=== PATIENT | female | born 1940 | race Caucasian/White ===

== ENCOUNTER 2016-12-12 20:53 | Inpatient (IN) | payer MEDICARE, MEDICAID ==
[2016-12-12 22:15] LABS: HEMATOCRIT 27.9 % (41.0-60); HEMOGLOBIN 9.3 gm/dL (12-16); MEAN CELL VOLUME 93.2 fl (81-100); MEAN CORPUSCULAR HEMOGLOBIN 31.1 pg (27.0-31.0); MEAN CORPUSCULAR HGB CONC 33.4 pg (28.0-36.0); PLATELET COUNT 219 Th/cmm (150-400); RED BLOOD COUNT 2.99 Mil/cmm (3.80-5.20); RED CELL DISTRIBUTION WIDTH 14.9 % (11.5-20.0)
[2016-12-12 22:20] LABS: MANUAL DIFF REQUIRED? YES; WHITE BLOOD COUNT 12.4 Th/cmm (4.8-10.8)
[2016-12-12 22:23] LABS: INR 0.9 (0.5-1.4); PROTHROMBIN TIME (TEST) 9.3 SECONDS (9.5-11.5)
[2016-12-12] MEDS ORDERED: Levofloxacin 500mg/100mL 500 MG/100 ML BAG IV ONE ×2 (22:23→22:55)
[2016-12-12 22:27] LABS: ALB/GLOB RATIO 0.7 (1.0-1.8); ALBUMIN 2.5 gm/dL (3.7-5.3); ALKALINE PHOSPHATASE 105 U/L (34-104); ANION GAP 11.1 (7.0-16.0); BILIRUBIN,TOTAL 0.3 mg/dL (0.3-1.0); BUN - UREA NITROGEN 59 mg/dL (7-25); CALCIUM SERUM 8.2 mg/dL (8.6-10.3); CARBON DIOXIDE 26.9 mEq/L (21.0-31.0); CHLORIDE 94 mEq/L (98-107); CHOLESTEROL 145 mg/dL (<200); CREATININE - SERUM 1.2 mg/dL (0.6-1.2); CREATININE KINASE < 10 U/L (30-223); GLUCOSE 151 mg/dL (70-105); HDL -HIGH DENSITY LIPOPROTEIN 36 mg/dL (23-92); SGOT 27 U/L (13-39); SGPT/ALT 37 U/L (7-52); SODIUM SERUM 128 mEq/L (136-145); TOTAL PROTEIN,SERUM 6.2 gm/dL (6.0-8.3); TRIGLYCERIDES 215 mg/dL (<150)
--- NOTE | 2016-12-12 22:29 | ED Physician Chart ---
ED Chief Complaint/HPI - Patient Information Date Seen:: 12/12/16 Time Seen:: 21:25 Chief Complaint:: Weakness History of Present Illness:: onset x one day of generalized weakness with poor appetite; Abnormal Labs occurred and pt was sent to ER for further evaluation; no report of trauma, AMS , ALOC, LOC, H/As, neck pain, C/P, SOB, cough, Abd. Pain, N/V/D/C, fever, chills , or pelvic pain; Hx of UTIs Allergies:: Allergies Allergy/AdvReac Type Severity Reaction Status Date / Time No Known Allergies Allergy Verified 12/12/16 21:19 Vitals:: Vital Signs - 8 hr 12/12/16 21:15 Temp 98.1 F HR 68 RR 20 BP 116/45 O2 Sat % 100 Historian:: Patient, EMS Review:: Nurse's Note Reviewed, Old Chart Reviewed, EMS run form Reviewed ED Review of Systems - Review of Systems General/Constitutional: Fever, Chills, No weight loss, No weakness, No diaphoresis, No edema, No loss of appetite Skin: No skin lesions, No rash, No bruising Head: No headache, No light-headedness Eyes: No loss of vision, No pain, No diplopia ENT: No earache, No nasal drainage, No sore throat, No tinnitus Neck: No neck pain, No swelling, No thyromegaly, No stiffness, No mass noted Cardio Vascular: No chest pain, No palpitations, No PND, No orthopnea, No edema Pulmonary: SOB, Cough, No sputum, Wheezing GI: No nausea, No vomiting, No diarrhea, No pain, No melena, No hematochezia, No constipation, No hematemesis G/U: Dysuria, Frequency, No hematuria, No nacturia Manager Monitoring: No vaginal discharge, No abnormal vaginal bleed, No contraction Musculoskeletal: No bone or joint pain, No back pain, No muscle pain Endocrine: Polyuria, Polydipsia Psychiatric: No prior psych history, No depression, No anxiety, No suicidal ideation Hematopoietic: No bruising, No lymphadenopathy Allergic/Immuno: No urticaria, No angioedema Neurological: No syncope, No focal symptoms, No weakness, No paresthesia, No headache, No seizure, No dizziness, No confusion, No vertigo ED Past Medical History - Past Medical History Obtainable: Yes Past Medical History: HTN, DM, Asthma/COPD, Dyslipidemia, PUD/GERD, Arthritis Family History: Diabetes Melitus, HTN Social History: Non Smoker, No Alcohol, No Drug Use, Single, Care Facility Surgical History: PEG/GTube Psychiatricy History: None Medication: Reviewed ED Physical Exam - Physical Examination General/Constitutional: Awake, Well-developed, well-nourished, Alert, No distress, GCS 15, Non-toxic appearing, Ambulatory Head: Atraumatic Eyes: Lids, conjuctiva normal, PERRL, EOMI Skin: Nl inspection, No rash, No skin lesions, No ecchymosis, Well hydrated, No lymphadenopathy ENMT: External ears, nose nl, TM canals nl, Nasal exam nl, Lips, teeth, gums nl , Oropharynx nl, Tonsils nl Neck: Nontender, Full ROM w/o pain, No JVD, No nuchal rigidity, No bruit, No mass, No stridor Respiratory: Nl effort/Exclusion Other Respiratory comments:: Lungs: + Rales and Rhonchi Cardio Vascular: RRR, No murmur, gallop, rubs, NL S1 S2 GI: No tenderness/rebounding/guarding, No organomegaly, No hernia, Normal BS's, Nondistended, No mass/bruits, No McBurney tenderness : No CVA tenderness Extremities: No tenderness or effusion, Full ROM, normal strength in all extremities, No edema, Normal digits & nails Neuro/Psych: Alert/oriented, DTR's symmetric, Normal sensory exam, Normal motor strength, Judgement/insight normal, Mood normal, Normal gait, No focal deficits Misc: Normal back, No paraspinal tenderness ED Labs/Radiology/EKG Results - Lab Results Results: Laboratory Tests 12/12/16 21:56 WBC 12.4 H RBC 2.99 L Hgb 9.3 L Hct 27.9 L MCV 93.2 MCH 31.1 H MCHC Differential 33.4 RDW 14.9 Plt Count 219 MPV 10.0 - Radiology Results Comments:: CXR: + Infiltrate - EKG Interpretations EKG Time:: 22:29 Rate & Rhythm: 64; NSR Comments:: non-specific st-t changes; RBBB; T-Wave Inversions in V4, V5, and V6 ED Septic Shock - . Is Septic Shock (SBP<90, OR Lactate>4 mmol\L) present?: No - <6hrs of presentation: Vital Signs: Vital Signs - 8 hr 12/12/16 21:15 Temp 98.1 F HR 68 RR 20 BP 116/45 O2 Sat % 100 ED Reassessment (Disposition) - Reassessment Reassessment Condition:: Improved - Diagnosis Diagnosis:: Myocardial Ischemia; Anemia; Leukocytosis; Sepsis; PNA; Weakness; Dehydration - Aftercare/Follow up Instructions Aftercare/Follow-Up Instructions:: Counseled pt regarding lab results/diagnosis & need follow up, Counseled pt & family regarding lab results/diagnosis & need follow up - Patient Disposition Discharge/Transfer:: Acute Care w/in this hosp Accepting Physician:: Dr. Galvan Time Called:: 2199 Time Responded:: 22:00 Admitted to:: Telemetry Spoke to:: Dr. Galvan Admitting Medical Physician:: dr. Galvan Condition at Disposition:: Stable, Improved
[2016-12-12 22:41] LABS: NEUTROPHILS 84 % (40-80); TOTAL CELLS COUNTED 100
[2016-12-12 22:42] LABS: BAND NEUTROPHILE 6 % (0-10); EOSINOPHIL 1 % (0-5); LYMPHOCYTE 8 % (20-50); MONOCYTE 1 % (2-10); PLATELET ESTIMATE ADEQUATE (NORMAL)
[2016-12-12 23:32] LABS: URINE MICROSCOPIC INDICATED? YES; URINE SOURCE MIDSTREAM
[2016-12-12 23:38] LABS: URINE BILIRUBIN NEGATIVE (NEGATIVE); URINE BLOOD TRACE (NEGATIVE); URINE GLUCOSE (UA) NEGATIVE (NEGATIVE); URINE KETONE NEGATIVE (NEGATIVE); URINE LEUKOCYTE ESTERASE LARGE (NEGATIVE); URINE NITRATE POSITIVE (NEGATIVE); URINE PH 6.5 (4.6 - 8.0); URINE PROTEIN 100 mg/dL (NEGATIVE); URINE UROBILINOGEN 0.2 E.U./dL (0.2 - 1.0)
[2016-12-12 23:42] LABS: URINE CLARITY CLOUDY (CLEAR); URINE COLOR YELLOW
[2016-12-12 23:45] LABS: URINE BACTERIA MANY /hpf (NONE SEEN); URINE EPITHELIAL CELLS MODERATE /lpf (FEW); URINE WBC >100 /hpf (0-5)
[2016-12-13] MEDS ORDERED: Albuterol/Ipratropium Neb 3 ML AERS HHN PRN (01:26)
[2016-12-13 02:22] VITALS: BP 118/64
[2016-12-13] MEDS: D5-0.9%NS 1,000 ML IV SCH ×2 (03:36→20:02)
[2016-12-13] MEDS: cefTRIAXone 1 GM in Sodium Chloride 0.9% 50 ML IV SCH (03:36)
[2016-12-13] MEDS: Albuterol/Ipratropium Neb 3 ML AERS HHN SCH ×6 (04:34→22:50)
[2016-12-13] MEDS: INSULIN ASPART SLIDING SCALE 100 UNITS/ML UNIT SUBQ SCH ×3 (07:03→17:31)
--- NOTE | 2016-12-13 07:34 | Diagnostic Imaging Report ---
CHEST X-RAY: AP view INDICATION: pain COMPARISON: None FINDINGS: Chronic lung changes are seen with left-sided pleural thickening. Cardiomegaly is noted. Degenerative changes of the spine are noted. Degenerative changes of shoulders are also noted. IMPRESSION: Chronic lung changes with left-sided pleural thickening. No focal consolidation identified. Cardiomegaly.
[2016-12-13] MEDS ORDERED: Non-Formulary Item 1 EA (Omeprazole [Omeprazole] 20 MG) GT SCH (09:00)
[2016-12-13] MEDS: Levetiracetam 500 mg/5mL 5mL UDC GT SCH ×2 (09:46→21:47)
[2016-12-13] MEDS: Pantoprazole 40 mg/Packet GT SCH (09:47)
[2016-12-13] MEDS: Insulin Detemir 100 units/mL 10mL Vial SUBQ SCH ×2 (10:32→21:46)
[2016-12-13] MEDS ORDERED: Probiotic Screen MC PRN (15:00)
[2016-12-13] MEDS: Acetaminophen 160 MG/5 ML UDC PO PRN (20:01)
[2016-12-13] MEDS ORDERED: Non-Formulary Item 1 EA (Melatonin [Melatonin] 6 MG) GT SCH (21:00)
--- NOTE | 2016-12-13 22:12 | History & Physical ---
ADMIT DATE: 12/13/2016 HISTORY OF PRESENT ILLNESS: This patient is very well known to me. The patient has been in [facility], but now the patient was at [facility]. The patient is known to have a history of hypertension, history of diabetes, history of COPD, history of seizures, history of osteoarthritis, history of dysphagia, and patient has had multiple medications, essentially was having poor intake. The patient was very weak. The patient had a urinalysis done which showed a lot of white cells and bacteria in the urine as well as 3+ leukocyte esterase positive and the patient was somewhat confused and the Dilantin level was less than 2.5 for which he was referred to the Emergency Room at [facility]. The patient was evaluated and because the patient had dysuria, foul smelling, as well as the patient was confused with possible sepsis, the patient was admitted. The patient apparently had a workup done, which included white count of 12.4, hemoglobin of 9.3, and the patient's sodium was very low at 128. The patient's BUN is 59, creatinine 1.2, and also alkaline phosphatase was high. Beta natriuretic peptide was slightly high and, of course, her urine had evidence of infection. PHYSICAL EXAMINATION: GENERAL: The patient is awake, but confused. HEAD: Normocephalic. NECK: Supple, nontender. LUNGS: Bilateral rales. CARDIOVASCULAR SYSTEM: S1, S2 heard. ABDOMEN: Soft. Bowel sounds are heard. CENTRAL NERVOUS SYSTEM: Decreased sensorium. DIAGNOSES: Sepsis, possible sepsis syndrome, anemia, pneumonia, myocardial ischemia, hyponatremia, arthritis, history of dysphagia, history of gastrotomy status, history of COPD, and history of sleep apnea was made. PLAN: The patient is going to be admitted and will have IV antibiotics, fluids, and will have ID consult and also Neurology consult, and I will follow the patient closely. [facility]# [id number]
[2016-12-14] MEDS: INSULIN ASPART SLIDING SCALE 100 UNITS/ML UNIT SUBQ SCH ×4 (01:09→17:54)
[2016-12-14] MEDS: cefTRIAXone 1 GM in Sodium Chloride 0.9% 50 ML IV SCH (04:09)
[2016-12-14 05:55] LABS: MEAN PLATELET VOLUME 9.5 fl; RED CELL DISTRIBUTION WIDTH 15.3 % (11.5-20.0)
[2016-12-14] MEDS: Acetaminophen 160 MG/5 ML UDC PO PRN ×2 (06:14→17:47)
[2016-12-14 06:16] LABS: MEAN CELL VOLUME 92.1 fl (81-100); MEAN CORPUSCULAR HEMOGLOBIN 31.2 pg (27.0-31.0); MEAN CORPUSCULAR HGB CONC 33.9 pg (28.0-36.0); PLATELET COUNT 209 Th/cmm (150-400); RED BLOOD COUNT 2.49 Mil/cmm (3.80-5.20); WHITE BLOOD COUNT 10.2 Th/cmm (4.8-10.8)
[2016-12-14 06:27] LABS: ANION GAP 9.6 (7.0-16.0); BUN - UREA NITROGEN 58 mg/dL (7-25); CALCIUM SERUM 6.9 mg/dL (8.6-10.3); CHLORIDE 102 mEq/L (98-107); CREATININE - SERUM 1.2 mg/dL (0.6-1.2); GLUCOSE 219 mg/dL (70-105); POTASSIUM SERUM 3.6 mEq/L (3.5-5.1); SODIUM SERUM 134 mEq/L (136-145)
[2016-12-14 06:47] LABS: HEMOGLOBIN 7.8 gm/dL (12-16); MANUAL DIFF REQUIRED? YES
[2016-12-14] MEDS: Albuterol/Ipratropium Neb 3 ML AERS HHN SCH ×5 (07:02→23:09)
[2016-12-14 07:12] LABS: A1C % 7.3 % (4.0-6.0)
[2016-12-14 07:23] LABS: BAND NEUTROPHILE 6 % (0-10); EOSINOPHIL 1 % (0-5); LYMPHOCYTE 18 % (20-50); MONOCYTE 5 % (2-10); NEUTROPHILS 70 % (40-80); TOTAL CELLS COUNTED 100
[2016-12-14] MEDS: Pantoprazole 40 mg/Packet GT SCH (08:53)
[2016-12-14] MEDS: Levetiracetam 500 mg/5mL 5mL UDC GT SCH ×2 (08:53→21:43)
[2016-12-14] MEDS: Lactobacillus Rhamnosus 10 Billion CFU Capsule PO SCH (08:53)
[2016-12-14] MEDS: Insulin Detemir 100 units/mL 10mL Vial SUBQ SCH ×2 (08:57→21:42)
[2016-12-14] MEDS: D5-0.9%NS 1,000 ML IV SCH (10:31)
[2016-12-14] MEDS: Acetaminophen 160 MG/5 ML UDC GT PRN ×2 (12:07→21:43)
[2016-12-14 18:16] LABS: HEMATOCRIT 23.5 % (41.0-60); MEAN CORPUSCULAR HEMOGLOBIN 31.5 pg (27.0-31.0); MEAN CORPUSCULAR HGB CONC 33.9 pg (28.0-36.0); MEAN PLATELET VOLUME 9.2 fl; PLATELET COUNT 189 Th/cmm (150-400); RED BLOOD COUNT 2.53 Mil/cmm (3.80-5.20); RED CELL DISTRIBUTION WIDTH 15.6 % (11.5-20.0); WHITE BLOOD COUNT 11.1 Th/cmm (4.8-10.8)
[2016-12-14 18:20] LABS: MANUAL DIFF REQUIRED? YES
[2016-12-14 18:45] LABS: BAND NEUTROPHILE 4 % (0-10); LYMPHOCYTE 13 % (20-50); MONOCYTE 3 % (2-10); NEUTROPHILS 80 % (40-80); PLATELET ESTIMATE ADEQUATE (NORMAL); TOTAL CELLS COUNTED 100
--- NOTE | 2016-12-14 22:16 | General Progress Note ---
Subjective - Review of Systems Service Date: 12/14/16 Subjective: awake confused nad Objective - Results Result Diagrams: 12/14/16 18:03 12/14/16 05:20 Recent Labs: Laboratory Last Values WBC 11.1 Th/cmm (4.8-10.8) H 12/14/16 18:03 RBC 2.53 Mil/cmm (3.80-5.20) L 12/14/16 18:03 Hgb 8.0 gm/dL (12-16) L 12/14/16 18:03 Hct 23.5 % (41.0-60) L 12/14/16 18:03 MCV 93.0 fl (81-100) 12/14/16 18:03 MCH 31.5 pg (27.0-31.0) H 12/14/16 18:03 MCHC Differential 33.9 pg (28.0-36.0) 12/14/16 18:03 RDW 15.6 % (11.5-20.0) 12/14/16 18:03 Plt Count 189 Th/cmm (150-400) 12/14/16 18:03 MPV 9.2 fl 12/14/16 18:03 Band Neutrophils % 4 % (0-10) 12/14/16 18:03 Neutrophils (Manual) 80 % (40-80) 12/14/16 18:03 Lymphocytes 13 % (20-50) L 12/14/16 18:03 Monocytes 3 % (2-10) 12/14/16 18:03 Eosinophils 1 % (0-5) 12/14/16 05:20 Platelet Estimate ADEQUATE (NORMAL) 12/14/16 18:03 PT 9.3 SECONDS (9.5-11.5) L 12/12/16 21:56 INR 0.90 (0.5-1.4) 12/12/16 21:56 PTT (Actin FS) 22.0 SECONDS (26.0-38.0) L 12/12/16 21:56 Sodium 134 mEq/L (136-145) L 12/14/16 05:20 Potassium 3.6 mEq/L (3.5-5.1) 12/14/16 05:20 Chloride 102 mEq/L (98-107) 12/14/16 05:20 Carbon Dioxide 26.0 mEq/L (21.0-31.0) 12/14/16 05:20 Anion Gap 9.6 (7.0-16.0) 12/14/16 05:20 BUN 58 mg/dL (7-25) H 12/14/16 05:20 Creatinine 1.2 mg/dL (0.6-1.2) 12/14/16 05:20 Est GFR ( Amer) TNP 12/14/16 05:20 Est GFR (Non-Af Amer) TNP 12/14/16 05:20 BUN/Creatinine Ratio 48.3 12/14/16 05:20 Glucose 219 mg/dL (70-105) H 12/14/16 05:20 POC Glucose 195 MG/DL (70 - 105) H 12/14/16 21:36 Hemoglobin A1c % 7.3 % (4.0-6.0) H 12/14/16 05:20 Whole Bld Lactic Acid 1.82 mmol/L (0.60-1.99) 12/12/16 21:56 Calcium 6.9 mg/dL (8.6-10.3) L 12/14/16 05:20 Total Bilirubin 0.3 mg/dL (0.3-1.0) 12/12/16 21:36 AST 27 U/L (13-39) 12/12/16 21:36 ALT 37 U/L (7-52) 12/12/16 21:36 Alkaline Phosphatase 105 U/L (34-104) H 12/12/16 21:36 Creatine Kinase < 10 U/L (30-223) L 12/12/16 21:36 Troponin I 0.04 ng/mL (0.01-0.05) 12/12/16 21:56 B-Natriuretic Peptide 440.0 pg/mL (5.0-100.0) H 12/12/16 21:56 Total Protein 6.2 gm/dL (6.0-8.3) 12/12/16 21:36 Albumin 2.5 gm/dL (3.7-5.3) L 12/12/16 21:36 Globulin 3.7 gm/dL 12/12/16 21:36 Albumin/Globulin Ratio 0.7 (1.0-1.8) L 12/12/16 21:36 Triglycerides 215 mg/dL (<150) H 12/12/16 21:36 Cholesterol 145 mg/dL (<200) 12/12/16 21:36 LDL Cholesterol Direct 87 mg/dL (75-193) 12/12/16 21:36 HDL Cholesterol 36 mg/dL (23-92) 12/12/16 21:36 Urine Source MIDSTREAM 12/12/16 23:15 Urine Color YELLOW 12/12/16 23:15 Urine Clarity CLOUDY (CLEAR) H 12/12/16 23:15 Urine pH 6.5 (4.6 - 8.0) 12/12/16 23:15 Ur Specific [place] 1.010 (1.005-1.030) 12/12/16 23:15 Urine Protein 100 mg/dL (NEGATIVE) H 12/12/16 23:15 Urine Glucose (UA) NEGATIVE mg/dL (NEGATIVE) 12/12/16 23:15 Urine Ketones NEGATIVE mg/dL (NEGATIVE) 12/12/16 23:15 Urine Blood TRACE (NEGATIVE) 12/12/16 23:15 Urine Nitrate POSITIVE (NEGATIVE) H 12/12/16 23:15 Urine Bilirubin NEGATIVE (NEGATIVE) 12/12/16 23:15 Urine Urobilinogen 0.2 E.U./dL (0.2 - 1.0) 12/12/16 23:15 Ur Leukocyte Esterase LARGE (NEGATIVE) H 12/12/16 23:15 Urine RBC 2-5 /hpf (0-5) 12/12/16 23:15 Urine WBC >100 /hpf (0-5) H 12/12/16 23:15 Ur Epithelial Cells MODERATE /lpf (FEW) 12/12/16 23:15 Urine Bacteria MANY /hpf (NONE SEEN) 12/12/16 23:15 - Physical Exam Vitals and I&O: Vital Signs Temp 98.7 F 12/14/16 16:00 Pulse 76 12/14/16 21:44 Resp 18 12/14/16 19:20 BP 156/60 12/14/16 21:44 Pulse Ox 99 12/14/16 19:20 Intake & Output 12/14/16 12/14/16 12/15/16 06:59 18:59 06:59 Intake Total 100 1000 Output Total 350 Balance -250 1000 Weight (lbs) 100.244 kg 100.244 kg Intake: Intake, IV Amount 100 1000 D5-0.9%Ns 1,000 ml @ 75 1000 mls/hr IV .[id number] [facility] Rx #:[id number] cefTRIAXone 1 gm In 100 Sodium Chloride 0.9% 50 ml @ 100 mls/hr IV Q24HR [facility] Rx#:[id number] Oral 0 Output: Urine 350 Other: # Bowel Movements 0 Active Medications: Current Medications Acetaminophen (Tylenol Children) 320 mg GT Q4HR PRN PRN Reason: TEMP >100F Stop: 02/11/17 01:25 Last Admin: 12/14/16 21:43 Dose: 320 mg Acetaminophen (Tylenol Children) 320 mg PO Q4HR PRN PRN Reason: Pain (Mild) Stop: 02/11/17 01:25 Last Admin: 12/14/16 17:47 Dose: 320 mg Albuterol/Ipratropium (Duoneb Neb) 3 ml HHN Q2HR PRN PRN Reason: Shortness of Breath or Wheeze Stop: 02/11/17 01:25 Albuterol/Ipratropium (Duoneb Neb) 3 ml HHN Q4HRT [facility] Stop: 02/11/17 02:59 Last Admin: 12/14/16 19:32 Dose: 3 ml Amlodipine Besylate (Norvasc) 5 mg GT DAILY [facility] Stop: 02/11/17 08:59 Last Admin: 12/14/16 08:54 Dose: 5 mg Carvedilol (Coreg) 12.5 mg GT Q12HR [facility] Stop: 02/11/17 08:59 Last Admin: 12/14/16 21:44 Dose: 12.5 mg Ceftriaxone Sodium 1 gm/ (Sodium Chloride) 50 mls @ 100 mls/hr IV Q24HR [facility] Stop: 02/11/17 02:59 Last Infusion: 12/14/16 05:45 Dose: Infused Dextrose/Sodium Chloride (D5-0.9%Ns) 1,000 mls @ 50 mls/hr IV .Q20H [facility] Stop: 02/12/17 21:44 Insulin Aspart (Novolog Insulin Sliding Scale) 0 units SUBQ Q6HR [facility] PRN Reason: Protocol Stop: 02/11/17 05:59 Last Admin: 12/14/16 17:54 Dose: 6 units Insulin Detemir (Levemir Insulin) 10 units SUBQ Q12HR [facility] Stop: 02/11/17 08:59 Last Admin: 12/14/16 21:42 Dose: 10 units Lactobacillus Rhamnosus (Culturelle) 1 each PO DAILY [facility] Stop: 02/12/17 08:59 Last Admin: 12/14/16 08:53 Dose: 1 each Levetiracetam (Keppra) 1,000 mg GT Q12HR [facility] Stop: 02/11/17 08:59 Last Admin: 12/14/16 21:43 Dose: 1,000 mg Miscellaneous (Probiotic Screen) 1 ea MC PRN PRN PRN Reason: PROTOCOL Stop: 02/11/17 14:59 Pantoprazole Sodium (Protonix) 40 mg GT QAM [facility] Stop: 02/11/17 08:59 Last Admin: 12/14/16 08:53 Dose: 40 mg Phenytoin (Dilantin) 100 mg GT BID [facility] Stop: 02/11/17 08:59 Last Admin: 12/14/16 17:47 Dose: 100 mg General: Alert, Other (confused) HEENT: Atraumatic Cardiovascular: Regular rate Abdomen: Bowel sounds, Soft Extremities: Pulses Assessment/Plan - Assessment Assessment: sepsis poss sepsis syndrome anemia pneumonia myocardiac ischemia hyponatremia arthritis hx dysphagia hx gt status hx copd hx sleep apnea - Plan Plan: ivantibiotics iv fluid cpm Nutritional Asmnt/Malnutr-PDOC - Dietary Evaluation Malnutrition Findings (Please click <Entered> for more info): Nutritional Asmnt/Malnutrition Start: 12/13/16 15: 20 Text: Status: Complete Freq: Document 12/13/16 15:21 GSUN (Rec: 12/13/16 15:43 [facility] Nutritional Asmnt/Malnutrition Patient General Information Nutritional Screening High Risk Screening Diagnosis ER report: MN, sepsis, PNA, dehydration, anemia, leykocytosis, weakness Pertinent Medical Hx/Surgical Hx ER report: HTN, DM, asthma/ COPD, dyslipidemia, PUD/GERD, arthritis Subjective Information 76 year old female from SNF. 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 Observed tube feeding infusing as ordered. Confirmed tube feeding order and on/off time with GREGORIO Lozano RN stated pt tolerating well since adm. Pt appeared mobidly obese. Unable to obtain CBW due to bedscale imporperly calibrated. Current Diet Order/ Nutrition Support Diabetisource 65ml/hr x 20hrs, providing 1560kcal, 78g protein Pertinent Medications D5-0.9%ns, Novolog, Levemir, Culturelle, Protonix, Dilatin Pertinent Labs 12/12: glucose 151H, triglycerides 215H, BUN 59H POC glucose 169H, 186H Nutritional Hx/Data Height 1.55 m Height (Calculated Centimeters) 154.9 Current Weight (lbs) 100.244 kg Weight (Calculated Kilograms) 100.2 Weight (Calculated Grams) 007363.9 [place] Body Weight 105 Weight Status Morbidly Obese GI Symptoms Food Allergies No Usual diet at home [facility]: glucerna 1.2 at 60ml/hr x 20hrs Skin Integrity/Comment: [place] 13. Left and right buttocks reddened. Estimated Nutritional Goals BEE in Kcals: Adj wt of IBW Calories/Kcals/Kg AdjBW 131.5lb/59.8kg (to 211lb adm weight 12/12/16) Kcals Calculated 1794-2093kcal (30-35kcal/kg) Protein: Adj wt of IBW Protein Calculated 72-90g (1.2-1.5g/kg) Fluid: ml 1794-2093ml (1ml/kcal) Nutritional Problem 1. Problem Problem Increased kcal and prot needs related to Etiology hypermatbolic state aeb Signs/Symptoms: PNA and sepsis per ER report Malnutrition Related to Morbid Obesity Malnutrition related to morbid obesity BMI> or equal to 40 Query Text:(Any 1 Criteria met) Malnutrition related to morbid obesity Yes Intervention/Recommendation Comments 1. Recommend increasing Diabetisource to 75ml/hr x 20hrs, providing 1800kcal, 90g protein, 1500ml total volume. Increased kcal and prot needs due to hypermetabolic state - sepsis, PNA per ER report. Expected Outcomes/Goals Expected Outcomes/Goals 1. Pt to meet at least 100% of estimated nutritinoal needs on tube feeding with tolerance .
--- NOTE | 2016-12-14 22:16 | General Progress Note ---
Subjective - Review of Systems Service Date: 12/14/16 Subjective: awake confused nad Objective - Results Result Diagrams: 12/14/16 18:03 12/14/16 05:20 Recent Labs: Laboratory Last Values WBC 11.1 Th/cmm (4.8-10.8) H 12/14/16 18:03 RBC 2.53 Mil/cmm (3.80-5.20) L 12/14/16 18:03 Hgb 8.0 gm/dL (12-16) L 12/14/16 18:03 Hct 23.5 % (41.0-60) L 12/14/16 18:03 MCV 93.0 fl (81-100) 12/14/16 18:03 MCH 31.5 pg (27.0-31.0) H 12/14/16 18:03 MCHC Differential 33.9 pg (28.0-36.0) 12/14/16 18:03 RDW 15.6 % (11.5-20.0) 12/14/16 18:03 Plt Count 189 Th/cmm (150-400) 12/14/16 18:03 MPV 9.2 fl 12/14/16 18:03 Band Neutrophils % 4 % (0-10) 12/14/16 18:03 Neutrophils (Manual) 80 % (40-80) 12/14/16 18:03 Lymphocytes 13 % (20-50) L 12/14/16 18:03 Monocytes 3 % (2-10) 12/14/16 18:03 Eosinophils 1 % (0-5) 12/14/16 05:20 Platelet Estimate ADEQUATE (NORMAL) 12/14/16 18:03 PT 9.3 SECONDS (9.5-11.5) L 12/12/16 21:56 INR 0.90 (0.5-1.4) 12/12/16 21:56 PTT (Actin FS) 22.0 SECONDS (26.0-38.0) L 12/12/16 21:56 Sodium 134 mEq/L (136-145) L 12/14/16 05:20 Potassium 3.6 mEq/L (3.5-5.1) 12/14/16 05:20 Chloride 102 mEq/L (98-107) 12/14/16 05:20 Carbon Dioxide 26.0 mEq/L (21.0-31.0) 12/14/16 05:20 Anion Gap 9.6 (7.0-16.0) 12/14/16 05:20 BUN 58 mg/dL (7-25) H 12/14/16 05:20 Creatinine 1.2 mg/dL (0.6-1.2) 12/14/16 05:20 Est GFR ( Amer) TNP 12/14/16 05:20 Est GFR (Non-Af Amer) TNP 12/14/16 05:20 BUN/Creatinine Ratio 48.3 12/14/16 05:20 Glucose 219 mg/dL (70-105) H 12/14/16 05:20 POC Glucose 195 MG/DL (70 - 105) H 12/14/16 21:36 Hemoglobin A1c % 7.3 % (4.0-6.0) H 12/14/16 05:20 Whole Bld Lactic Acid 1.82 mmol/L (0.60-1.99) 12/12/16 21:56 Calcium 6.9 mg/dL (8.6-10.3) L 12/14/16 05:20 Total Bilirubin 0.3 mg/dL (0.3-1.0) 12/12/16 21:36 AST 27 U/L (13-39) 12/12/16 21:36 ALT 37 U/L (7-52) 12/12/16 21:36 Alkaline Phosphatase 105 U/L (34-104) H 12/12/16 21:36 Creatine Kinase < 10 U/L (30-223) L 12/12/16 21:36 Troponin I 0.04 ng/mL (0.01-0.05) 12/12/16 21:56 B-Natriuretic Peptide 440.0 pg/mL (5.0-100.0) H 12/12/16 21:56 Total Protein 6.2 gm/dL (6.0-8.3) 12/12/16 21:36 Albumin 2.5 gm/dL (3.7-5.3) L 12/12/16 21:36 Globulin 3.7 gm/dL 12/12/16 21:36 Albumin/Globulin Ratio 0.7 (1.0-1.8) L 12/12/16 21:36 Triglycerides 215 mg/dL (<150) H 12/12/16 21:36 Cholesterol 145 mg/dL (<200) 12/12/16 21:36 LDL Cholesterol Direct 87 mg/dL (75-193) 12/12/16 21:36 HDL Cholesterol 36 mg/dL (23-92) 12/12/16 21:36 Urine Source MIDSTREAM 12/12/16 23:15 Urine Color YELLOW 12/12/16 23:15 Urine Clarity CLOUDY (CLEAR) H 12/12/16 23:15 Urine pH 6.5 (4.6 - 8.0) 12/12/16 23:15 Ur Specific [place] 1.010 (1.005-1.030) 12/12/16 23:15 Urine Protein 100 mg/dL (NEGATIVE) H 12/12/16 23:15 Urine Glucose (UA) NEGATIVE mg/dL (NEGATIVE) 12/12/16 23:15 Urine Ketones NEGATIVE mg/dL (NEGATIVE) 12/12/16 23:15 Urine Blood TRACE (NEGATIVE) 12/12/16 23:15 Urine Nitrate POSITIVE (NEGATIVE) H 12/12/16 23:15 Urine Bilirubin NEGATIVE (NEGATIVE) 12/12/16 23:15 Urine Urobilinogen 0.2 E.U./dL (0.2 - 1.0) 12/12/16 23:15 Ur Leukocyte Esterase LARGE (NEGATIVE) H 12/12/16 23:15 Urine RBC 2-5 /hpf (0-5) 12/12/16 23:15 Urine WBC >100 /hpf (0-5) H 12/12/16 23:15 Ur Epithelial Cells MODERATE /lpf (FEW) 12/12/16 23:15 Urine Bacteria MANY /hpf (NONE SEEN) 12/12/16 23:15 - Physical Exam Vitals and I&O: Vital Signs Temp 98.7 F 12/14/16 16:00 Pulse 76 12/14/16 21:44 Resp 18 12/14/16 19:20 BP 156/60 12/14/16 21:44 Pulse Ox 99 12/14/16 19:20 Intake & Output 12/14/16 12/14/16 12/15/16 06:59 18:59 06:59 Intake Total 100 1000 Output Total 350 Balance -250 1000 Weight (lbs) 100.244 kg 100.244 kg Intake: Intake, IV Amount 100 1000 D5-0.9%Ns 1,000 ml @ 75 1000 mls/hr IV .[id number] [facility] Rx #:[id number] cefTRIAXone 1 gm In 100 Sodium Chloride 0.9% 50 ml @ 100 mls/hr IV Q24HR [facility] Rx#:[id number] Oral 0 Output: Urine 350 Other: # Bowel Movements 0 Active Medications: Current Medications Acetaminophen (Tylenol Children) 320 mg GT Q4HR PRN PRN Reason: TEMP >100F Stop: 02/11/17 01:25 Last Admin: 12/14/16 21:43 Dose: 320 mg Acetaminophen (Tylenol Children) 320 mg PO Q4HR PRN PRN Reason: Pain (Mild) Stop: 02/11/17 01:25 Last Admin: 12/14/16 17:47 Dose: 320 mg Albuterol/Ipratropium (Duoneb Neb) 3 ml HHN Q2HR PRN PRN Reason: Shortness of Breath or Wheeze Stop: 02/11/17 01:25 Albuterol/Ipratropium (Duoneb Neb) 3 ml HHN Q4HRT [facility] Stop: 02/11/17 02:59 Last Admin: 12/14/16 19:32 Dose: 3 ml Amlodipine Besylate (Norvasc) 5 mg GT DAILY [facility] Stop: 02/11/17 08:59 Last Admin: 12/14/16 08:54 Dose: 5 mg Carvedilol (Coreg) 12.5 mg GT Q12HR [facility] Stop: 02/11/17 08:59 Last Admin: 12/14/16 21:44 Dose: 12.5 mg Ceftriaxone Sodium 1 gm/ (Sodium Chloride) 50 mls @ 100 mls/hr IV Q24HR [facility] Stop: 02/11/17 02:59 Last Infusion: 12/14/16 05:45 Dose: Infused Dextrose/Sodium Chloride (D5-0.9%Ns) 1,000 mls @ 50 mls/hr IV .Q20H [facility] Stop: 02/12/17 21:44 Insulin Aspart (Novolog Insulin Sliding Scale) 0 units SUBQ Q6HR [facility] PRN Reason: Protocol Stop: 02/11/17 05:59 Last Admin: 12/14/16 17:54 Dose: 6 units Insulin Detemir (Levemir Insulin) 10 units SUBQ Q12HR [facility] Stop: 02/11/17 08:59 Last Admin: 12/14/16 21:42 Dose: 10 units Lactobacillus Rhamnosus (Culturelle) 1 each PO DAILY [facility] Stop: 02/12/17 08:59 Last Admin: 12/14/16 08:53 Dose: 1 each Levetiracetam (Keppra) 1,000 mg GT Q12HR [facility] Stop: 02/11/17 08:59 Last Admin: 12/14/16 21:43 Dose: 1,000 mg Miscellaneous (Probiotic Screen) 1 ea MC PRN PRN PRN Reason: PROTOCOL Stop: 02/11/17 14:59 Pantoprazole Sodium (Protonix) 40 mg GT QAM [facility] Stop: 02/11/17 08:59 Last Admin: 12/14/16 08:53 Dose: 40 mg Phenytoin (Dilantin) 100 mg GT BID [facility] Stop: 02/11/17 08:59 Last Admin: 12/14/16 17:47 Dose: 100 mg General: Alert, Other (confused) HEENT: Atraumatic Cardiovascular: Regular rate Abdomen: Bowel sounds, Soft Extremities: Pulses Assessment/Plan - Assessment Assessment: sepsis poss sepsis syndrome anemia pneumonia myocardiac ischemia hyponatremia arthritis hx dysphagia hx gt status hx copd hx sleep apnea - Plan Plan: ivantibiotics iv fluid cpm Nutritional Asmnt/Malnutr-PDOC - Dietary Evaluation Malnutrition Findings (Please click <Entered> for more info): Nutritional Asmnt/Malnutrition Start: 12/13/16 15: 20 Text: Status: Complete Freq: Document 12/13/16 15:21 GSUN (Rec: 12/13/16 15:43 [facility] Nutritional Asmnt/Malnutrition Patient General Information Nutritional Screening High Risk Screening Diagnosis ER report: [place], sepsis, PNA, dehydration, anemia, leykocytosis, weakness Pertinent Medical Hx/Surgical Hx ER report: HTN, DM, asthma/ COPD, dyslipidemia, PUD/GERD, arthritis Subjective Information 76 year old female from SNF. 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 Observed tube feeding infusing as ordered. Confirmed tube feeding order and on/off time with GREGORIO Lozano RN stated pt tolerating well since adm. Pt appeared mobidly obese. Unable to obtain CBW due to bedscale imporperly calibrated. Current Diet Order/ Nutrition Support Diabetisource 65ml/hr x 20hrs, providing 1560kcal, 78g protein Pertinent Medications D5-0.9%ns, Novolog, Levemir, Culturelle, Protonix, Dilatin Pertinent Labs 12/12: glucose 151H, triglycerides 215H, BUN 59H POC glucose 169H, 186H Nutritional Hx/Data Height 1.55 m Height (Calculated Centimeters) 154.9 Current Weight (lbs) 100.244 kg Weight (Calculated Kilograms) 100.2 Weight (Calculated Grams) 092485.9 [place] Body Weight 105 Weight Status Morbidly Obese GI Symptoms Food Allergies No Usual diet at home [facility]: glucerna 1.2 at 60ml/hr x 20hrs Skin Integrity/Comment: [place] 13. Left and right buttocks reddened. Estimated Nutritional Goals BEE in Kcals: Adj wt of IBW Calories/Kcals/Kg AdjBW 131.5lb/59.8kg (to 211lb adm weight 12/12/16) Kcals Calculated 1794-2093kcal (30-35kcal/kg) Protein: Adj wt of IBW Protein Calculated 72-90g (1.2-1.5g/kg) Fluid: ml 1794-2093ml (1ml/kcal) Nutritional Problem 1. Problem Problem Increased kcal and prot needs related to Etiology hypermatbolic state aeb Signs/Symptoms: PNA and sepsis per ER report Malnutrition Related to Morbid Obesity Malnutrition related to morbid obesity BMI> or equal to 40 Query Text:(Any 1 Criteria met) Malnutrition related to morbid obesity Yes Intervention/Recommendation Comments 1. Recommend increasing Diabetisource to 75ml/hr x 20hrs, providing 1800kcal, 90g protein, 1500ml total volume. Increased kcal and prot needs due to hypermetabolic state - sepsis, PNA per ER report. Expected Outcomes/Goals Expected Outcomes/Goals 1. Pt to meet at least 100% of estimated nutritinoal needs on tube feeding with tolerance .
--- NOTE | 2016-12-14 22:16 | General Progress Note ---
Subjective - Review of Systems Service Date: 12/14/16 Subjective: awake confused nad Objective - Results Result Diagrams: 12/14/16 18:03 12/14/16 05:20 Recent Labs: Laboratory Last Values WBC 11.1 Th/cmm (4.8-10.8) H 12/14/16 18:03 RBC 2.53 Mil/cmm (3.80-5.20) L 12/14/16 18:03 Hgb 8.0 gm/dL (12-16) L 12/14/16 18:03 Hct 23.5 % (41.0-60) L 12/14/16 18:03 MCV 93.0 fl (81-100) 12/14/16 18:03 MCH 31.5 pg (27.0-31.0) H 12/14/16 18:03 MCHC Differential 33.9 pg (28.0-36.0) 12/14/16 18:03 RDW 15.6 % (11.5-20.0) 12/14/16 18:03 Plt Count 189 Th/cmm (150-400) 12/14/16 18:03 MPV 9.2 fl 12/14/16 18:03 Band Neutrophils % 4 % (0-10) 12/14/16 18:03 Neutrophils (Manual) 80 % (40-80) 12/14/16 18:03 Lymphocytes 13 % (20-50) L 12/14/16 18:03 Monocytes 3 % (2-10) 12/14/16 18:03 Eosinophils 1 % (0-5) 12/14/16 05:20 Platelet Estimate ADEQUATE (NORMAL) 12/14/16 18:03 PT 9.3 SECONDS (9.5-11.5) L 12/12/16 21:56 INR 0.90 (0.5-1.4) 12/12/16 21:56 PTT (Actin FS) 22.0 SECONDS (26.0-38.0) L 12/12/16 21:56 Sodium 134 mEq/L (136-145) L 12/14/16 05:20 Potassium 3.6 mEq/L (3.5-5.1) 12/14/16 05:20 Chloride 102 mEq/L (98-107) 12/14/16 05:20 Carbon Dioxide 26.0 mEq/L (21.0-31.0) 12/14/16 05:20 Anion Gap 9.6 (7.0-16.0) 12/14/16 05:20 BUN 58 mg/dL (7-25) H 12/14/16 05:20 Creatinine 1.2 mg/dL (0.6-1.2) 12/14/16 05:20 Est GFR ( Amer) TNP 12/14/16 05:20 Est GFR (Non-Af Amer) TNP 12/14/16 05:20 BUN/Creatinine Ratio 48.3 12/14/16 05:20 Glucose 219 mg/dL (70-105) H 12/14/16 05:20 POC Glucose 195 MG/DL (70 - 105) H 12/14/16 21:36 Hemoglobin A1c % 7.3 % (4.0-6.0) H 12/14/16 05:20 Whole Bld Lactic Acid 1.82 mmol/L (0.60-1.99) 12/12/16 21:56 Calcium 6.9 mg/dL (8.6-10.3) L 12/14/16 05:20 Total Bilirubin 0.3 mg/dL (0.3-1.0) 12/12/16 21:36 AST 27 U/L (13-39) 12/12/16 21:36 ALT 37 U/L (7-52) 12/12/16 21:36 Alkaline Phosphatase 105 U/L (34-104) H 12/12/16 21:36 Creatine Kinase < 10 U/L (30-223) L 12/12/16 21:36 Troponin I 0.04 ng/mL (0.01-0.05) 12/12/16 21:56 B-Natriuretic Peptide 440.0 pg/mL (5.0-100.0) H 12/12/16 21:56 Total Protein 6.2 gm/dL (6.0-8.3) 12/12/16 21:36 Albumin 2.5 gm/dL (3.7-5.3) L 12/12/16 21:36 Globulin 3.7 gm/dL 12/12/16 21:36 Albumin/Globulin Ratio 0.7 (1.0-1.8) L 12/12/16 21:36 Triglycerides 215 mg/dL (<150) H 12/12/16 21:36 Cholesterol 145 mg/dL (<200) 12/12/16 21:36 LDL Cholesterol Direct 87 mg/dL (75-193) 12/12/16 21:36 HDL Cholesterol 36 mg/dL (23-92) 12/12/16 21:36 Urine Source MIDSTREAM 12/12/16 23:15 Urine Color YELLOW 12/12/16 23:15 Urine Clarity CLOUDY (CLEAR) H 12/12/16 23:15 Urine pH 6.5 (4.6 - 8.0) 12/12/16 23:15 Ur Specific [place] 1.010 (1.005-1.030) 12/12/16 23:15 Urine Protein 100 mg/dL (NEGATIVE) H 12/12/16 23:15 Urine Glucose (UA) NEGATIVE mg/dL (NEGATIVE) 12/12/16 23:15 Urine Ketones NEGATIVE mg/dL (NEGATIVE) 12/12/16 23:15 Urine Blood TRACE (NEGATIVE) 12/12/16 23:15 Urine Nitrate POSITIVE (NEGATIVE) H 12/12/16 23:15 Urine Bilirubin NEGATIVE (NEGATIVE) 12/12/16 23:15 Urine Urobilinogen 0.2 E.U./dL (0.2 - 1.0) 12/12/16 23:15 Ur Leukocyte Esterase LARGE (NEGATIVE) H 12/12/16 23:15 Urine RBC 2-5 /hpf (0-5) 12/12/16 23:15 Urine WBC >100 /hpf (0-5) H 12/12/16 23:15 Ur Epithelial Cells MODERATE /lpf (FEW) 12/12/16 23:15 Urine Bacteria MANY /hpf (NONE SEEN) 12/12/16 23:15 - Physical Exam Vitals and I&O: Vital Signs Temp 98.7 F 12/14/16 16:00 Pulse 76 12/14/16 21:44 Resp 18 12/14/16 19:20 BP 156/60 12/14/16 21:44 Pulse Ox 99 12/14/16 19:20 Intake & Output 12/14/16 12/14/16 12/15/16 06:59 18:59 06:59 Intake Total 100 1000 Output Total 350 Balance -250 1000 Weight (lbs) 100.244 kg 100.244 kg Intake: Intake, IV Amount 100 1000 D5-0.9%Ns 1,000 ml @ 75 1000 mls/hr IV .[id number] [facility] Rx #:[id number] cefTRIAXone 1 gm In 100 Sodium Chloride 0.9% 50 ml @ 100 mls/hr IV Q24HR [facility] Rx#:[id number] Oral 0 Output: Urine 350 Other: # Bowel Movements 0 Active Medications: Current Medications Acetaminophen (Tylenol Children) 320 mg GT Q4HR PRN PRN Reason: TEMP >100F Stop: 02/11/17 01:25 Last Admin: 12/14/16 21:43 Dose: 320 mg Acetaminophen (Tylenol Children) 320 mg PO Q4HR PRN PRN Reason: Pain (Mild) Stop: 02/11/17 01:25 Last Admin: 12/14/16 17:47 Dose: 320 mg Albuterol/Ipratropium (Duoneb Neb) 3 ml HHN Q2HR PRN PRN Reason: Shortness of Breath or Wheeze Stop: 02/11/17 01:25 Albuterol/Ipratropium (Duoneb Neb) 3 ml HHN Q4HRT [facility] Stop: 02/11/17 02:59 Last Admin: 12/14/16 19:32 Dose: 3 ml Amlodipine Besylate (Norvasc) 5 mg GT DAILY [facility] Stop: 02/11/17 08:59 Last Admin: 12/14/16 08:54 Dose: 5 mg Carvedilol (Coreg) 12.5 mg GT Q12HR [facility] Stop: 02/11/17 08:59 Last Admin: 12/14/16 21:44 Dose: 12.5 mg Ceftriaxone Sodium 1 gm/ (Sodium Chloride) 50 mls @ 100 mls/hr IV Q24HR [facility] Stop: 02/11/17 02:59 Last Infusion: 12/14/16 05:45 Dose: Infused Dextrose/Sodium Chloride (D5-0.9%Ns) 1,000 mls @ 50 mls/hr IV .Q20H [facility] Stop: 02/12/17 21:44 Insulin Aspart (Novolog Insulin Sliding Scale) 0 units SUBQ Q6HR [facility] PRN Reason: Protocol Stop: 02/11/17 05:59 Last Admin: 12/14/16 17:54 Dose: 6 units Insulin Detemir (Levemir Insulin) 10 units SUBQ Q12HR [facility] Stop: 02/11/17 08:59 Last Admin: 12/14/16 21:42 Dose: 10 units Lactobacillus Rhamnosus (Culturelle) 1 each PO DAILY [facility] Stop: 02/12/17 08:59 Last Admin: 12/14/16 08:53 Dose: 1 each Levetiracetam (Keppra) 1,000 mg GT Q12HR [facility] Stop: 02/11/17 08:59 Last Admin: 12/14/16 21:43 Dose: 1,000 mg Miscellaneous (Probiotic Screen) 1 ea MC PRN PRN PRN Reason: PROTOCOL Stop: 02/11/17 14:59 Pantoprazole Sodium (Protonix) 40 mg GT QAM [facility] Stop: 02/11/17 08:59 Last Admin: 12/14/16 08:53 Dose: 40 mg Phenytoin (Dilantin) 100 mg GT BID [facility] Stop: 02/11/17 08:59 Last Admin: 12/14/16 17:47 Dose: 100 mg General: Alert, Other (confused) HEENT: Atraumatic Cardiovascular: Regular rate Abdomen: Bowel sounds, Soft Extremities: Pulses Assessment/Plan - Assessment Assessment: sepsis poss sepsis syndrome anemia pneumonia myocardiac ischemia hyponatremia arthritis hx dysphagia hx gt status hx copd hx sleep apnea - Plan Plan: ivantibiotics iv fluid cpm Nutritional Asmnt/Malnutr-PDOC - Dietary Evaluation Malnutrition Findings (Please click <Entered> for more info): Nutritional Asmnt/Malnutrition Start: 12/13/16 15: 20 Text: Status: Complete Freq: Document 12/13/16 15:21 GSUN (Rec: 12/13/16 15:43 [facility] Nutritional Asmnt/Malnutrition Patient General Information Nutritional Screening High Risk Screening Diagnosis ER report: [place], sepsis, PNA, dehydration, anemia, leykocytosis, weakness Pertinent Medical Hx/Surgical Hx ER report: HTN, DM, asthma/ COPD, dyslipidemia, PUD/GERD, arthritis Subjective Information 76 year old female from SNF. Pt followed program writer with eyes, did not provide any nutrition hx, non-verbal during visit. Observed tube feeding infusing as ordered. Confirmed tube feeding order and on/off time with GREGORIO Lozano RN stated pt tolerating well since adm. Pt appeared mobidly obese. Unable to obtain CBW due to bedscale imporperly calibrated. Current Diet Order/ Nutrition Support Diabetisource 65ml/hr x 20hrs, providing 1560kcal, 78g protein Pertinent Medications D5-0.9%ns, Novolog, Levemir, Culturelle, Protonix, Dilatin Pertinent Labs 12/12: glucose 151H, triglycerides 215H, BUN 59H POC glucose 169H, 186H Nutritional Hx/Data Height 1.55 m Height (Calculated Centimeters) 154.9 Current Weight (lbs) 100.244 kg Weight (Calculated Kilograms) 100.2 Weight (Calculated Grams) 464643.9 [place] Body Weight 105 Weight Status Morbidly Obese GI Symptoms Food Allergies No Usual diet at home [facility]: glucerna 1.2 at 60ml/hr x 20hrs Skin Integrity/Comment: [place] 13. Left and right buttocks reddened. Estimated Nutritional Goals BEE in Kcals: Adj wt of IBW Calories/Kcals/Kg AdjBW 131.5lb/59.8kg (to 211lb adm weight 12/12/16) Kcals Calculated 1794-2093kcal (30-35kcal/kg) Protein: Adj wt of IBW Protein Calculated 72-90g (1.2-1.5g/kg) Fluid: ml 1794-2093ml (1ml/kcal) Nutritional Problem 1. Problem Problem Increased kcal and prot needs related to Etiology hypermatbolic state aeb Signs/Symptoms: PNA and sepsis per ER report Malnutrition Related to Morbid Obesity Malnutrition related to morbid obesity BMI> or equal to 40 Query Text:(Any 1 Criteria met) Malnutrition related to morbid obesity Yes Intervention/Recommendation Comments 1. Recommend increasing Diabetisource to 75ml/hr x 20hrs, providing 1800kcal, 90g protein, 1500ml total volume. Increased kcal and prot needs due to hypermetabolic state - sepsis, PNA per ER report. Expected Outcomes/Goals Expected Outcomes/Goals 1. Pt to meet at least 100% of estimated nutritinoal needs on tube feeding with tolerance .
[2016-12-15] MEDS: INSULIN ASPART SLIDING SCALE 100 UNITS/ML UNIT SUBQ SCH ×4 (00:46→17:25)
[2016-12-15] MEDS: D5-0.9%NS 1,000 ML IV SCH ×2 (00:54→22:03)
[2016-12-15] MEDS: Albuterol/Ipratropium Neb 3 ML AERS HHN SCH ×6 (03:00→23:21)
[2016-12-15] MEDS: cefTRIAXone 1 GM in Sodium Chloride 0.9% 50 ML IV SCH (04:58)
[2016-12-15 06:37] LABS: % BASOPHILS 0.2 % (0.0-2.0); % EOSINOPHILS 1.5 % (0.0-5.0); % LYMPHOCYTES 14.5 % (20.0-50.0); % MONOCYTES 7.4 % (2.0-10.0); % NEUTROPHILS 76.4 % (40.0-80.0); EOSINOPHILE ABSOLUTE 0.2 Th/cmm (0.1-0.4); HEMATOCRIT 23.9 % (41.0-60); HEMOGLOBIN 8.1 gm/dL (12-16); LYMPHOCYTE ABSOLUTE 1.7 Th/cmm (1.5-3.0); MEAN CELL VOLUME 92.8 fl (81-100); MEAN CORPUSCULAR HEMOGLOBIN 31.4 pg (27.0-31.0); MEAN CORPUSCULAR HGB CONC 33.9 pg (28.0-36.0); MEAN PLATELET VOLUME 9.2 fl; MONOCYTE ABSOLUTE 0.9 Th/cmm (0.3-1.0); NEUTROPHILE ABSOLUTE 9.2 Th/cmm (1.8-8.0); RED BLOOD COUNT 2.57 Mil/cmm (3.80-5.20); RED CELL DISTRIBUTION WIDTH 15.6 % (11.5-20.0)
[2016-12-15 06:48] LABS: BUN - UREA NITROGEN 56 mg/dL (7-25); CALCIUM SERUM 7.1 mg/dL (8.6-10.3); CARBON DIOXIDE 28.9 mEq/L (21.0-31.0); CHLORIDE 104 mEq/L (98-107); CREATININE - SERUM 1.2 mg/dL (0.6-1.2); GLUCOSE 236 mg/dL (70-105); POTASSIUM SERUM 3.9 mEq/L (3.5-5.1); SODIUM SERUM 138 mEq/L (136-145)
[2016-12-15 07:05] LABS: PLATELET COUNT 231 Th/cmm (150-400)
[2016-12-15] MEDS: Insulin Detemir 100 units/mL 10mL Vial SUBQ SCH ×2 (09:50→21:56)
[2016-12-15] MEDS: Lactobacillus Rhamnosus 10 Billion CFU Capsule PO SCH (09:51)
[2016-12-15] MEDS: Levetiracetam 500 mg/5mL 5mL UDC GT SCH ×2 (09:55→21:51)
[2016-12-15] MEDS: Pantoprazole 40 mg/Packet GT SCH (09:55)
[2016-12-15] MEDS: Acetaminophen 160 MG/5 ML UDC GT PRN (18:15)
[2016-12-16] MEDS: INSULIN ASPART SLIDING SCALE 100 UNITS/ML UNIT SUBQ SCH ×4 (00:44→17:48)
[2016-12-16] MEDS: cefTRIAXone 1 GM in Sodium Chloride 0.9% 50 ML IV SCH (02:41)
[2016-12-16] MEDS: Albuterol/Ipratropium Neb 3 ML AERS HHN SCH ×5 (03:17→19:05)
--- NOTE | 2016-12-16 04:49 | Progress Notes ---
DATE: SUBJECTIVE: The patient was seen in her room, lying in the bed. The patient is a poor historian due to medical condition. The patient has been moaning, but denies any pain or discomfort. Otherwise, the patient appears to be in no acute distress. OBJECTIVE: VITAL SIGNS: Temperature 97.5, heart rate 78, blood pressure 179/52, respirations of 18, 97% on 2 liters via nasal cannula. HEENT: Head is atraumatic and normocephalic. Eyes: Bilateral conjunctivae are clear. Bilateral pupils are equally round and reactive. NECK: Supple. No JVD. CARDIOVASCULAR: S1 and S2 without murmur. PULMONARY: Mild inspiratory wheezing noted. GASTROINTESTINAL: Soft and nontender without guarding. Positive bowel sounds. MUSCULOSKELETAL: No clubbing, no cyanosis noted. ASSESSMENT: 1. Sepsis. 2. Anemia. 3. Pneumonia. 4. History of chronic obstructive pulmonary disease. 5. Dysphagia. 6. Dehydration. PLAN: We will continue IV antibiotics. We will follow up with ID doctor for antibiotic management. We will continue breathing treatment. Treatment plans were discussed with the patient's nurse. Treatment plans were discussed with Dr. Galvan. JOB# [id number]
--- NOTE | 2016-12-16 07:25 | General Progress Note ---
Subjective - Review of Systems Events since last encounter: patient in no acute distress comfortable Subjective: awake confused nad Objective - Results Result Diagrams: 12/15/16 06:13 12/15/16 06:13 Recent Labs: Laboratory Last Values WBC 12.0 Th/cmm (4.8-10.8) H 12/15/16 06:13 RBC 2.57 Mil/cmm (3.80-5.20) L 12/15/16 06:13 Hgb 8.1 gm/dL (12-16) L 12/15/16 06:13 Hct 23.9 % (41.0-60) L 12/15/16 06:13 MCV 92.8 fl (81-100) 12/15/16 06:13 MCH 31.4 pg (27.0-31.0) H 12/15/16 06:13 MCHC Differential 33.9 pg (28.0-36.0) 12/15/16 06:13 RDW 15.6 % (11.5-20.0) 12/15/16 06:13 Plt Count 231 Th/cmm (150-400) D 12/15/16 06:13 MPV 9.2 fl 12/15/16 06:13 Neutrophils % 76.4 % (40.0-80.0) 12/15/16 06:13 Band Neutrophils % 4 % (0-10) 12/14/16 18:03 Lymphocytes % 14.5 % (20.0-50.0) L 12/15/16 06:13 Monocytes % 7.4 % (2.0-10.0) 12/15/16 06:13 Eosinophils % 1.5 % (0.0-5.0) 12/15/16 06:13 Basophils % 0.2 % (0.0-2.0) 12/15/16 06:13 Neutrophils (Manual) 80 % (40-80) 12/14/16 18:03 Lymphocytes 13 % (20-50) L 12/14/16 18:03 Monocytes 3 % (2-10) 12/14/16 18:03 Eosinophils 1 % (0-5) 12/14/16 05:20 Platelet Estimate ADEQUATE (NORMAL) 12/14/16 18:03 PT 9.3 SECONDS (9.5-11.5) L 12/12/16 21:56 INR 0.90 (0.5-1.4) 12/12/16 21:56 PTT (Actin FS) 22.0 SECONDS (26.0-38.0) L 12/12/16 21:56 Sodium 138 mEq/L (136-145) 12/15/16 06:13 Potassium 3.9 mEq/L (3.5-5.1) 12/15/16 06:13 Chloride 104 mEq/L (98-107) 12/15/16 06:13 Carbon Dioxide 28.9 mEq/L (21.0-31.0) 12/15/16 06:13 Anion Gap 9.0 (7.0-16.0) 12/15/16 06:13 BUN 56 mg/dL (7-25) H 12/15/16 06:13 Creatinine 1.2 mg/dL (0.6-1.2) 12/15/16 06:13 Est GFR ( Amer) TNP 12/15/16 06:13 Est GFR (Non-Af Amer) TNP 12/15/16 06:13 BUN/Creatinine Ratio 46.7 12/15/16 06:13 Glucose 236 mg/dL (70-105) H 12/15/16 06:13 POC Glucose 201 MG/DL (70 - 105) H 12/16/16 06:35 Hemoglobin A1c % 7.3 % (4.0-6.0) H 12/14/16 05:20 Whole Bld Lactic Acid 1.82 mmol/L (0.60-1.99) 12/12/16 21:56 Calcium 7.1 mg/dL (8.6-10.3) L 12/15/16 06:13 Total Bilirubin 0.3 mg/dL (0.3-1.0) 12/12/16 21:36 AST 27 U/L (13-39) 12/12/16 21:36 ALT 37 U/L (7-52) 12/12/16 21:36 Alkaline Phosphatase 105 U/L (34-104) H 12/12/16 21:36 Creatine Kinase < 10 U/L (30-223) L 12/12/16 21:36 Troponin I 0.04 ng/mL (0.01-0.05) 12/12/16 21:56 B-Natriuretic Peptide 440.0 pg/mL (5.0-100.0) H 12/12/16 21:56 Total Protein 6.2 gm/dL (6.0-8.3) 12/12/16 21:36 Albumin 2.5 gm/dL (3.7-5.3) L 12/12/16 21:36 Globulin 3.7 gm/dL 12/12/16 21:36 Albumin/Globulin Ratio 0.7 (1.0-1.8) L 12/12/16 21:36 Triglycerides 215 mg/dL (<150) H 12/12/16 21:36 Cholesterol 145 mg/dL (<200) 12/12/16 21:36 LDL Cholesterol Direct 87 mg/dL (75-193) 12/12/16 21:36 HDL Cholesterol 36 mg/dL (23-92) 12/12/16 21:36 Urine Source MIDSTREAM 12/12/16 23:15 Urine Color YELLOW 12/12/16 23:15 Urine Clarity CLOUDY (CLEAR) H 12/12/16 23:15 Urine pH 6.5 (4.6 - 8.0) 12/12/16 23:15 Ur Specific [place] 1.010 (1.005-1.030) 12/12/16 23:15 Urine Protein 100 mg/dL (NEGATIVE) H 12/12/16 23:15 Urine Glucose (UA) NEGATIVE mg/dL (NEGATIVE) 12/12/16 23:15 Urine Ketones NEGATIVE mg/dL (NEGATIVE) 12/12/16 23:15 Urine Blood TRACE (NEGATIVE) 12/12/16 23:15 Urine Nitrate POSITIVE (NEGATIVE) H 12/12/16 23:15 Urine Bilirubin NEGATIVE (NEGATIVE) 12/12/16 23:15 Urine Urobilinogen 0.2 E.U./dL (0.2 - 1.0) 12/12/16 23:15 Ur Leukocyte Esterase LARGE (NEGATIVE) H 12/12/16 23:15 Urine RBC 2-5 /hpf (0-5) 12/12/16 23:15 Urine WBC >100 /hpf (0-5) H 12/12/16 23:15 Ur Epithelial Cells MODERATE /lpf (FEW) 12/12/16 23:15 Urine Bacteria MANY /hpf (NONE SEEN) 12/12/16 23:15 - Physical Exam Vitals and I&O: Vital Signs Temp 98.5 F 12/16/16 04:00 Pulse 72 12/16/16 06:52 Resp 16 12/16/16 06:52 BP 132/41 12/16/16 04:00 Pulse Ox 99 12/16/16 06:52 Intake & Output 12/15/16 12/16/16 12/16/16 18:59 06:59 18:59 Intake Total 560 1000 Output Total 1500 Balance -940 1000 Weight (lbs) 99.79 kg 117.934 kg Intake: Intake, IV Amount 1000 D5-0.9%Ns 1,000 ml @ 50 1000 mls/hr IV .Q20H [facility] Rx#: [id number] Tube Feeding 560 Output: Urine 1500 Other: # Bowel Movements 0 Active Medications: Current Medications Acetaminophen (Tylenol Children) 320 mg GT Q4HR PRN PRN Reason: TEMP >100F Stop: 02/11/17 01:25 Last Admin: 12/15/16 18:15 Dose: 320 mg Acetaminophen (Tylenol Children) 320 mg PO Q4HR PRN PRN Reason: Pain (Mild) Stop: 02/11/17 01:25 Last Admin: 12/14/16 17:47 Dose: 320 mg Albuterol/Ipratropium (Duoneb Neb) 3 ml HHN Q2HR PRN PRN Reason: Shortness of Breath or Wheeze Stop: 02/11/17 01:25 Albuterol/Ipratropium (Duoneb Neb) 3 ml HHN Q4HRT [facility] Stop: 02/11/17 02:59 Last Admin: 12/16/16 06:48 Dose: 3 ml Amlodipine Besylate (Norvasc) 5 mg GT DAILY [facility] Stop: 02/11/17 08:59 Last Admin: 12/15/16 09:52 Dose: 5 mg Carvedilol (Coreg) 12.5 mg GT Q12HR [facility] Stop: 02/11/17 08:59 Last Admin: 12/15/16 21:50 Dose: 12.5 mg Ceftriaxone Sodium 1 gm/ (Sodium Chloride) 50 mls @ 100 mls/hr IV Q24HR [facility] Stop: 02/11/17 02:59 Last Admin: 12/16/16 02:41 Dose: 100 mls/hr Dextrose/Sodium Chloride (D5-0.9%Ns) 1,000 mls @ 50 mls/hr IV .Q20H [facility] Stop: 02/12/17 21:44 Last Admin: 12/15/16 22:03 Dose: 50 mls/hr Insulin Aspart (Novolog Insulin Sliding Scale) 0 units SUBQ Q6HR [facility] PRN Reason: Protocol Stop: 02/11/17 05:59 Last Admin: 12/16/16 06:38 Dose: 5 units Insulin Detemir (Levemir Insulin) 10 units SUBQ Q12HR [facility] Stop: 02/11/17 08:59 Last Admin: 12/15/16 21:56 Dose: 10 units Lactobacillus Rhamnosus (Culturelle) 1 each PO DAILY [facility] Stop: 02/12/17 08:59 Last Admin: 12/15/16 09:51 Dose: 1 each Levetiracetam (Keppra) 1,000 mg GT Q12HR [facility] Stop: 02/11/17 08:59 Last Admin: 12/15/16 21:51 Dose: 1,000 mg Miscellaneous (Probiotic Screen) 1 ea MC PRN PRN PRN Reason: PROTOCOL Stop: 02/11/17 14:59 Pantoprazole Sodium (Protonix) 40 mg GT QAM [facility] Stop: 02/11/17 08:59 Last Admin: 12/15/16 09:55 Dose: 40 mg Phenytoin (Dilantin) 100 mg GT BID [facility] Stop: 02/11/17 08:59 Last Admin: 12/15/16 16:48 Dose: 100 mg General: Alert, Other (confused) HEENT: Atraumatic Cardiovascular: Regular rate Abdomen: Bowel sounds, Soft Extremities: Pulses Assessment/Plan - Assessment Assessment: sepsis poss sepsis syndrome anemia pneumonia myocardiac ischemia hyponatremia arthritis hx dysphagia hx gt status hx copd hx sleep apnea - Plan Plan: ivantibiotics iv fluid cpm Nutritional Asmnt/Malnutr-PDOC - Dietary Evaluation Malnutrition Findings (Please click <Entered> for more info): Nutritional Asmnt/Malnutrition Start: 12/13/16 15: 20 Text: Status: Complete Freq: Document 12/13/16 15:21 GSUN (Rec: 12/13/16 15:43 [email or web address]) Nutritional Asmnt/Malnutrition Patient General Information Nutritional Screening High Risk Screening Diagnosis ER report: [place], sepsis, PNA, dehydration, anemia, leykocytosis, weakness Pertinent Medical Hx/Surgical Hx ER report: HTN, DM, asthma/ COPD, dyslipidemia, PUD/GERD, arthritis Subjective Information 76 year old female from SNF. 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 Observed tube feeding infusing as ordered. Confirmed tube feeding order and on/off time with GREGORIO Lozano RN stated pt tolerating well since adm. Pt appeared mobidly obese. Unable to obtain CBW due to bedscale imporperly calibrated. Current Diet Order/ Nutrition Support Diabetisource 65ml/hr x 20hrs, providing 1560kcal, 78g protein Pertinent Medications D5-0.9%ns, Novolog, Levemir, Culturelle, Protonix, Dilatin Pertinent Labs 12/12: glucose 151H, triglycerides 215H, BUN 59H POC glucose 169H, 186H Nutritional Hx/Data Height 1.55 m Height (Calculated Centimeters) 154.9 Current Weight (lbs) 100.244 kg Weight (Calculated Kilograms) 100.2 Weight (Calculated Grams) 489913.9 [place] Body Weight 105 Weight Status Morbidly Obese GI Symptoms Food Allergies No Usual diet at home [facility] SNF: glucerna 1.2 at 60ml/hr x 20hrs Skin Integrity/Comment: [place] 13. Left and right buttocks reddened. Estimated Nutritional Goals BEE in Kcals: Adj wt of IBW Calories/Kcals/Kg AdjBW 131.5lb/59.8kg (to 211lb adm weight 12/12/) Kcals Calculated 1794-2093kcal (30-35kcal/kg) Protein: Adj wt of IBW Protein Calculated 72-90g (1.2-1.5g/kg) Fluid: ml 1794-2093ml (1ml/kcal) Nutritional Problem 1. Problem Problem Increased kcal and prot needs related to Etiology hypermatbolic state aeb Signs/Symptoms: PNA and sepsis per ER report Malnutrition Related to Morbid Obesity Malnutrition related to morbid obesity BMI> or equal to 40 Query Text:(Any 1 Criteria met) Malnutrition related to morbid obesity Yes Intervention/Recommendation Comments 1. Recommend increasing Diabetisource to 75ml/hr x 20hrs, providing 1800kcal, 90g protein, 1500ml total volume. Increased kcal and prot needs due to hypermetabolic state - sepsis, PNA per ER report. Expected Outcomes/Goals Expected Outcomes/Goals 1. Pt to meet at least 100% of estimated nutritinoal needs on tube feeding with tolerance .
--- NOTE | 2016-12-16 07:25 | General Progress Note ---
Subjective - Review of Systems Events since last encounter: patient in no acute distress comfortable Subjective: awake confused nad Objective - Results Result Diagrams: 12/15/16 06:13 12/15/16 06:13 Recent Labs: Laboratory Last Values WBC 12.0 Th/cmm (4.8-10.8) H 12/15/16 06:13 RBC 2.57 Mil/cmm (3.80-5.20) L 12/15/16 06:13 Hgb 8.1 gm/dL (12-16) L 12/15/16 06:13 Hct 23.9 % (41.0-60) L 12/15/16 06:13 MCV 92.8 fl (81-100) 12/15/16 06:13 MCH 31.4 pg (27.0-31.0) H 12/15/16 06:13 MCHC Differential 33.9 pg (28.0-36.0) 12/15/16 06:13 RDW 15.6 % (11.5-20.0) 12/15/16 06:13 Plt Count 231 Th/cmm (150-400) D 12/15/16 06:13 MPV 9.2 fl 12/15/16 06:13 Neutrophils % 76.4 % (40.0-80.0) 12/15/16 06:13 Band Neutrophils % 4 % (0-10) 12/14/16 18:03 Lymphocytes % 14.5 % (20.0-50.0) L 12/15/16 06:13 Monocytes % 7.4 % (2.0-10.0) 12/15/16 06:13 Eosinophils % 1.5 % (0.0-5.0) 12/15/16 06:13 Basophils % 0.2 % (0.0-2.0) 12/15/16 06:13 Neutrophils (Manual) 80 % (40-80) 12/14/16 18:03 Lymphocytes 13 % (20-50) L 12/14/16 18:03 Monocytes 3 % (2-10) 12/14/16 18:03 Eosinophils 1 % (0-5) 12/14/16 05:20 Platelet Estimate ADEQUATE (NORMAL) 12/14/16 18:03 PT 9.3 SECONDS (9.5-11.5) L 12/12/16 21:56 INR 0.90 (0.5-1.4) 12/12/16 21:56 PTT (Actin FS) 22.0 SECONDS (26.0-38.0) L 12/12/16 21:56 Sodium 138 mEq/L (136-145) 12/15/16 06:13 Potassium 3.9 mEq/L (3.5-5.1) 12/15/16 06:13 Chloride 104 mEq/L (98-107) 12/15/16 06:13 Carbon Dioxide 28.9 mEq/L (21.0-31.0) 12/15/16 06:13 Anion Gap 9.0 (7.0-16.0) 12/15/16 06:13 BUN 56 mg/dL (7-25) H 12/15/16 06:13 Creatinine 1.2 mg/dL (0.6-1.2) 12/15/16 06:13 Est GFR ( Amer) TNP 12/15/16 06:13 Est GFR (Non-Af Amer) TNP 12/15/16 06:13 BUN/Creatinine Ratio 46.7 12/15/16 06:13 Glucose 236 mg/dL (70-105) H 12/15/16 06:13 POC Glucose 201 MG/DL (70 - 105) H 12/16/16 06:35 Hemoglobin A1c % 7.3 % (4.0-6.0) H 12/14/16 05:20 Whole Bld Lactic Acid 1.82 mmol/L (0.60-1.99) 12/12/16 21:56 Calcium 7.1 mg/dL (8.6-10.3) L 12/15/16 06:13 Total Bilirubin 0.3 mg/dL (0.3-1.0) 12/12/16 21:36 AST 27 U/L (13-39) 12/12/16 21:36 ALT 37 U/L (7-52) 12/12/16 21:36 Alkaline Phosphatase 105 U/L (34-104) H 12/12/16 21:36 Creatine Kinase < 10 U/L (30-223) L 12/12/16 21:36 Troponin I 0.04 ng/mL (0.01-0.05) 12/12/16 21:56 B-Natriuretic Peptide 440.0 pg/mL (5.0-100.0) H 12/12/16 21:56 Total Protein 6.2 gm/dL (6.0-8.3) 12/12/16 21:36 Albumin 2.5 gm/dL (3.7-5.3) L 12/12/16 21:36 Globulin 3.7 gm/dL 12/12/16 21:36 Albumin/Globulin Ratio 0.7 (1.0-1.8) L 12/12/16 21:36 Triglycerides 215 mg/dL (<150) H 12/12/16 21:36 Cholesterol 145 mg/dL (<200) 12/12/16 21:36 LDL Cholesterol Direct 87 mg/dL (75-193) 12/12/16 21:36 HDL Cholesterol 36 mg/dL (23-92) 12/12/16 21:36 Urine Source MIDSTREAM 12/12/16 23:15 Urine Color YELLOW 12/12/16 23:15 Urine Clarity CLOUDY (CLEAR) H 12/12/16 23:15 Urine pH 6.5 (4.6 - 8.0) 12/12/16 23:[address] 1.010 (1.005-1.030) 12/12/16 23:15 Urine Protein 100 mg/dL (NEGATIVE) H 12/12/16 23:15 Urine Glucose (UA) NEGATIVE mg/dL (NEGATIVE) 12/12/16 23:15 Urine Ketones NEGATIVE mg/dL (NEGATIVE) 12/12/16 23:15 Urine Blood TRACE (NEGATIVE) 12/12/16 23:15 Urine Nitrate POSITIVE (NEGATIVE) H 12/12/16 23:15 Urine Bilirubin NEGATIVE (NEGATIVE) 12/12/16 23:15 Urine Urobilinogen 0.2 E.U./dL (0.2 - 1.0) 12/12/16 23:15 Ur Leukocyte Esterase LARGE (NEGATIVE) H 12/12/16 23:15 Urine RBC 2-5 /hpf (0-5) 12/12/16 23:15 Urine WBC >100 /hpf (0-5) H 12/12/16 23:15 Ur Epithelial Cells MODERATE /lpf (FEW) 12/12/16 23:15 Urine Bacteria MANY /hpf (NONE SEEN) 12/12/16 23:15 - Physical Exam Vitals and I&O: Vital Signs Temp 98.5 F 12/16/16 04:00 Pulse 72 12/16/16 06:52 Resp 16 12/16/16 06:52 BP 132/41 12/16/16 04:00 Pulse Ox 99 12/16/16 06:52 Intake & Output 12/15/16 12/16/16 12/16/16 18:59 06:59 18:59 Intake Total 560 1000 Output Total 1500 Balance -940 1000 Weight (lbs) 99.79 kg 117.934 kg Intake: Intake, IV Amount 1000 D5-0.9%Ns 1,000 ml @ 50 1000 mls/hr IV .Q20H [facility] Rx#: [id number] Tube Feeding 560 Output: Urine 1500 Other: # Bowel Movements 0 Active Medications: Current Medications Acetaminophen (Tylenol Children) 320 mg GT Q4HR PRN PRN Reason: TEMP >100F Stop: 02/11/17 01:25 Last Admin: 12/15/16 18:15 Dose: 320 mg Acetaminophen (Tylenol Children) 320 mg PO Q4HR PRN PRN Reason: Pain (Mild) Stop: 02/11/17 01:25 Last Admin: 12/14/16 17:47 Dose: 320 mg Albuterol/Ipratropium (Duoneb Neb) 3 ml HHN Q2HR PRN PRN Reason: Shortness of Breath or Wheeze Stop: 02/11/17 01:25 Albuterol/Ipratropium (Duoneb Neb) 3 ml HHN Q4HRT [facility] Stop: 02/11/17 02:59 Last Admin: 12/16/16 06:48 Dose: 3 ml Amlodipine Besylate (Norvasc) 5 mg GT DAILY [facility] Stop: 02/11/17 08:59 Last Admin: 12/15/16 09:52 Dose: 5 mg Carvedilol (Coreg) 12.5 mg GT Q12HR [facility] Stop: 02/11/17 08:59 Last Admin: 12/15/16 21:50 Dose: 12.5 mg Ceftriaxone Sodium 1 gm/ (Sodium Chloride) 50 mls @ 100 mls/hr IV Q24HR [facility] Stop: 02/11/17 02:59 Last Admin: 12/16/16 02:41 Dose: 100 mls/hr Dextrose/Sodium Chloride (D5-0.9%Ns) 1,000 mls @ 50 mls/hr IV .Q20H [facility] Stop: 02/12/17 21:44 Last Admin: 12/15/16 22:03 Dose: 50 mls/hr Insulin Aspart (Novolog Insulin Sliding Scale) 0 units SUBQ Q6HR [facility] PRN Reason: Protocol Stop: 02/11/17 05:59 Last Admin: 12/16/16 06:38 Dose: 5 units Insulin Detemir (Levemir Insulin) 10 units SUBQ Q12HR [facility] Stop: 02/11/17 08:59 Last Admin: 12/15/16 21:56 Dose: 10 units Lactobacillus Rhamnosus (Culturelle) 1 each PO DAILY [facility] Stop: 02/12/17 08:59 Last Admin: 12/15/16 09:51 Dose: 1 each Levetiracetam (Keppra) 1,000 mg GT Q12HR [facility] Stop: 02/11/17 08:59 Last Admin: 12/15/16 21:51 Dose: 1,000 mg Miscellaneous (Probiotic Screen) 1 ea MC PRN PRN PRN Reason: PROTOCOL Stop: 02/11/17 14:59 Pantoprazole Sodium (Protonix) 40 mg GT QAM [facility] Stop: 02/11/17 08:59 Last Admin: 12/15/16 09:55 Dose: 40 mg Phenytoin (Dilantin) 100 mg GT BID [facility] Stop: 02/11/17 08:59 Last Admin: 12/15/16 16:48 Dose: 100 mg General: Alert, Other (confused) HEENT: Atraumatic Cardiovascular: Regular rate Abdomen: Bowel sounds, Soft Extremities: Pulses Assessment/Plan - Assessment Assessment: sepsis poss sepsis syndrome anemia pneumonia myocardiac ischemia hyponatremia arthritis hx dysphagia hx gt status hx copd hx sleep apnea - Plan Plan: ivantibiotics iv fluid cpm Nutritional Asmnt/Malnutr-PDOC - Dietary Evaluation Malnutrition Findings (Please click <Entered> for more info): Nutritional Asmnt/Malnutrition Start: 12/13/16 15: 20 Text: Status: Complete Freq: Document 12/13/16 15:21 GSUN (Rec: 12/13/16 15:43 [email or web address] [email or web address]) Nutritional Asmnt/Malnutrition Patient General Information Nutritional Screening High Risk Screening Diagnosis ER report: [place], sepsis, PNA, dehydration, anemia, leykocytosis, weakness Pertinent Medical Hx/Surgical Hx ER report: HTN, DM, asthma/ COPD, dyslipidemia, PUD/GERD, arthritis Subjective Information 76 year old female from SNF. 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 Observed tube feeding infusing as ordered. Confirmed tube feeding order and on/off time with GREGORIO Lozano RN stated pt tolerating well since adm. Pt appeared mobidly obese. Unable to obtain CBW due to bedscale imporperly calibrated. Current Diet Order/ Nutrition Support Diabetisource 65ml/hr x 20hrs, providing 1560kcal, 78g protein Pertinent Medications D5-0.9%ns, Novolog, Levemir, Culturelle, Protonix, Dilatin Pertinent Labs 12/12: glucose 151H, triglycerides 215H, BUN 59H POC glucose 169H, 186H Nutritional Hx/Data Height 1.55 m Height (Calculated Centimeters) 154.9 Current Weight (lbs) 100.244 kg Weight (Calculated Kilograms) 100.2 Weight (Calculated Grams) 243748.9 [place] Body Weight 105 Weight Status Morbidly Obese GI Symptoms Food Allergies No Usual diet at home [facility] SNF: glucerna 1.2 at 60ml/hr x 20hrs Skin Integrity/Comment: [place] 13. Left and right buttocks reddened. Estimated Nutritional Goals BEE in Kcals: Adj wt of IBW Calories/Kcals/Kg AdjBW 131.5lb/59.8kg (to 211lb adm weight 12/12/) Kcals Calculated 1794-2093kcal (30-35kcal/kg) Protein: Adj wt of IBW Protein Calculated 72-90g (1.2-1.5g/kg) Fluid: ml 1794-2093ml (1ml/kcal) Nutritional Problem 1. Problem Problem Increased kcal and prot needs related to Etiology hypermatbolic state aeb Signs/Symptoms: PNA and sepsis per ER report Malnutrition Related to Morbid Obesity Malnutrition related to morbid obesity BMI> or equal to 40 Query Text:(Any 1 Criteria met) Malnutrition related to morbid obesity Yes Intervention/Recommendation Comments 1. Recommend increasing Diabetisource to 75ml/hr x 20hrs, providing 1800kcal, 90g protein, 1500ml total volume. Increased kcal and prot needs due to hypermetabolic state - sepsis, PNA per ER report. Expected Outcomes/Goals Expected Outcomes/Goals 1. Pt to meet at least 100% of estimated nutritinoal needs on tube feeding with tolerance .
--- NOTE | 2016-12-16 07:25 | General Progress Note ---
Subjective - Review of Systems Events since last encounter: patient in no acute distress comfortable Subjective: awake confused nad Objective - Results Result Diagrams: 12/15/16 06:13 12/15/16 06:13 Recent Labs: Laboratory Last Values WBC 12.0 Th/cmm (4.8-10.8) H 12/15/16 06:13 RBC 2.57 Mil/cmm (3.80-5.20) L 12/15/16 06:13 Hgb 8.1 gm/dL (12-16) L 12/15/16 06:13 Hct 23.9 % (41.0-60) L 12/15/16 06:13 MCV 92.8 fl (81-100) 12/15/16 06:13 MCH 31.4 pg (27.0-31.0) H 12/15/16 06:13 MCHC Differential 33.9 pg (28.0-36.0) 12/15/16 06:13 RDW 15.6 % (11.5-20.0) 12/15/16 06:13 Plt Count 231 Th/cmm (150-400) D 12/15/16 06:13 MPV 9.2 fl 12/15/16 06:13 Neutrophils % 76.4 % (40.0-80.0) 12/15/16 06:13 Band Neutrophils % 4 % (0-10) 12/14/16 18:03 Lymphocytes % 14.5 % (20.0-50.0) L 12/15/16 06:13 Monocytes % 7.4 % (2.0-10.0) 12/15/16 06:13 Eosinophils % 1.5 % (0.0-5.0) 12/15/16 06:13 Basophils % 0.2 % (0.0-2.0) 12/15/16 06:13 Neutrophils (Manual) 80 % (40-80) 12/14/16 18:03 Lymphocytes 13 % (20-50) L 12/14/16 18:03 Monocytes 3 % (2-10) 12/14/16 18:03 Eosinophils 1 % (0-5) 12/14/16 05:20 Platelet Estimate ADEQUATE (NORMAL) 12/14/16 18:03 PT 9.3 SECONDS (9.5-11.5) L 12/12/16 21:56 INR 0.90 (0.5-1.4) 12/12/16 21:56 PTT (Actin FS) 22.0 SECONDS (26.0-38.0) L 12/12/16 21:56 Sodium 138 mEq/L (136-145) 12/15/16 06:13 Potassium 3.9 mEq/L (3.5-5.1) 12/15/16 06:13 Chloride 104 mEq/L (98-107) 12/15/16 06:13 Carbon Dioxide 28.9 mEq/L (21.0-31.0) 12/15/16 06:13 Anion Gap 9.0 (7.0-16.0) 12/15/16 06:13 BUN 56 mg/dL (7-25) H 12/15/16 06:13 Creatinine 1.2 mg/dL (0.6-1.2) 12/15/16 06:13 Est GFR ( Amer) TNP 12/15/16 06:13 Est GFR (Non-Af Amer) TNP 12/15/16 06:13 BUN/Creatinine Ratio 46.7 12/15/16 06:13 Glucose 236 mg/dL (70-105) H 12/15/16 06:13 POC Glucose 201 MG/DL (70 - 105) H 12/16/16 06:35 Hemoglobin A1c % 7.3 % (4.0-6.0) H 12/14/16 05:20 Whole Bld Lactic Acid 1.82 mmol/L (0.60-1.99) 12/12/16 21:56 Calcium 7.1 mg/dL (8.6-10.3) L 12/15/16 06:13 Total Bilirubin 0.3 mg/dL (0.3-1.0) 12/12/16 21:36 AST 27 U/L (13-39) 12/12/16 21:36 ALT 37 U/L (7-52) 12/12/16 21:36 Alkaline Phosphatase 105 U/L (34-104) H 12/12/16 21:36 Creatine Kinase < 10 U/L (30-223) L 12/12/16 21:36 Troponin I 0.04 ng/mL (0.01-0.05) 12/12/16 21:56 B-Natriuretic Peptide 440.0 pg/mL (5.0-100.0) H 12/12/16 21:56 Total Protein 6.2 gm/dL (6.0-8.3) 12/12/16 21:36 Albumin 2.5 gm/dL (3.7-5.3) L 12/12/16 21:36 Globulin 3.7 gm/dL 12/12/16 21:36 Albumin/Globulin Ratio 0.7 (1.0-1.8) L 12/12/16 21:36 Triglycerides 215 mg/dL (<150) H 12/12/16 21:36 Cholesterol 145 mg/dL (<200) 12/12/16 21:36 LDL Cholesterol Direct 87 mg/dL (75-193) 12/12/16 21:36 HDL Cholesterol 36 mg/dL (23-92) 12/12/16 21:36 Urine Source MIDSTREAM 12/12/16 23:15 Urine Color YELLOW 12/12/16 23:15 Urine Clarity CLOUDY (CLEAR) H 12/12/16 23:15 Urine pH 6.5 (4.6 - 8.0) 12/12/16 23:15 Ur Specific [place] 1.010 (1.005-1.030) 12/12/16 23:15 Urine Protein 100 mg/dL (NEGATIVE) H 12/12/16 23:15 Urine Glucose (UA) NEGATIVE mg/dL (NEGATIVE) 12/12/16 23:15 Urine Ketones NEGATIVE mg/dL (NEGATIVE) 12/12/16 23:15 Urine Blood TRACE (NEGATIVE) 12/12/16 23:15 Urine Nitrate POSITIVE (NEGATIVE) H 12/12/16 23:15 Urine Bilirubin NEGATIVE (NEGATIVE) 12/12/16 23:15 Urine Urobilinogen 0.2 E.U./dL (0.2 - 1.0) 12/12/16 23:15 Ur Leukocyte Esterase LARGE (NEGATIVE) H 12/12/16 23:15 Urine RBC 2-5 /hpf (0-5) 12/12/16 23:15 Urine WBC >100 /hpf (0-5) H 12/12/16 23:15 Ur Epithelial Cells MODERATE /lpf (FEW) 12/12/16 23:15 Urine Bacteria MANY /hpf (NONE SEEN) 12/12/16 23:15 - Physical Exam Vitals and I&O: Vital Signs Temp 98.5 F 12/16/16 04:00 Pulse 72 12/16/16 06:52 Resp 16 12/16/16 06:52 BP 132/41 12/16/16 04:00 Pulse Ox 99 12/16/16 06:52 Intake & Output 12/15/16 12/16/16 12/16/16 18:59 06:59 18:59 Intake Total 560 1000 Output Total 1500 Balance -940 1000 Weight (lbs) 99.79 kg 117.934 kg Intake: Intake, IV Amount 1000 D5-0.9%Ns 1,000 ml @ 50 1000 mls/hr IV .Q20H [facility] Rx#: [id number] Tube Feeding 560 Output: Urine 1500 Other: # Bowel Movements 0 Active Medications: Current Medications Acetaminophen (Tylenol Children) 320 mg GT Q4HR PRN PRN Reason: TEMP >100F Stop: 02/11/17 01:25 Last Admin: 12/15/16 18:15 Dose: 320 mg Acetaminophen (Tylenol Children) 320 mg PO Q4HR PRN PRN Reason: Pain (Mild) Stop: 02/11/17 01:25 Last Admin: 12/14/16 17:47 Dose: 320 mg Albuterol/Ipratropium (Duoneb Neb) 3 ml HHN Q2HR PRN PRN Reason: Shortness of Breath or Wheeze Stop: 02/11/17 01:25 Albuterol/Ipratropium (Duoneb Neb) 3 ml HHN Q4HRT [facility] Stop: 02/11/17 02:59 Last Admin: 12/16/16 06:48 Dose: 3 ml Amlodipine Besylate (Norvasc) 5 mg GT DAILY [facility] Stop: 02/11/17 08:59 Last Admin: 12/15/16 09:52 Dose: 5 mg Carvedilol (Coreg) 12.5 mg GT Q12HR [facility] Stop: 02/11/17 08:59 Last Admin: 12/15/16 21:50 Dose: 12.5 mg Ceftriaxone Sodium 1 gm/ (Sodium Chloride) 50 mls @ 100 mls/hr IV Q24HR [facility] Stop: 02/11/17 02:59 Last Admin: 12/16/16 02:41 Dose: 100 mls/hr Dextrose/Sodium Chloride (D5-0.9%Ns) 1,000 mls @ 50 mls/hr IV .Q20H [facility] Stop: 02/12/17 21:44 Last Admin: 12/15/16 22:03 Dose: 50 mls/hr Insulin Aspart (Novolog Insulin Sliding Scale) 0 units SUBQ Q6HR [facility] PRN Reason: Protocol Stop: 02/11/17 05:59 Last Admin: 12/16/16 06:38 Dose: 5 units Insulin Detemir (Levemir Insulin) 10 units SUBQ Q12HR [facility] Stop: 02/11/17 08:59 Last Admin: 12/15/16 21:56 Dose: 10 units Lactobacillus Rhamnosus (Culturelle) 1 each PO DAILY [facility] Stop: 02/12/17 08:59 Last Admin: 12/15/16 09:51 Dose: 1 each Levetiracetam (Keppra) 1,000 mg GT Q12HR [facility] Stop: 02/11/17 08:59 Last Admin: 12/15/16 21:51 Dose: 1,000 mg Miscellaneous (Probiotic Screen) 1 ea MC PRN PRN PRN Reason: PROTOCOL Stop: 02/11/17 14:59 Pantoprazole Sodium (Protonix) 40 mg GT QAM [facility] Stop: 02/11/17 08:59 Last Admin: 12/15/16 09:55 Dose: 40 mg Phenytoin (Dilantin) 100 mg GT BID [facility] Stop: 02/11/17 08:59 Last Admin: 12/15/16 16:48 Dose: 100 mg General: Alert, Other (confused) HEENT: Atraumatic Cardiovascular: Regular rate Abdomen: Bowel sounds, Soft Extremities: Pulses Assessment/Plan - Assessment Assessment: sepsis poss sepsis syndrome anemia pneumonia myocardiac ischemia hyponatremia arthritis hx dysphagia hx gt status hx copd hx sleep apnea - Plan Plan: ivantibiotics iv fluid cpm Nutritional Asmnt/Malnutr-PDOC - Dietary Evaluation Malnutrition Findings (Please click <Entered> for more info): Nutritional Asmnt/Malnutrition Start: 12/13/16 15: 20 Text: Status: Complete Freq: Document 12/13/16 15:21 GSUN (Rec: 12/13/16 15:43 [email or web address] [email or web address]) Nutritional Asmnt/Malnutrition Patient General Information Nutritional Screening High Risk Screening Diagnosis ER report: ME, sepsis, PNA, dehydration, anemia, leykocytosis, weakness Pertinent Medical Hx/Surgical Hx ER report: HTN, DM, asthma/ COPD, dyslipidemia, PUD/GERD, arthritis Subjective Information 76 year old female from SNF. 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 Observed tube feeding infusing as ordered. Confirmed tube feeding order and on/off time with GREGORIO Lozano RN stated pt tolerating well since adm. Pt appeared mobidly obese. Unable to obtain CBW due to bedscale imporperly calibrated. Current Diet Order/ Nutrition Support Diabetisource 65ml/hr x 20hrs, providing 1560kcal, 78g protein Pertinent Medications D5-0.9%ns, Novolog, Levemir, Culturelle, Protonix, Dilatin Pertinent Labs 12/12: glucose 151H, triglycerides 215H, BUN 59H POC glucose 169H, 186H Nutritional Hx/Data Height 1.55 m Height (Calculated Centimeters) 154.9 Current Weight (lbs) 100.244 kg Weight (Calculated Kilograms) 100.2 Weight (Calculated Grams) 212027.9 Barry Body Weight 105 Weight Status Morbidly Obese GI Symptoms Food Allergies No Usual diet at home [facility] SNF: glucerna 1.2 at 60ml/hr x 20hrs Skin Integrity/Comment: [place] 13. Left and right buttocks reddened. Estimated Nutritional Goals BEE in Kcals: Adj wt of IBW Calories/Kcals/Kg AdjBW 131.5lb/59.8kg (to 211lb adm weight 12/12/) Kcals Calculated 1794-2093kcal (30-35kcal/kg) Protein: Adj wt of IBW Protein Calculated 72-90g (1.2-1.5g/kg) Fluid: ml 1794-2093ml (1ml/kcal) Nutritional Problem 1. Problem Problem Increased kcal and prot needs related to Etiology hypermatbolic state aeb Signs/Symptoms: PNA and sepsis per ER report Malnutrition Related to Morbid Obesity Malnutrition related to morbid obesity BMI> or equal to 40 Query Text:(Any 1 Criteria met) Malnutrition related to morbid obesity Yes Intervention/Recommendation Comments 1. Recommend increasing Diabetisource to 75ml/hr x 20hrs, providing 1800kcal, 90g protein, 1500ml total volume. Increased kcal and prot needs due to hypermetabolic state - sepsis, PNA per ER report. Expected Outcomes/Goals Expected Outcomes/Goals 1. Pt to meet at least 100% of estimated nutritinoal needs on tube feeding with tolerance .
[2016-12-16 09:00] LABS: % BASOPHILS 0.5 % (0.0-2.0); % EOSINOPHILS 1.8 % (0.0-5.0); % LYMPHOCYTES 16.7 % (20.0-50.0); % MONOCYTES 7.8 % (2.0-10.0); % NEUTROPHILS 73.2 % (40.0-80.0); BASOPHILE ABSOLUTE 0.1 Th/cumm (0-0.2); EOSINOPHILE ABSOLUTE 0.2 Th/cmm (0.1-0.4); HEMATOCRIT 22.6 % (41.0-60); LYMPHOCYTE ABSOLUTE 1.9 Th/cmm (1.5-3.0); MEAN CELL VOLUME 93.8 fl (81-100); MEAN PLATELET VOLUME 8.7 fl; MONOCYTE ABSOLUTE 0.9 Th/cmm (0.3-1.0); NEUTROPHILE ABSOLUTE 8.5 Th/cmm (1.8-8.0); PLATELET COUNT 201 Th/cmm (150-400); RED BLOOD COUNT 2.41 Mil/cmm (3.80-5.20); RED CELL DISTRIBUTION WIDTH 15.5 % (11.5-20.0); WHITE BLOOD COUNT 11.6 Th/cmm (4.8-10.8)
[2016-12-16 09:15] LABS: ALB/GLOB RATIO 0.6 (1.0-1.8); ALKALINE PHOSPHATASE 103 U/L (34-104); BILIRUBIN,TOTAL 0.2 mg/dL (0.3-1.0); BUN - UREA NITROGEN 52 mg/dL (7-25); CARBON DIOXIDE 28.6 mEq/L (21.0-31.0); CHLORIDE 108 mEq/L (98-107); CREATININE - SERUM 0.9 mg/dL (0.6-1.2); GLUCOSE 179 mg/dL (70-105); POTASSIUM SERUM 3.6 mEq/L (3.5-5.1); SGOT 15 U/L (13-39); SGPT/ALT 23 U/L (7-52); SODIUM SERUM 141 mEq/L (136-145); TOTAL PROTEIN,SERUM 5.2 gm/dL (6.0-8.3)
[2016-12-16 09:31] LABS: HEMOGLOBIN 7.5 gm/dL (12-16)
[2016-12-16] MEDS: Pantoprazole 40 mg/Packet GT SCH (09:40)
[2016-12-16] MEDS: Acetaminophen 160 MG/5 ML UDC GT PRN (09:40)
[2016-12-16] MEDS: Lactobacillus Rhamnosus 10 Billion CFU Capsule PO SCH (09:41)
[2016-12-16] MEDS: Levetiracetam 500 mg/5mL 5mL UDC GT SCH (09:42)
[2016-12-16] MEDS: Insulin Detemir 100 units/mL 10mL Vial SUBQ SCH ×2 (09:42→21:40)
[2016-12-16] MEDS ORDERED: Magnesium Hydroxide (MOM) 30 mL UDC PO PRN (14:08)
[2016-12-16] MEDS: Morphine Sulfate 2 mg/mL 1mL Syr IVP PRN ×2 (17:47→23:02)
[2016-12-17] MEDS: Albuterol/Ipratropium Neb 3 ML AERS HHN SCH ×7 (00:13→22:53)
[2016-12-17] MEDS: INSULIN ASPART SLIDING SCALE 100 UNITS/ML UNIT SUBQ SCH ×4 (00:25→18:09)
[2016-12-17 06:21] LABS: % BASOPHILS 0.2 % (0.0-2.0); % EOSINOPHILS 2.4 % (0.0-5.0); % LYMPHOCYTES 16.1 % (20.0-50.0); % MONOCYTES 9.2 % (2.0-10.0); % NEUTROPHILS 72.1 % (40.0-80.0); EOSINOPHILE ABSOLUTE 0.3 Th/cmm (0.1-0.4); HEMOGLOBIN 8.6 gm/dL (12-16); LYMPHOCYTE ABSOLUTE 1.9 Th/cmm (1.5-3.0); MEAN CELL VOLUME 92.4 fl (81-100); MEAN CORPUSCULAR HEMOGLOBIN 30.9 pg (27.0-31.0); MEAN CORPUSCULAR HGB CONC 33.5 pg (28.0-36.0); MEAN PLATELET VOLUME 9.4 fl; MONOCYTE ABSOLUTE 1.1 Th/cmm (0.3-1.0); NEUTROPHILE ABSOLUTE 8.6 Th/cmm (1.8-8.0); PLATELET COUNT 197 Th/cmm (150-400); WHITE BLOOD COUNT 11.9 Th/cmm (4.8-10.8)
[2016-12-17 06:30] LABS: HEMATOCRIT 25.8 % (41.0-60)
[2016-12-17 06:39] LABS: ALB/GLOB RATIO 0.7 (1.0-1.8); ALKALINE PHOSPHATASE 66 U/L (34-104); ANION GAP 5.7 (7.0-16.0); BILIRUBIN,TOTAL 0.2 mg/dL (0.3-1.0); BUN - UREA NITROGEN 47 mg/dL (7-25); CALCIUM SERUM 7.2 mg/dL (8.6-10.3); CARBON DIOXIDE 30.1 mEq/L (21.0-31.0); CHLORIDE 109 mEq/L (98-107); CREATININE - SERUM 0.9 mg/dL (0.6-1.2); GLUCOSE 148 mg/dL (70-105); MAGNESIUM 2.1 mg/dL (1.9-2.7); POTASSIUM SERUM 3.8 mEq/L (3.5-5.1); SGOT 14 U/L (13-39); SGPT/ALT 20 U/L (7-52); SODIUM SERUM 141 mEq/L (136-145); TOTAL PROTEIN,SERUM 5.1 gm/dL (6.0-8.3)
[2016-12-17] MEDS: Pantoprazole 40 mg/Packet GT SCH (09:44)
[2016-12-17] MEDS: Lactobacillus Rhamnosus 10 Billion CFU Capsule PO SCH (09:44)
[2016-12-17] MEDS: Levetiracetam 500 mg/5mL 5mL UDC GT SCH ×2 (09:45→21:03)
[2016-12-17] MEDS: Insulin Detemir 100 units/mL 10mL Vial SUBQ SCH ×2 (09:56→21:49)
--- NOTE | 2016-12-17 11:13 | Consultation ---
Consult Note - Consult Note Service Date: 12/17/16 Referring Physician: Keo Galvan Consult Note: PHYSICIAN Consultation Note: Date of Admission: 12/12/16 Purpose of Consultation: UTI Chief Complaint: Patient ELYSIA ALSTON was admitted to [facility] with UTI, SEPSIS. History of Present Illness: 76 year old female admitted on for generalized weakness with poor appetite. On initial evaluation, her temperature was 98.1 degree F and WBC Count was 12,400. sepsis w/u was performed and diagnosed UTI, she had been receiving rocephin IV. Her urine culture grew GNR. so, rocephin was changed to zosyn. ID consult was called for antibiotic management to discharge the patient to SNF. Dw with discharge planning and Final urine culture report grew Providencia stuartii. Past Medical History: HTN, DM, Asthma/COPD, Dyslipidemia, PUD/GERD, Arthritis. Diagnoses SEPSIS, UNSPECIFIED ORGANISM (12/12/16) ANEMIA, UNSPECIFIED (12/12/16) TYPE 2 DIABETES MELLITUS WITHOUT COMPLICATIONS (12/12/16) HYPERLIPIDEMIA, UNSPECIFIED (12/12/16) HYPO-OSMOLALITY AND HYPONATREMIA (12/12/16) SLEEP APNEA, UNSPECIFIED (12/12/16) PNEUMONIA, UNSPECIFIED ORGANISM (12/12/16) CHRONIC OBSTRUCTIVE PULMONARY DISEASE, UNSPECIFIED (12/12/16) UNSPECIFIED OSTEOARTHRITIS, UNSPECIFIED SITE (12/12/16) GASTROSTOMY STATUS (12/12/16) Allergies Allergy/AdvReac Type Severity Reaction Status Date / Time No Known Allergies Allergy Verified 12/12/16 21:19 Vital Signs Temp 97.8 F 12/17/16 07:35 Pulse 73 12/17/16 09:46 Resp 19 12/17/16 07:35 BP 146/56 12/17/16 09:46 Pulse Ox 97 12/17/16 07:35 Intake & Output 12/16/16 12/17/16 12/17/16 18:59 06:59 18:59 Intake Total 750 Output Total 950 Balance -200 Weight (lbs) 117.934 kg 110.268 kg 110.268 kg Intake: Tube Feeding 420 Blood Product 250 Other 80 Output: Urine 950 Other: # Bowel Movements 0 Laboratory Results - last 24 hr 12/16/16 12/16/16 12/16/16 11:34 11:37 16:48 WBC RBC Hgb Hct MCV MCH MCHC Differential RDW Plt Count MPV Neutrophils % Lymphocytes % Monocytes % Eosinophils % Basophils % Sodium Potassium Chloride Carbon Dioxide Anion Gap BUN Creatinine Est GFR ( Amer) Est GFR (Non-Af Amer) BUN/Creatinine Ratio Glucose POC Glucose 140 H 148 H Calcium Magnesium Total Bilirubin AST ALT Alkaline Phosphatase Total Protein Albumin Globulin Albumin/Globulin Ratio Blood Type O POSITIVE Antibody Screen NEGATIVE Crossmatch See Detail 12/16/16 12/17/16 12/17/16 23:47 05:15 05:15 WBC 11.9 H RBC 2.80 L Hgb 8.6 L Hct 25.8 L D MCV 92.4 MCH 30.9 MCHC Differential 33.5 RDW 16.0 Plt Count 197 MPV 9.4 Neutrophils % 72.1 Lymphocytes % 16.1 L Monocytes % 9.2 Eosinophils % 2.4 Basophils % 0.2 Sodium 141 Potassium 3.8 Chloride 109 H Carbon Dioxide 30.1 Anion Gap 5.7 L BUN 47 H Creatinine 0.9 Est GFR ( Amer) TNP Est GFR (Non-Af Amer) TNP BUN/Creatinine Ratio 52.2 Glucose 148 H POC Glucose 155 H Calcium 7.2 L Magnesium 2.1 Total Bilirubin 0.2 L AST 14 ALT 20 Alkaline Phosphatase 66 Total Protein 5.1 L Albumin 2.0 L Globulin 3.1 Albumin/Globulin Ratio 0.7 L Blood Type Antibody Screen Crossmatch 12/17/16 05:28 WBC RBC Hgb Hct MCV MCH MCHC Differential RDW Plt Count MPV Neutrophils % Lymphocytes % Monocytes % Eosinophils % Basophils % Sodium Potassium Chloride Carbon Dioxide Anion Gap BUN Creatinine Est GFR ( Amer) Est GFR (Non-Af Amer) BUN/Creatinine Ratio Glucose POC Glucose 148 H Calcium Magnesium Total Bilirubin AST ALT Alkaline Phosphatase Total Protein Albumin Globulin Albumin/Globulin Ratio Blood Type Antibody Screen Crossmatch Home Medication Medication Instructions Recorded Type Acetaminophen [Tylenol Children] 10 ml GT Q4HR PRN 12/12/16 History Acetaminophen [Tylenol Children] 10 ml PO Q4HR PRN 12/12/16 History Amlodipine Besylate 5 mg GT DAILY 12/12/16 History Carvedilol 12.5 mg GT Q12HR 12/12/16 History Insulin Aspart Sliding Scale 1 units SUBQ Q6HR 12/12/16 History [NovoLOG INSULIN SLIDING SCALE] Insulin Glargine, Recombinan 10 unit SQ Q12HR 12/12/16 History [Lantus] Ipratropium/Albuterol Sulfate 3 ml IH Q2HR PRN 12/12/16 History [Iprat-Albut 0.5-3(2.5) mg/3 ml] Ipratropium/Albuterol Sulfate 3 ml IH Q4HR 12/12/16 History [Iprat-Albut 0.5-3(2.5) mg/3 ml] Lansoprazole [Prevacid] 30 mg GT QAM 12/12/16 History Levetiracetam 10 ml GT Q12HR 12/12/16 History Melatonin 6 mg GT HS 12/12/16 History Nitrofurantoin Monohyd/M-Cryst 100 mg GT BID 12/12/16 History [Macrobid 100 mg Capsule] Omeprazole 20 mg GT DAILY 12/12/16 History Phenytoin [Dilantin*] 100 mg GT BID 12/12/16 History Prednisone [Deltasone] 20 mg GT DAILY 12/12/16 History cloNIDine HCl [Catapres] 1 tab GT Q6HR PRN 12/12/16 History Current Medications Generic Name Dose Route Start Last Admin Trade Name Freq PRN Reason Stop Dose Admin Acetaminophen 320 mg 12/13/16 01:26 12/16/16 09:40 Tylenol Children GT 02/11/17 01:25 320 mg Q4HR PRN Administration TEMP >100F Acetaminophen 320 mg 12/13/16 01:26 12/14/16 17:47 Tylenol Children PO 02/11/17 01:25 320 mg Q4HR PRN Administration Pain (Mild) Albuterol/Ipratropium 3 ml 12/13/16 01:26 Duoneb Neb N 02/11/17 01:25 Q2HR PRN Shortness of Breath or Wheeze Albuterol/Ipratropium 3 ml 12/13/16 03:00 12/17/16 07:19 Duoneb Neb N 02/11/17 02:59 3 ml Q4HRT PITO Administration Amlodipine Besylate 5 mg 12/13/16 09:00 12/17/16 09:46 Norvasc GT 02/11/17 08:59 5 mg DAILY PITO Administration Carvedilol 12.5 mg 12/13/16 09:00 12/17/16 09:46 Coreg GT 02/11/17 08:59 12.5 mg Q12HR PITO Administration Ceftriaxone Sodium 1 gm/ 50 mls @ 100 mls/hr 12/13/16 03:00 12/16/16 02:41 Sodium Chloride IV 02/11/17 02:59 100 mls/hr Q24HR P[facility]O Administration Dextrose/Sodium Chloride 1,000 mls @ 50 mls/hr 12/14/16 21:45 12/15/16 22:03 D5-0.9%Ns IV 02/12/17 21:44 50 mls/hr .Q20H PITO Administration Piperacillin Sod/Tazobactam 50 mls @ 100 mls/hr 12/17/16 15:00 Sod 3.375 gm/ Sodium Chloride IV 02/15/17 14:59 Q8HRT PITO Insulin Aspart 0 units 12/13/16 06:00 12/17/16 09:06 Novolog Insulin Sliding Scale SUBQ 02/11/17 05:59 Not Given Q6HR PITO Protocol Insulin Detemir 10 units 12/13/16 09:00 12/17/16 09:56 Levemir Insulin SUBQ 02/11/17 08:59 10 units Q12HR P[facility]O Administration Lactobacillus Rhamnosus 1 each 12/14/16 09:00 12/17/16 09:44 Culturelle PO 02/12/17 08:59 1 each DAILY [facility]O Administration Levetiracetam 1,000 mg 12/13/16 09:00 12/17/16 09:45 Keppra GT 02/11/17 08:59 1,000 mg Q12HR PITO Administration Magnesium Hydroxide 30 ml 12/16/16 14:08 12/16/16 14:41 Milk Of Magnesia PO 02/14/17 14:07 30 ml TID PRN Administration Constipation Miscellaneous 1 ea 12/13/16 15:00 Probiotic Screen MC 02/11/17 14:59 PRN PRN PROTOCOL Morphine Sulfate 2 mg 12/16/16 14:53 12/16/16 23:02 Morphine IVP 02/14/17 14:52 2 mg Q4HR PRN Administration Severe Pain Pantoprazole Sodium 40 mg 12/13/16 09:00 12/17/16 09:44 Protonix GT 02/11/17 08:59 40 mg QAM PITO Administration Phenytoin 100 mg 12/13/16 09:00 12/17/16 09:44 Dilantin GT 02/11/17 08:59 100 mg BID PITO Administration Review of Systems: A 12 point ROS was reviewed with the pertinent positive and negatives noted in the HPI. Social History Smoking Status Never smoker Drug Use No Alcohol Use No Family Medical History not available. Physical Exam: General: Comfortable, not in distress. HEENT: Head: Normocephalic, atraumatic. Oral cavity: moist, pink tongue. Face symmetric. Eyes: There is no pallor, no icterus, Pupil PERRLA. EOMI. Neck: Supple, no JVD, no carotid bruit, trachea in midline. Cardio: S1 and S2 WNL. Respiratory: Vesicular breath sounds. no crackles. Abdominal: Soft NT ND BS present. Back: NO spinal or cva tenderness. Genital/Urinary: deferred Extremities: NCCE. Neurological: Confused. Assessment: 1. UTI, Providencia stuartii UTI. likely CRE. 2. DM2. 3. HTN. 4. COPD. 5. CHARLIE. 6. Hyperlipidemia 7. Dementia. Plan: Renal US, if negative may dc patient on bactrim DS 1 tab po bid for 7 days. Repeat UA and urine culture at the end of the therapy. Contact isolation. Thank you, Dr Galvan for involving me in taking care of this patient. Signed, Byron Meyer M.D. [id number]
--- NOTE | 2016-12-17 13:21 | Diagnostic Imaging Report ---
Renal ultrasound HISTORY: pyelonephritis . COMPARISON: None Technique: Sonography of the kidneys and urinary bladder was performed in multiple planes. FINDINGS: The right kidney measures 10.8 x 6 cm. Severe hydronephrosis is noted. No evidence of focal lesions. The left kidney measures 10.6 x 5.6 cm. Moderate to severe left hydronephrosis is noted. No evidence of focal lesions. The urinary bladder is underdistended. There appears to be a Morin catheter in place. IMPRESSION: Severe right-sided and moderate to severe left-sided hydronephrosis. Please correlate with clinical findings. The urinary bladder appears collapsed and likely contains a Morin catheter. Please correlate clinically.
--- NOTE | 2016-12-17 15:41 | Diagnostic Imaging Report ---
CT abdomen and pelvis without intravenous contrast Indication: Hydronephrosis Comparison: Renal ultrasound performed the same day, Technique: Axial images were obtained from the lung bases to the bilateral proximal femurs without IV contrast. Coronal reconstructions were made. total DLP: 828, CTDI17.9 FINDINGS: Bibasilar passive atelectasis and consolidative changes are noted. Assessment of the solid organs is limited due to lack of IV contrast. There is a 2.4 cm low density lesion at the hepatic dome units most suggestive of a cyst. No radiopaque gallstones. No focal splenic lesions. Pancreatic atrophy is noted with no discrete focal lesions. No focal renal lesions. There is moderate to severe bilateral hydronephrosis and hydroureter. Morin catheter is seen with pockets of gas within the urinary bladder. Distal fecal impaction is seen with mass effect upon the base of the urinary bladder. Colonic diverticulosis is noted without evidence of diverticulitis. No evidence of appendicitis. Trace free fluid is noted. No free air.. Minimal inflammatory changes of the pelvis fat planes and bilateral perinephric regions are noted, nonspecific. Diffuse atrophy vascular disease is noted. There is diffuse edema seen along the left breast region and left lateral subcutaneous tissues. Degenerative changes of the spine and pelvis are noted A G-tube is noted, probably malpositioned with distal aspect along the subcutaneous tissues of the anterior abdominal wall adjacent to the wall of the stomach. IMPRESSION: Moderate to severe bilateral hydronephrosis possibly long-standing. Morin catheter is seen within nondistended urinary bladder with pockets of gas within the urinary bladder also noted. Please correlate clinically. G-tube probably malpositioned with distal aspect along the subcutaneous tissues of the anterior abdominal wall just adjacent to the wall of the stomach. Correlate clinically. Distal fecal impaction with mass effect seen upon the urinary bladder from patient's distal fecal impaction Diverticulosis without evidence of diverticulitis. Mild nonspecific perinephric inflammatory changes and mild inflammatory changes seen along the lower pelvis with trace free fluid. Diffuse edema along the left breast region extending to the left lateral abdominal wall. Please correlate with clinical findings. If necessary mammography may be helpful Hepatic low density lesion most suggestive of a cyst. Ultrasound would further clarify. Diffuse atherosclerotic vascular disease. Small bilateral pleural effusions and bibasilar passive atelectasis and consolidative changes Final results were administered to the referring team on 12/17/2016 at 3:30 PM.
[2016-12-17] MEDS: Morphine Sulfate 2 mg/mL 1mL Syr IVP PRN (16:34)
--- NOTE | 2016-12-17 19:59 | Internal Medicine Prog Note ---
Internal Medicine Subjective - Subjective Patient seen and examined:: with staff Patient is:: confused Per staff patient has:: tolerating meds Internal Medicine Objective - Results Result Diagrams: 12/17/16 05:15 12/17/16 05:15 Recent Labs: Laboratory Last Values WBC 11.9 Th/cmm (4.8-10.8) H 12/17/16 05:15 RBC 2.80 Mil/cmm (3.80-5.20) L 12/17/16 05:15 Hgb 8.6 gm/dL (12-16) L 12/17/16 05:15 Hct 25.8 % (41.0-60) L D 12/17/16 05:15 MCV 92.4 fl (81-100) 12/17/16 05:15 MCH 30.9 pg (27.0-31.0) 12/17/16 05:15 MCHC Differential 33.5 pg (28.0-36.0) 12/17/16 05:15 RDW 16.0 % (11.5-20.0) 12/17/16 05:15 Plt Count 197 Th/cmm (150-400) 12/17/16 05:15 MPV 9.4 fl 12/17/16 05:15 Neutrophils % 72.1 % (40.0-80.0) 12/17/16 05:15 Band Neutrophils % 4 % (0-10) 12/14/16 18:03 Lymphocytes % 16.1 % (20.0-50.0) L 12/17/16 05:15 Monocytes % 9.2 % (2.0-10.0) 12/17/16 05:15 Eosinophils % 2.4 % (0.0-5.0) 12/17/16 05:15 Basophils % 0.2 % (0.0-2.0) 12/17/16 05:15 Neutrophils (Manual) 80 % (40-80) 12/14/16 18:03 Lymphocytes 13 % (20-50) L 12/14/16 18:03 Monocytes 3 % (2-10) 12/14/16 18:03 Eosinophils 1 % (0-5) 12/14/16 05:20 Platelet Estimate ADEQUATE (NORMAL) 12/14/16 18:03 PT 9.3 SECONDS (9.5-11.5) L 12/12/16 21:56 INR 0.90 (0.5-1.4) 12/12/16 21:56 PTT (Actin FS) 22.0 SECONDS (26.0-38.0) L 12/12/16 21:56 Sodium 141 mEq/L (136-145) 12/17/16 05:15 Potassium 3.8 mEq/L (3.5-5.1) 12/17/16 05:15 Chloride 109 mEq/L (98-107) H 12/17/16 05:15 Carbon Dioxide 30.1 mEq/L (21.0-31.0) 12/17/16 05:15 Anion Gap 5.7 (7.0-16.0) L 12/17/16 05:15 BUN 47 mg/dL (7-25) H 12/17/16 05:15 Creatinine 0.9 mg/dL (0.6-1.2) 12/17/16 05:15 Est GFR ( Amer) TNP 12/17/16 05:15 Est GFR (Non-Af Amer) TNP 12/17/16 05:15 BUN/Creatinine Ratio 52.2 12/17/16 05:15 Glucose 148 mg/dL (70-105) H 12/17/16 05:15 POC Glucose 128 MG/DL (70 - 105) H 12/17/16 18:04 Hemoglobin A1c % 7.3 % (4.0-6.0) H 12/14/16 05:20 Whole Bld Lactic Acid 1.82 mmol/L (0.60-1.99) 12/12/16 21:56 Calcium 7.2 mg/dL (8.6-10.3) L 12/17/16 05:15 Magnesium 2.1 mg/dL (1.9-2.7) 12/17/16 05:15 Total Bilirubin 0.2 mg/dL (0.3-1.0) L 12/17/16 05:15 AST 14 U/L (13-39) 12/17/16 05:15 ALT 20 U/L (7-52) 12/17/16 05:15 Alkaline Phosphatase 66 U/L (34-104) 12/17/16 05:15 Creatine Kinase < 10 U/L (30-223) L 12/12/16 21:36 Troponin I 0.04 ng/mL (0.01-0.05) 12/12/16 21:56 B-Natriuretic Peptide 440.0 pg/mL (5.0-100.0) H 12/12/16 21:56 Total Protein 5.1 gm/dL (6.0-8.3) L 12/17/16 05:15 Albumin 2.0 gm/dL (3.7-5.3) L 12/17/16 05:15 Globulin 3.1 gm/dL 12/17/16 05:15 Albumin/Globulin Ratio 0.7 (1.0-1.8) L 12/17/16 05:15 Triglycerides 215 mg/dL (<150) H 12/12/16 21:36 Cholesterol 145 mg/dL (<200) 12/12/16 21:36 LDL Cholesterol Direct 87 mg/dL (75-193) 12/12/16 21:36 HDL Cholesterol 36 mg/dL (23-92) 12/12/16 21:36 Urine Source MIDSTREAM 12/12/16 23:15 Urine Color YELLOW 12/12/16 23:15 Urine Clarity CLOUDY (CLEAR) H 12/12/16 23:15 Urine pH 6.5 (4.6 - 8.0) 12/12/16 23:15 Ur Specific [place] 1.010 (1.005-1.030) 12/12/16 23:15 Urine Protein 100 mg/dL (NEGATIVE) H 12/12/16 23:15 Urine Glucose (UA) NEGATIVE mg/dL (NEGATIVE) 12/12/16 23:15 Urine Ketones NEGATIVE mg/dL (NEGATIVE) 12/12/16 23:15 Urine Blood TRACE (NEGATIVE) 12/12/16 23:15 Urine Nitrate POSITIVE (NEGATIVE) H 12/12/16 23:15 Urine Bilirubin NEGATIVE (NEGATIVE) 12/12/16 23:15 Urine Urobilinogen 0.2 E.U./dL (0.2 - 1.0) 12/12/16 23:15 Ur Leukocyte Esterase LARGE (NEGATIVE) H 12/12/16 23:15 Urine RBC 2-5 /hpf (0-5) 12/12/16 23:15 Urine WBC >100 /hpf (0-5) H 12/12/16 23:15 Ur Epithelial Cells MODERATE /lpf (FEW) 12/12/16 23:15 Urine Bacteria MANY /hpf (NONE SEEN) 12/12/16 23:15 Blood Type O POSITIVE 12/16/16 11:34 Antibody Screen NEGATIVE 12/16/16 11:34 Crossmatch See Detail 12/16/16 11:34 - Physical Exam Vitals and I&O: Vital Signs Temp 96.8 F 12/17/16 16:00 Pulse 76 12/17/16 17:48 Resp 18 12/17/16 16:00 BP 171/61 12/17/16 17:48 Pulse Ox 100 12/17/16 16:00 Intake & Output 12/17/16 12/17/16 12/18/16 06:59 18:59 06:59 Intake Total 350 Output Total 1125 Balance -775 Weight (lbs) 110.268 kg 110.268 kg Intake: Tube Feeding 150 Other 200 Output: Urine 1125 Other: # Bowel Movements 1 Active Medications: Current Medications Acetaminophen (Tylenol Children) 320 mg GT Q4HR PRN PRN Reason: TEMP >100F Stop: 02/11/17 01:25 Last Admin: 12/16/16 09:40 Dose: 320 mg Acetaminophen (Tylenol Children) 320 mg PO Q4HR PRN PRN Reason: Pain (Mild) Stop: 02/11/17 01:25 Last Admin: 12/14/16 17:47 Dose: 320 mg Albuterol/Ipratropium (Duoneb Neb) 3 ml HHN Q2HR PRN PRN Reason: Shortness of Breath or Wheeze Stop: 02/11/17 01:25 Albuterol/Ipratropium (Duoneb Neb) 3 ml HHN Q4HRT PITO Stop: 02/11/17 02:59 Last Admin: 12/17/16 19:29 Dose: 3 ml Amlodipine Besylate (Norvasc) 5 mg GT DAILY PITO Stop: 02/11/17 08:59 Last Admin: 12/17/16 09:46 Dose: 5 mg Carvedilol (Coreg) 12.5 mg GT Q12HR PITO Stop: 02/11/17 08:59 Last Admin: 12/17/16 09:46 Dose: 12.5 mg Hydralazine HCl (Apresoline 20 Mg/Ml) 10 mg IV Q6HR PRN PRN Reason: DBP ABOVE 90/SBP ABOBE 160 Stop: 02/15/17 16:42 Last Admin: 12/17/16 17:48 Dose: 10 mg Ceftriaxone Sodium 1 gm/ (Sodium Chloride) 50 mls @ 100 mls/hr IV Q24HR [facility] Stop: 02/11/17 02:59 Last Admin: 12/16/16 02:41 Dose: 100 mls/hr Dextrose/Sodium Chloride (D5-0.9%Ns) 1,000 mls @ 50 mls/hr IV .Q20H PITO Stop: 02/12/17 21:44 Last Admin: 12/15/16 22:03 Dose: 50 mls/hr Piperacillin Sod/Tazobactam (Sod 3.375 gm/ Sodium Chloride) 50 mls @ 100 mls/ hr IV Q8HRT [facility] Stop: 02/15/17 14:59 Last Admin: 12/17/16 14:24 Dose: 100 mls/hr Insulin Aspart (Novolog Insulin Sliding Scale) 0 units SUBQ Q6HR PITO PRN Reason: Protocol Stop: 02/11/17 05:59 Last Admin: 12/17/16 18:09 Dose: Not Given Insulin Detemir (Levemir Insulin) 10 units SUBQ Q12HR PITO Stop: 02/11/17 08:59 Last Admin: 12/17/16 09:56 Dose: 10 units Lactobacillus Rhamnosus (Culturelle) 1 each PO DAILY [facility] Stop: 02/12/17 08:59 Last Admin: 12/17/16 09:44 Dose: 1 each Levetiracetam (Keppra) 1,000 mg GT Q12HR PITO Stop: 02/11/17 08:59 Last Admin: 12/17/16 09:45 Dose: 1,000 mg Magnesium Hydroxide (Milk Of Magnesia) 30 ml PO TID PRN PRN Reason: Constipation Stop: 02/14/17 14:07 Last Admin: 12/16/16 14:41 Dose: 30 ml Miscellaneous (Probiotic Screen) 1 ea MC PRN PRN PRN Reason: PROTOCOL Stop: 02/11/17 14:59 Morphine Sulfate (Morphine) 2 mg IVP Q4HR PRN PRN Reason: Severe Pain Stop: 02/14/17 14:52 Last Admin: 12/17/16 16:34 Dose: 2 mg Pantoprazole Sodium (Protonix) 40 mg GT QAM PITO Stop: 02/11/17 08:59 Last Admin: 12/17/16 09:44 Dose: 40 mg Phenytoin (Dilantin) 100 mg GT BID PITO Stop: 02/11/17 08:59 Last Admin: 12/17/16 16:27 Dose: Not Given General: weak, demented HEENT: NC/AT, PERRLA Lungs: CTAB Cardiovascular: RRR, Normal S1, Normal S2 Abdomen: soft, non-tender, non-distended, positive bowel sound Neurological: alert Internal Medicine Assmt/Plan - Assessment Assessment: sepsis poss sepsis syndrome anemia pneumonia myocardiac ischemia hyponatremia arthritis hx dysphagia hx gt status hx copd hx sleep apnea - Plan Plan: ivantibiotics iv fluid cpm Nutritional Asmnt/Malnutr-PDOC - Dietary Evaluation Malnutrition Findings (Please click <Entered> for more info): Nutritional Asmnt/Malnutrition Start: 12/13/16 15: 20 Text: Status: Complete Freq: Document 12/13/16 15:21 GSUN (Rec: 12/13/16 15:43 [email or web address] [email or web address]) Nutritional Asmnt/Malnutrition Patient General Information Nutritional Screening High Risk Screening Diagnosis ER report: [place], sepsis, PNA, dehydration, anemia, leykocytosis, weakness Pertinent Medical Hx/Surgical Hx ER report: HTN, DM, asthma/ COPD, dyslipidemia, PUD/GERD, arthritis Subjective Information 76 year old female from SNF. 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 Observed tube feeding infusing as ordered. Confirmed tube feeding order and on/off time with GREGORIO Lozano RN stated pt tolerating well since adm. Pt appeared mobidly obese. Unable to obtain CBW due to bedscale imporperly calibrated. Current Diet Order/ Nutrition Support Diabetisource 65ml/hr x 20hrs, providing 1560kcal, 78g protein Pertinent Medications D5-0.9%ns, Novolog, Levemir, Culturelle, Protonix, Dilatin Pertinent Labs 12/12: glucose 151H, triglycerides 215H, BUN 59H POC glucose 169H, 186H Nutritional Hx/Data Height 1.55 m Height (Calculated Centimeters) 154.9 Current Weight (lbs) 100.244 kg Weight (Calculated Kilograms) 100.2 Weight (Calculated Grams) 240297.9 [place] Body Weight 105 Weight Status Morbidly Obese GI Symptoms Food Allergies No Usual diet at home [facility]: glucerna 1.2 at 60ml/hr x 20hrs Skin Integrity/Comment: [place] 13. Left and right buttocks reddened. Estimated Nutritional Goals BEE in Kcals: Adj wt of IBW Calories/Kcals/Kg AdjBW 131.5lb/59.8kg (to 211lb adm weight 12/12/16) Kcals Calculated 1794-2093kcal (30-35kcal/kg) Protein: Adj wt of IBW Protein Calculated 72-90g (1.2-1.5g/kg) Fluid: ml 1794-2093ml (1ml/kcal) Nutritional Problem 1. Problem Problem Increased kcal and prot needs related to Etiology hypermatbolic state aeb Signs/Symptoms: PNA and sepsis per ER report Malnutrition Related to Morbid Obesity Malnutrition related to morbid obesity BMI> or equal to 40 Query Text:(Any 1 Criteria met) Malnutrition related to morbid obesity Yes Intervention/Recommendation Comments 1. Recommend increasing Diabetisource to 75ml/hr x 20hrs, providing 1800kcal, 90g protein, 1500ml total volume. Increased kcal and prot needs due to hypermetabolic state - sepsis, PNA per ER report. Expected Outcomes/Goals Expected Outcomes/Goals 1. Pt to meet at least 100% of estimated nutritinoal needs on tube feeding with tolerance .
[2016-12-17] MEDS: D5-0.9%NS 1,000 ML IV SCH (23:15)
[2016-12-18] MEDS: INSULIN ASPART SLIDING SCALE 100 UNITS/ML UNIT SUBQ SCH ×5 (00:49→23:57)
[2016-12-18] MEDS: Albuterol/Ipratropium Neb 3 ML AERS HHN SCH ×6 (02:37→22:36)
[2016-12-18] MEDS: cefTRIAXone 1 GM in Sodium Chloride 0.9% 50 ML IV SCH ×2 (03:10→03:11)
[2016-12-18] MEDS: Morphine Sulfate 2 mg/mL 1mL Syr IVP PRN (05:42)
[2016-12-18 06:16] LABS: % BASOPHILS 0.3 % (0.0-2.0); % EOSINOPHILS 2.9 % (0.0-5.0); % LYMPHOCYTES 17.5 % (20.0-50.0); % MONOCYTES 9.9 % (2.0-10.0); % NEUTROPHILS 69.4 % (40.0-80.0); EOSINOPHILE ABSOLUTE 0.3 Th/cmm (0.1-0.4); HEMOGLOBIN 10.1 gm/dL (12-16); MEAN CELL VOLUME 92.6 fl (81-100); MEAN CORPUSCULAR HGB CONC 33.4 pg (28.0-36.0); MEAN PLATELET VOLUME 9.3 fl; MONOCYTE ABSOLUTE 1.1 Th/cmm (0.3-1.0); RED BLOOD COUNT 3.27 Mil/cmm (3.80-5.20); RED CELL DISTRIBUTION WIDTH 15.5 % (11.5-20.0); WHITE BLOOD COUNT 11.4 Th/cmm (4.8-10.8)
[2016-12-18 06:23] LABS: HEMATOCRIT 30.3 % (41.0-60); PLATELET COUNT 256 Th/cmm (150-400)
[2016-12-18 06:28] LABS: INR 0.99 (0.5-1.4); PROTHROMBIN TIME (TEST) 10.3 SECONDS (9.5-11.5)
[2016-12-18 06:31] LABS: ALB/GLOB RATIO 0.6 (1.0-1.8); ALBUMIN 2.2 gm/dL (3.7-5.3); ALKALINE PHOSPHATASE 57 U/L (34-104); ANION GAP 8.8 (7.0-16.0); BILIRUBIN,TOTAL 0.4 mg/dL (0.3-1.0); BUN - UREA NITROGEN 37 mg/dL (7-25); CALCIUM SERUM 8.1 mg/dL (8.6-10.3); CARBON DIOXIDE 27.6 mEq/L (21.0-31.0); CHLORIDE 111 mEq/L (98-107); CREATININE - SERUM 0.8 mg/dL (0.6-1.2); GLUCOSE 151 mg/dL (70-105); MAGNESIUM 2.1 mg/dL (1.9-2.7); POTASSIUM SERUM 3.4 mEq/L (3.5-5.1); SGOT 19 U/L (13-39); SGPT/ALT 21 U/L (7-52); SODIUM SERUM 144 mEq/L (136-145); TOTAL PROTEIN,SERUM 5.9 gm/dL (6.0-8.3)
[2016-12-18] MEDS ORDERED: Lidocaine 2% Gel 5 mL TP ONE (07:30)
[2016-12-18] MEDS: Insulin Detemir 100 units/mL 10mL Vial SUBQ SCH ×2 (09:00→20:57)
[2016-12-18] MEDS: Pantoprazole 40 mg/Packet GT SCH (09:49)
[2016-12-18] MEDS: Levetiracetam 500 mg/5mL 5mL UDC GT SCH ×2 (09:49→20:44)
[2016-12-18] MEDS: Lactobacillus Rhamnosus 10 Billion CFU Capsule PO SCH (09:49)
--- NOTE | 2016-12-18 09:56 | General Progress Note ---
Subjective - Review of Systems Events since last encounter: patient confused c/o weakness denies pain Subjective: awake confused nad Objective - Results Result Diagrams: 12/18/16 05:35 12/18/16 05:35 Recent Labs: Laboratory Last Values WBC 11.4 Th/cmm (4.8-10.8) H 12/18/16 05:35 RBC 3.27 Mil/cmm (3.80-5.20) L 12/18/16 05:35 Hgb 10.1 gm/dL (12-16) L 12/18/16 05:35 Hct 30.3 % (41.0-60) L D 12/18/16 05:35 MCV 92.6 fl (81-100) 12/18/16 05:35 MCH 31.0 pg (27.0-31.0) 12/18/16 05:35 MCHC Differential 33.4 pg (28.0-36.0) 12/18/16 05:35 RDW 15.5 % (11.5-20.0) 12/18/16 05:35 Plt Count 256 Th/cmm (150-400) D 12/18/16 05:35 MPV 9.3 fl 12/18/16 05:35 Neutrophils % 69.4 % (40.0-80.0) 12/18/16 05:35 Band Neutrophils % 4 % (0-10) 12/14/16 18:03 Lymphocytes % 17.5 % (20.0-50.0) L 12/18/16 05:35 Monocytes % 9.9 % (2.0-10.0) 12/18/16 05:35 Eosinophils % 2.9 % (0.0-5.0) 12/18/16 05:35 Basophils % 0.3 % (0.0-2.0) 12/18/16 05:35 Neutrophils (Manual) 80 % (40-80) 12/14/16 18:03 Lymphocytes 13 % (20-50) L 12/14/16 18:03 Monocytes 3 % (2-10) 12/14/16 18:03 Eosinophils 1 % (0-5) 12/14/16 05:20 Platelet Estimate ADEQUATE (NORMAL) 12/14/16 18:03 PT 10.3 SECONDS (9.5-11.5) 12/18/16 05:35 INR 0.99 (0.5-1.4) 12/18/16 05:35 PTT (Actin FS) 22.0 SECONDS (26.0-38.0) L 12/12/16 21:56 Sodium 144 mEq/L (136-145) 12/18/16 05:35 Potassium 3.4 mEq/L (3.5-5.1) L 12/18/16 05:35 Chloride 111 mEq/L (98-107) H 12/18/16 05:35 Carbon Dioxide 27.6 mEq/L (21.0-31.0) 12/18/16 05:35 Anion Gap 8.8 (7.0-16.0) 12/18/16 05:35 BUN 37 mg/dL (7-25) H 12/18/16 05:35 Creatinine 0.8 mg/dL (0.6-1.2) 12/18/16 05:35 Est GFR ( Amer) TNP 12/18/16 05:35 Est GFR (Non-Af Amer) TNP 12/18/16 05:35 BUN/Creatinine Ratio 46.3 12/18/16 05:35 Glucose 151 mg/dL (70-105) H 12/18/16 05:35 POC Glucose 164 MG/DL (70 - 105) H 12/18/16 05:35 Hemoglobin A1c % 7.3 % (4.0-6.0) H 12/14/16 05:20 Whole Bld Lactic Acid 1.82 mmol/L (0.60-1.99) 12/12/16 21:56 Calcium 8.1 mg/dL (8.6-10.3) L 12/18/16 05:35 Magnesium 2.1 mg/dL (1.9-2.7) 12/18/16 05:35 Total Bilirubin 0.4 mg/dL (0.3-1.0) 12/18/16 05:35 AST 19 U/L (13-39) 12/18/16 05:35 ALT 21 U/L (7-52) 12/18/16 05:35 Alkaline Phosphatase 57 U/L (34-104) 12/18/16 05:35 Creatine Kinase < 10 U/L (30-223) L 12/12/16 21:36 Troponin I 0.04 ng/mL (0.01-0.05) 12/12/16 21:56 B-Natriuretic Peptide 440.0 pg/mL (5.0-100.0) H 12/12/16 21:56 Total Protein 5.9 gm/dL (6.0-8.3) L 12/18/16 05:35 Albumin 2.2 gm/dL (3.7-5.3) L 12/18/16 05:35 Globulin 3.7 gm/dL 12/18/16 05:35 Albumin/Globulin Ratio 0.6 (1.0-1.8) L 12/18/16 05:35 Triglycerides 215 mg/dL (<150) H 12/12/16 21:36 Cholesterol 145 mg/dL (<200) 12/12/16 21:36 LDL Cholesterol Direct 87 mg/dL (75-193) 12/12/16 21:36 HDL Cholesterol 36 mg/dL (23-92) 12/12/16 21:36 Urine Source MIDSTREAM 12/12/16 23:15 Urine Color YELLOW 12/12/16 23:15 Urine Clarity CLOUDY (CLEAR) H 12/12/16 23:15 Urine pH 6.5 (4.6 - 8.0) 12/12/16 23:15 Ur Specific [place] 1.010 (1.005-1.030) 12/12/16 23:15 Urine Protein 100 mg/dL (NEGATIVE) H 12/12/16 23:15 Urine Glucose (UA) NEGATIVE mg/dL (NEGATIVE) 12/12/16 23:15 Urine Ketones NEGATIVE mg/dL (NEGATIVE) 12/12/16 23:15 Urine Blood TRACE (NEGATIVE) 12/12/16 23:15 Urine Nitrate POSITIVE (NEGATIVE) H 12/12/16 23:15 Urine Bilirubin NEGATIVE (NEGATIVE) 12/12/16 23:15 Urine Urobilinogen 0.2 E.U./dL (0.2 - 1.0) 12/12/16 23:15 Ur Leukocyte Esterase LARGE (NEGATIVE) H 12/12/16 23:15 Urine RBC 2-5 /hpf (0-5) 12/12/16 23:15 Urine WBC >100 /hpf (0-5) H 12/12/16 23:15 Ur Epithelial Cells MODERATE /lpf (FEW) 12/12/16 23:15 Urine Bacteria MANY /hpf (NONE SEEN) 12/12/16 23:15 Blood Type O POSITIVE 12/16/16 11:34 Antibody Screen NEGATIVE 12/16/16 11:34 Crossmatch See Detail 12/16/16 11:34 - Physical Exam Vitals and I&O: Vital Signs Temp 98.0 F 12/18/16 07:51 Pulse 90 12/18/16 07:51 Resp 19 12/18/16 07:51 BP 164/73 12/18/16 07:51 Pulse Ox 98 12/18/16 07:51 Intake & Output 12/17/16 12/18/16 12/18/16 18:59 06:59 18:59 Intake Total 400 511.667 Output Total 1125 950 Balance -725 -438.333 Weight (lbs) 110.268 kg 110.813 kg Intake: Intake, IV Amount 50 511.667 D5-0.9%Ns 1,000 ml @ 50 360 mls/hr IV .Q20H [facility] Rx#: [id number] Piperacillin Sodium/ 50 100 Tazobact 3.375 gm In Sodium Chloride 0.9% 50 ml @ 100 mls/hr IV Q8HRT [facility] Rx#:[id number] cefTRIAXone 1 gm In 51.667 Sodium Chloride 0.9% 50 ml @ 100 mls/hr IV Q24HR [facility] Rx#:[id number] Tube Feeding 150 Other 200 Output: Urine 1125 950 Other: # Bowel Movements 1 1 Stool Characteristics Soft Active Medications: Current Medications Acetaminophen (Tylenol Children) 320 mg GT Q4HR PRN PRN Reason: TEMP >100F Stop: 02/11/17 01:25 Last Admin: 12/16/16 09:40 Dose: 320 mg Acetaminophen (Tylenol Children) 320 mg PO Q4HR PRN PRN Reason: Pain (Mild) Stop: 02/11/17 01:25 Last Admin: 12/14/16 17:47 Dose: 320 mg Albuterol/Ipratropium (Duoneb Neb) 3 ml HHN Q2HR PRN PRN Reason: Shortness of Breath or Wheeze Stop: 02/11/17 01:25 Albuterol/Ipratropium (Duoneb Neb) 3 ml HHN Q4HRT [facility] Stop: 02/11/17 02:59 Last Admin: 12/18/16 07:26 Dose: 3 ml Amlodipine Besylate (Norvasc) 5 mg GT DAILY PITO Stop: 02/11/17 08:59 Last Admin: 12/17/16 09:46 Dose: 5 mg Carvedilol (Coreg) 12.5 mg GT Q12HR PITO Stop: 02/11/17 08:59 Last Admin: 12/17/16 21:04 Dose: Not Given Hydralazine HCl (Apresoline 20 Mg/Ml) 10 mg IV Q6HR PRN PRN Reason: DBP ABOVE 90/SBP ABOBE 160 Stop: 02/15/17 16:42 Last Admin: 12/17/16 17:48 Dose: 10 mg Ceftriaxone Sodium 1 gm/ (Sodium Chloride) 50 mls @ 100 mls/hr IV Q24HR PITO Stop: 02/11/17 02:59 Last Infusion: 12/18/16 06:28 Dose: Infused Dextrose/Sodium Chloride (D5-0.9%Ns) 1,000 mls @ 50 mls/hr IV .Q20H PITO Stop: 02/12/17 21:44 Last Infusion: 12/18/16 06:27 Dose: 50 mls/hr Piperacillin Sod/Tazobactam (Sod 3.375 gm/ Sodium Chloride) 50 mls @ 100 mls/ hr IV Q8HRT [facility] Stop: 02/15/17 14:59 Last Infusion: 12/18/16 06:28 Dose: Infused Insulin Aspart (Novolog Insulin Sliding Scale) 0 units SUBQ Q6HR PITO PRN Reason: Protocol Stop: 02/11/17 05:59 Last Admin: 12/18/16 05:39 Dose: Not Given Insulin Detemir (Levemir Insulin) 10 units SUBQ Q12HR PITO Stop: 02/11/17 08:59 Last Admin: 12/17/16 21:49 Dose: Not Given Lactobacillus Rhamnosus (Culturelle) 1 each PO DAILY [facility] Stop: 02/12/17 08:59 Last Admin: 12/17/16 09:44 Dose: 1 each Levetiracetam (Keppra) 1,000 mg GT Q12HR PITO Stop: 02/11/17 08:59 Last Admin: 12/17/16 21:03 Dose: Not Given Magnesium Hydroxide (Milk Of Magnesia) 30 ml PO TID PRN PRN Reason: Constipation Stop: 02/14/17 14:07 Last Admin: 12/16/16 14:41 Dose: 30 ml Miscellaneous (Probiotic Screen) 1 ea MC PRN PRN PRN Reason: PROTOCOL Stop: 02/11/17 14:59 Morphine Sulfate (Morphine) 2 mg IVP Q4HR PRN PRN Reason: Severe Pain Stop: 02/14/17 14:52 Last Admin: 12/18/16 05:42 Dose: 2 mg Pantoprazole Sodium (Protonix) 40 mg GT QAM PITO Stop: 02/11/17 08:59 Last Admin: 12/17/16 09:44 Dose: 40 mg Phenytoin (Dilantin) 100 mg GT BID PITO Stop: 02/11/17 08:59 Last Admin: 12/17/16 16:27 Dose: Not Given General: Alert, Other (confused) HEENT: Atraumatic Cardiovascular: Regular rate Abdomen: Bowel sounds, Soft Extremities: Pulses Assessment/Plan - Assessment Assessment: sepsis poss sepsis syndrome anemia pneumonia myocardiac ischemia hyponatremia arthritis hx dysphagia hx gt status hx copd hx sleep apnea - Plan Plan: ivantibiotics iv fluid cpm Nutritional Asmnt/Malnutr-PDOC - Dietary Evaluation Malnutrition Findings (Please click <Entered> for more info): Nutritional Asmnt/Malnutrition Start: 12/13/16 15: 20 Text: Status: Complete Freq: Document 12/13/16 15:21 GSUN (Rec: 12/13/16 15:43 [email or web address] [email or web address]) Nutritional Asmnt/Malnutrition Patient General Information Nutritional Screening High Risk Screening Diagnosis ER report: [place], sepsis, PNA, dehydration, anemia, leykocytosis, weakness Pertinent Medical Hx/Surgical Hx ER report: HTN, DM, asthma/ COPD, dyslipidemia, PUD/GERD, arthritis Subjective Information 76 year old female from SNF. 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 Observed tube feeding infusing as ordered. Confirmed tube feeding order and on/off time with GREGORIO Lozano RN stated pt tolerating well since adm. Pt appeared mobidly obese. Unable to obtain CBW due to bedscale imporperly calibrated. Current Diet Order/ Nutrition Support Diabetisource 65ml/hr x 20hrs, providing 1560kcal, 78g protein Pertinent Medications D5-0.9%ns, Novolog, Levemir, Culturelle, Protonix, Dilatin Pertinent Labs 12/12: glucose 151H, triglycerides 215H, BUN 59H POC glucose 169H, 186H Nutritional Hx/Data Height 1.55 m Height (Calculated Centimeters) 154.9 Current Weight (lbs) 100.244 kg Weight (Calculated Kilograms) 100.2 Weight (Calculated Grams) 299352.9 [place] Body Weight 105 Weight Status Morbidly Obese GI Symptoms Food Allergies No Usual diet at home [facility] [place] SN[facility]: glucerna 1.2 at 60ml/hr x 20hrs Skin Integrity/Comment: [place] 13. Left and right buttocks reddened. Estimated Nutritional Goals BEE in Kcals: Adj wt of IBW Calories/Kcals/Kg AdjBW 131.5lb/59.8kg (to 211lb adm weight 12/12/16) Kcals Calculated 1794-2093kcal (30-35kcal/kg) Protein: Adj wt of IBW Protein Calculated 72-90g (1.2-1.5g/kg) Fluid: ml 1794-2093ml (1ml/kcal) Nutritional Problem 1. Problem Problem Increased kcal and prot needs related to Etiology hypermatbolic state aeb Signs/Symptoms: PNA and sepsis per ER report Malnutrition Related to Morbid Obesity Malnutrition related to morbid obesity BMI> or equal to 40 Query Text:(Any 1 Criteria met) Malnutrition related to morbid obesity Yes Intervention/Recommendation Comments 1. Recommend increasing Diabetisource to 75ml/hr x 20hrs, providing 1800kcal, 90g protein, 1500ml total volume. Increased kcal and prot needs due to hypermetabolic state - sepsis, PNA per ER report. Expected Outcomes/Goals Expected Outcomes/Goals 1. Pt to meet at least 100% of estimated nutritinoal needs on tube feeding with tolerance .
--- NOTE | 2016-12-18 09:56 | General Progress Note ---
Subjective - Review of Systems Events since last encounter: patient confused c/o weakness denies pain Subjective: awake confused nad Objective - Results Result Diagrams: 12/18/16 05:35 12/18/16 05:35 Recent Labs: Laboratory Last Values WBC 11.4 Th/cmm (4.8-10.8) H 12/18/16 05:35 RBC 3.27 Mil/cmm (3.80-5.20) L 12/18/16 05:35 Hgb 10.1 gm/dL (12-16) L 12/18/16 05:35 Hct 30.3 % (41.0-60) L D 12/18/16 05:35 MCV 92.6 fl (81-100) 12/18/16 05:35 MCH 31.0 pg (27.0-31.0) 12/18/16 05:35 MCHC Differential 33.4 pg (28.0-36.0) 12/18/16 05:35 RDW 15.5 % (11.5-20.0) 12/18/16 05:35 Plt Count 256 Th/cmm (150-400) D 12/18/16 05:35 MPV 9.3 fl 12/18/16 05:35 Neutrophils % 69.4 % (40.0-80.0) 12/18/16 05:35 Band Neutrophils % 4 % (0-10) 12/14/16 18:03 Lymphocytes % 17.5 % (20.0-50.0) L 12/18/16 05:35 Monocytes % 9.9 % (2.0-10.0) 12/18/16 05:35 Eosinophils % 2.9 % (0.0-5.0) 12/18/16 05:35 Basophils % 0.3 % (0.0-2.0) 12/18/16 05:35 Neutrophils (Manual) 80 % (40-80) 12/14/16 18:03 Lymphocytes 13 % (20-50) L 12/14/16 18:03 Monocytes 3 % (2-10) 12/14/16 18:03 Eosinophils 1 % (0-5) 12/14/16 05:20 Platelet Estimate ADEQUATE (NORMAL) 12/14/16 18:03 PT 10.3 SECONDS (9.5-11.5) 12/18/16 05:35 INR 0.99 (0.5-1.4) 12/18/16 05:35 PTT (Actin FS) 22.0 SECONDS (26.0-38.0) L 12/12/16 21:56 Sodium 144 mEq/L (136-145) 12/18/16 05:35 Potassium 3.4 mEq/L (3.5-5.1) L 12/18/16 05:35 Chloride 111 mEq/L (98-107) H 12/18/16 05:35 Carbon Dioxide 27.6 mEq/L (21.0-31.0) 12/18/16 05:35 Anion Gap 8.8 (7.0-16.0) 12/18/16 05:35 BUN 37 mg/dL (7-25) H 12/18/16 05:35 Creatinine 0.8 mg/dL (0.6-1.2) 12/18/16 05:35 Est GFR ( Amer) TNP 12/18/16 05:35 Est GFR (Non-Af Amer) TNP 12/18/16 05:35 BUN/Creatinine Ratio 46.3 12/18/16 05:35 Glucose 151 mg/dL (70-105) H 12/18/16 05:35 POC Glucose 164 MG/DL (70 - 105) H 12/18/16 05:35 Hemoglobin A1c % 7.3 % (4.0-6.0) H 12/14/16 05:20 Whole Bld Lactic Acid 1.82 mmol/L (0.60-1.99) 12/12/16 21:56 Calcium 8.1 mg/dL (8.6-10.3) L 12/18/16 05:35 Magnesium 2.1 mg/dL (1.9-2.7) 12/18/16 05:35 Total Bilirubin 0.4 mg/dL (0.3-1.0) 12/18/16 05:35 AST 19 U/L (13-39) 12/18/16 05:35 ALT 21 U/L (7-52) 12/18/16 05:35 Alkaline Phosphatase 57 U/L (34-104) 12/18/16 05:35 Creatine Kinase < 10 U/L (30-223) L 12/12/16 21:36 Troponin I 0.04 ng/mL (0.01-0.05) 12/12/16 21:56 B-Natriuretic Peptide 440.0 pg/mL (5.0-100.0) H 12/12/16 21:56 Total Protein 5.9 gm/dL (6.0-8.3) L 12/18/16 05:35 Albumin 2.2 gm/dL (3.7-5.3) L 12/18/16 05:35 Globulin 3.7 gm/dL 12/18/16 05:35 Albumin/Globulin Ratio 0.6 (1.0-1.8) L 12/18/16 05:35 Triglycerides 215 mg/dL (<150) H 12/12/16 21:36 Cholesterol 145 mg/dL (<200) 12/12/16 21:36 LDL Cholesterol Direct 87 mg/dL (75-193) 12/12/16 21:36 HDL Cholesterol 36 mg/dL (23-92) 12/12/16 21:36 Urine Source MIDSTREAM 12/12/16 23:15 Urine Color YELLOW 12/12/16 23:15 Urine Clarity CLOUDY (CLEAR) H 12/12/16 23:15 Urine pH 6.5 (4.6 - 8.0) 12/12/16 23:15 Ur Specific [place] 1.010 (1.005-1.030) 12/12/16 23:15 Urine Protein 100 mg/dL (NEGATIVE) H 12/12/16 23:15 Urine Glucose (UA) NEGATIVE mg/dL (NEGATIVE) 12/12/16 23:15 Urine Ketones NEGATIVE mg/dL (NEGATIVE) 12/12/16 23:15 Urine Blood TRACE (NEGATIVE) 12/12/16 23:15 Urine Nitrate POSITIVE (NEGATIVE) H 12/12/16 23:15 Urine Bilirubin NEGATIVE (NEGATIVE) 12/12/16 23:15 Urine Urobilinogen 0.2 E.U./dL (0.2 - 1.0) 12/12/16 23:15 Ur Leukocyte Esterase LARGE (NEGATIVE) H 12/12/16 23:15 Urine RBC 2-5 /hpf (0-5) 12/12/16 23:15 Urine WBC >100 /hpf (0-5) H 12/12/16 23:15 Ur Epithelial Cells MODERATE /lpf (FEW) 12/12/16 23:15 Urine Bacteria MANY /hpf (NONE SEEN) 12/12/16 23:15 Blood Type O POSITIVE 12/16/16 11:34 Antibody Screen NEGATIVE 12/16/16 11:34 Crossmatch See Detail 12/16/16 11:34 - Physical Exam Vitals and I&O: Vital Signs Temp 98.0 F 12/18/16 07:51 Pulse 90 12/18/16 07:51 Resp 19 12/18/16 07:51 BP 164/73 12/18/16 07:51 Pulse Ox 98 12/18/16 07:51 Intake & Output 12/17/16 12/18/16 12/18/16 18:59 06:59 18:59 Intake Total 400 511.667 Output Total 1125 950 Balance -725 -438.333 Weight (lbs) 110.268 kg 110.813 kg Intake: Intake, IV Amount 50 511.667 D5-0.9%Ns 1,000 ml @ 50 360 mls/hr IV .Q20H [facility] Rx#: [id number] Piperacillin Sodium/ 50 100 Tazobact 3.375 gm In Sodium Chloride 0.9% 50 ml @ 100 mls/hr IV Q8HRT [facility] Rx#:[id number] cefTRIAXone 1 gm In 51.667 Sodium Chloride 0.9% 50 ml @ 100 mls/hr IV Q24HR [facility] Rx#:[id number] Tube Feeding 150 Other 200 Output: Urine 1125 950 Other: # Bowel Movements 1 1 Stool Characteristics Soft Active Medications: Current Medications Acetaminophen (Tylenol Children) 320 mg GT Q4HR PRN PRN Reason: TEMP >100F Stop: 02/11/17 01:25 Last Admin: 12/16/16 09:40 Dose: 320 mg Acetaminophen (Tylenol Children) 320 mg PO Q4HR PRN PRN Reason: Pain (Mild) Stop: 02/11/17 01:25 Last Admin: 12/14/16 17:47 Dose: 320 mg Albuterol/Ipratropium (Duoneb Neb) 3 ml HHN Q2HR PRN PRN Reason: Shortness of Breath or Wheeze Stop: 02/11/17 01:25 Albuterol/Ipratropium (Duoneb Neb) 3 ml HHN Q4HRT [facility] Stop: 02/11/17 02:59 Last Admin: 12/18/16 07:26 Dose: 3 ml Amlodipine Besylate (Norvasc) 5 mg GT DAILY PITO Stop: 02/11/17 08:59 Last Admin: 12/17/16 09:46 Dose: 5 mg Carvedilol (Coreg) 12.5 mg GT Q12HR [facility] Stop: 02/11/17 08:59 Last Admin: 12/17/16 21:04 Dose: Not Given Hydralazine HCl (Apresoline 20 Mg/Ml) 10 mg IV Q6HR PRN PRN Reason: DBP ABOVE 90/SBP ABOBE 160 Stop: 02/15/17 16:42 Last Admin: 12/17/16 17:48 Dose: 10 mg Ceftriaxone Sodium 1 gm/ (Sodium Chloride) 50 mls @ 100 mls/hr IV Q24HR [facility] Stop: 02/11/17 02:59 Last Infusion: 12/18/16 06:28 Dose: Infused Dextrose/Sodium Chloride (D5-0.9%Ns) 1,000 mls @ 50 mls/hr IV .Q20H [facility] Stop: 02/12/17 21:44 Last Infusion: 12/18/16 06:27 Dose: 50 mls/hr Piperacillin Sod/Tazobactam (Sod 3.375 gm/ Sodium Chloride) 50 mls @ 100 mls/ hr IV Q8HRT [facility] Stop: 02/15/17 14:59 Last Infusion: 12/18/16 06:28 Dose: Infused Insulin Aspart (Novolog Insulin Sliding Scale) 0 units SUBQ Q6HR [facility] PRN Reason: Protocol Stop: 02/11/17 05:59 Last Admin: 12/18/16 05:39 Dose: Not Given Insulin Detemir (Levemir Insulin) 10 units SUBQ Q12HR [facility] Stop: 02/11/17 08:59 Last Admin: 12/17/16 21:49 Dose: Not Given Lactobacillus Rhamnosus (Culturelle) 1 each PO DAILY [facility] Stop: 02/12/17 08:59 Last Admin: 12/17/16 09:44 Dose: 1 each Levetiracetam (Keppra) 1,000 mg GT Q12HR [facility] Stop: 02/11/17 08:59 Last Admin: 12/17/16 21:03 Dose: Not Given Magnesium Hydroxide (Milk Of Magnesia) 30 ml PO TID PRN PRN Reason: Constipation Stop: 02/14/17 14:07 Last Admin: 12/16/16 14:41 Dose: 30 ml Miscellaneous (Probiotic Screen) 1 ea MC PRN PRN PRN Reason: PROTOCOL Stop: 02/11/17 14:59 Morphine Sulfate (Morphine) 2 mg IVP Q4HR PRN PRN Reason: Severe Pain Stop: 02/14/17 14:52 Last Admin: 12/18/16 05:42 Dose: 2 mg Pantoprazole Sodium (Protonix) 40 mg GT QAM [facility] Stop: 02/11/17 08:59 Last Admin: 12/17/16 09:44 Dose: 40 mg Phenytoin (Dilantin) 100 mg GT BID P[facility] Stop: 02/11/17 08:59 Last Admin: 12/17/16 16:27 Dose: Not Given General: Alert, Other (confused) HEENT: Atraumatic Cardiovascular: Regular rate Abdomen: Bowel sounds, Soft Extremities: Pulses Assessment/Plan - Assessment Assessment: sepsis poss sepsis syndrome anemia pneumonia myocardiac ischemia hyponatremia arthritis hx dysphagia hx gt status hx copd hx sleep apnea - Plan Plan: ivantibiotics iv fluid cpm Nutritional Asmnt/Malnutr-PDOC - Dietary Evaluation Malnutrition Findings (Please click <Entered> for more info): Nutritional Asmnt/Malnutrition Start: 12/13/16 15: 20 Text: Status: Complete Freq: Document 12/13/16 15:21 GSUN (Rec: 12/13/16 15:43 [email or web address] [email or web address]) Nutritional Asmnt/Malnutrition Patient General Information Nutritional Screening High Risk Screening Diagnosis ER report: [place], sepsis, PNA, dehydration, anemia, leykocytosis, weakness Pertinent Medical Hx/Surgical Hx ER report: HTN, DM, asthma/ COPD, dyslipidemia, PUD/GERD, arthritis Subjective Information 76 year old female from SNF. Pt followed medical underwriter with eyes, did not provide any nutrition hx, non-verbal during visit. Observed tube feeding infusing as ordered. Confirmed tube feeding order and on/off time with GREGORIO Lozano RN stated pt tolerating well since adm. Pt appeared mobidly obese. Unable to obtain CBW due to bedscale imporperly calibrated. Current Diet Order/ Nutrition Support Diabetisource 65ml/hr x 20hrs, providing 1560kcal, 78g protein Pertinent Medications D5-0.9%ns, Novolog, Levemir, Culturelle, Protonix, Dilatin Pertinent Labs 12/12: glucose 151H, triglycerides 215H, BUN 59H POC glucose 169H, 186H Nutritional Hx/Data Height 1.55 m Height (Calculated Centimeters) 154.9 Current Weight (lbs) 100.244 kg Weight (Calculated Kilograms) 100.2 Weight (Calculated Grams) 513176.9 [place] Body Weight 105 Weight Status Morbidly Obese GI Symptoms Food Allergies No Usual diet at home [facility] SNF: glucerna 1.2 at 60ml/hr x 20hrs Skin Integrity/Comment: [place] 13. Left and right buttocks reddened. Estimated Nutritional Goals BEE in Kcals: Adj wt of IBW Calories/Kcals/Kg AdjBW 131.5lb/59.8kg (to 211lb adm weight 12/12/16) Kcals Calculated 1794-2093kcal (30-35kcal/kg) Protein: Adj wt of IBW Protein Calculated 72-90g (1.2-1.5g/kg) Fluid: ml 1794-2093ml (1ml/kcal) Nutritional Problem 1. Problem Problem Increased kcal and prot needs related to Etiology hypermatbolic state aeb Signs/Symptoms: PNA and sepsis per ER report Malnutrition Related to Morbid Obesity Malnutrition related to morbid obesity BMI> or equal to 40 Query Text:(Any 1 Criteria met) Malnutrition related to morbid obesity Yes Intervention/Recommendation Comments 1. Recommend increasing Diabetisource to 75ml/hr x 20hrs, providing 1800kcal, 90g protein, 1500ml total volume. Increased kcal and prot needs due to hypermetabolic state - sepsis, PNA per ER report. Expected Outcomes/Goals Expected Outcomes/Goals 1. Pt to meet at least 100% of estimated nutritinoal needs on tube feeding with tolerance .
--- NOTE | 2016-12-18 09:56 | General Progress Note ---
Subjective - Review of Systems Events since last encounter: patient confused c/o weakness denies pain Subjective: awake confused nad Objective - Results Result Diagrams: 12/18/16 05:35 12/18/16 05:35 Recent Labs: Laboratory Last Values WBC 11.4 Th/cmm (4.8-10.8) H 12/18/16 05:35 RBC 3.27 Mil/cmm (3.80-5.20) L 12/18/16 05:35 Hgb 10.1 gm/dL (12-16) L 12/18/16 05:35 Hct 30.3 % (41.0-60) L D 12/18/16 05:35 MCV 92.6 fl (81-100) 12/18/16 05:35 MCH 31.0 pg (27.0-31.0) 12/18/16 05:35 MCHC Differential 33.4 pg (28.0-36.0) 12/18/16 05:35 RDW 15.5 % (11.5-20.0) 12/18/16 05:35 Plt Count 256 Th/cmm (150-400) D 12/18/16 05:35 MPV 9.3 fl 12/18/16 05:35 Neutrophils % 69.4 % (40.0-80.0) 12/18/16 05:35 Band Neutrophils % 4 % (0-10) 12/14/16 18:03 Lymphocytes % 17.5 % (20.0-50.0) L 12/18/16 05:35 Monocytes % 9.9 % (2.0-10.0) 12/18/16 05:35 Eosinophils % 2.9 % (0.0-5.0) 12/18/16 05:35 Basophils % 0.3 % (0.0-2.0) 12/18/16 05:35 Neutrophils (Manual) 80 % (40-80) 12/14/16 18:03 Lymphocytes 13 % (20-50) L 12/14/16 18:03 Monocytes 3 % (2-10) 12/14/16 18:03 Eosinophils 1 % (0-5) 12/14/16 05:20 Platelet Estimate ADEQUATE (NORMAL) 12/14/16 18:03 PT 10.3 SECONDS (9.5-11.5) 12/18/16 05:35 INR 0.99 (0.5-1.4) 12/18/16 05:35 PTT (Actin FS) 22.0 SECONDS (26.0-38.0) L 12/12/16 21:56 Sodium 144 mEq/L (136-145) 12/18/16 05:35 Potassium 3.4 mEq/L (3.5-5.1) L 12/18/16 05:35 Chloride 111 mEq/L (98-107) H 12/18/16 05:35 Carbon Dioxide 27.6 mEq/L (21.0-31.0) 12/18/16 05:35 Anion Gap 8.8 (7.0-16.0) 12/18/16 05:35 BUN 37 mg/dL (7-25) H 12/18/16 05:35 Creatinine 0.8 mg/dL (0.6-1.2) 12/18/16 05:35 Est GFR ( Amer) TNP 12/18/16 05:35 Est GFR (Non-Af Amer) TNP 12/18/16 05:35 BUN/Creatinine Ratio 46.3 12/18/16 05:35 Glucose 151 mg/dL (70-105) H 12/18/16 05:35 POC Glucose 164 MG/DL (70 - 105) H 12/18/16 05:35 Hemoglobin A1c % 7.3 % (4.0-6.0) H 12/14/16 05:20 Whole Bld Lactic Acid 1.82 mmol/L (0.60-1.99) 12/12/16 21:56 Calcium 8.1 mg/dL (8.6-10.3) L 12/18/16 05:35 Magnesium 2.1 mg/dL (1.9-2.7) 12/18/16 05:35 Total Bilirubin 0.4 mg/dL (0.3-1.0) 12/18/16 05:35 AST 19 U/L (13-39) 12/18/16 05:35 ALT 21 U/L (7-52) 12/18/16 05:35 Alkaline Phosphatase 57 U/L (34-104) 12/18/16 05:35 Creatine Kinase < 10 U/L (30-223) L 12/12/16 21:36 Troponin I 0.04 ng/mL (0.01-0.05) 12/12/16 21:56 B-Natriuretic Peptide 440.0 pg/mL (5.0-100.0) H 12/12/16 21:56 Total Protein 5.9 gm/dL (6.0-8.3) L 12/18/16 05:35 Albumin 2.2 gm/dL (3.7-5.3) L 12/18/16 05:35 Globulin 3.7 gm/dL 12/18/16 05:35 Albumin/Globulin Ratio 0.6 (1.0-1.8) L 12/18/16 05:35 Triglycerides 215 mg/dL (<150) H 12/12/16 21:36 Cholesterol 145 mg/dL (<200) 12/12/16 21:36 LDL Cholesterol Direct 87 mg/dL (75-193) 12/12/16 21:36 HDL Cholesterol 36 mg/dL (23-92) 12/12/16 21:36 Urine Source MIDSTREAM 12/12/16 23:15 Urine Color YELLOW 12/12/16 23:15 Urine Clarity CLOUDY (CLEAR) H 12/12/16 23:15 Urine pH 6.5 (4.6 - 8.0) 12/12/16 23:15 Ur Specific [place] 1.010 (1.005-1.030) 12/12/16 23:15 Urine Protein 100 mg/dL (NEGATIVE) H 12/12/16 23:15 Urine Glucose (UA) NEGATIVE mg/dL (NEGATIVE) 12/12/16 23:15 Urine Ketones NEGATIVE mg/dL (NEGATIVE) 12/12/16 23:15 Urine Blood TRACE (NEGATIVE) 12/12/16 23:15 Urine Nitrate POSITIVE (NEGATIVE) H 12/12/16 23:15 Urine Bilirubin NEGATIVE (NEGATIVE) 12/12/16 23:15 Urine Urobilinogen 0.2 E.U./dL (0.2 - 1.0) 12/12/16 23:15 Ur Leukocyte Esterase LARGE (NEGATIVE) H 12/12/16 23:15 Urine RBC 2-5 /hpf (0-5) 12/12/16 23:15 Urine WBC >100 /hpf (0-5) H 12/12/16 23:15 Ur Epithelial Cells MODERATE /lpf (FEW) 12/12/16 23:15 Urine Bacteria MANY /hpf (NONE SEEN) 12/12/16 23:15 Blood Type O POSITIVE 12/16/16 11:34 Antibody Screen NEGATIVE 12/16/16 11:34 Crossmatch See Detail 12/16/16 11:34 - Physical Exam Vitals and I&O: Vital Signs Temp 98.0 F 12/18/16 07:51 Pulse 90 12/18/16 07:51 Resp 19 12/18/16 07:51 BP 164/73 12/18/16 07:51 Pulse Ox 98 12/18/16 07:51 Intake & Output 12/17/16 12/18/16 12/18/16 18:59 06:59 18:59 Intake Total 400 511.667 Output Total 1125 950 Balance -725 -438.333 Weight (lbs) 110.268 kg 110.813 kg Intake: Intake, IV Amount 50 511.667 D5-0.9%Ns 1,000 ml @ 50 360 mls/hr IV .Q20H [facility] Rx#: [id number] Piperacillin Sodium/ 50 100 Tazobact 3.375 gm In Sodium Chloride 0.9% 50 ml @ 100 mls/hr IV Q8HRT [facility] Rx#:[id number] cefTRIAXone 1 gm In 51.667 Sodium Chloride 0.9% 50 ml @ 100 mls/hr IV Q24HR [facility] Rx#:[id number] Tube Feeding 150 Other 200 Output: Urine 1125 950 Other: # Bowel Movements 1 1 Stool Characteristics Soft Active Medications: Current Medications Acetaminophen (Tylenol Children) 320 mg GT Q4HR PRN PRN Reason: TEMP >100F Stop: 02/11/17 01:25 Last Admin: 12/16/16 09:40 Dose: 320 mg Acetaminophen (Tylenol Children) 320 mg PO Q4HR PRN PRN Reason: Pain (Mild) Stop: 02/11/17 01:25 Last Admin: 12/14/16 17:47 Dose: 320 mg Albuterol/Ipratropium (Duoneb Neb) 3 ml HHN Q2HR PRN PRN Reason: Shortness of Breath or Wheeze Stop: 02/11/17 01:25 Albuterol/Ipratropium (Duoneb Neb) 3 ml HHN Q4HRT [facility] Stop: 02/11/17 02:59 Last Admin: 12/18/16 07:26 Dose: 3 ml Amlodipine Besylate (Norvasc) 5 mg GT DAILY [facility]O Stop: 02/11/17 08:59 Last Admin: 12/17/16 09:46 Dose: 5 mg Carvedilol (Coreg) 12.5 mg GT Q12HR [facility] Stop: 02/11/17 08:59 Last Admin: 12/17/16 21:04 Dose: Not Given Hydralazine HCl (Apresoline 20 Mg/Ml) 10 mg IV Q6HR PRN PRN Reason: DBP ABOVE 90/SBP ABOBE 160 Stop: 02/15/17 16:42 Last Admin: 12/17/16 17:48 Dose: 10 mg Ceftriaxone Sodium 1 gm/ (Sodium Chloride) 50 mls @ 100 mls/hr IV Q24HR [facility] Stop: 02/11/17 02:59 Last Infusion: 12/18/16 06:28 Dose: Infused Dextrose/Sodium Chloride (D5-0.9%Ns) 1,000 mls @ 50 mls/hr IV .Q20H [facility] Stop: 02/12/17 21:44 Last Infusion: 12/18/16 06:27 Dose: 50 mls/hr Piperacillin Sod/Tazobactam (Sod 3.375 gm/ Sodium Chloride) 50 mls @ 100 mls/ hr IV Q8HRT [facility] Stop: 02/15/17 14:59 Last Infusion: 12/18/16 06:28 Dose: Infused Insulin Aspart (Novolog Insulin Sliding Scale) 0 units SUBQ Q6HR [facility] PRN Reason: Protocol Stop: 02/11/17 05:59 Last Admin: 12/18/16 05:39 Dose: Not Given Insulin Detemir (Levemir Insulin) 10 units SUBQ Q12HR [facility] Stop: 02/11/17 08:59 Last Admin: 12/17/16 21:49 Dose: Not Given Lactobacillus Rhamnosus (Culturelle) 1 each PO DAILY [facility] Stop: 02/12/17 08:59 Last Admin: 12/17/16 09:44 Dose: 1 each Levetiracetam (Keppra) 1,000 mg GT Q12HR [facility] Stop: 02/11/17 08:59 Last Admin: 12/17/16 21:03 Dose: Not Given Magnesium Hydroxide (Milk Of Magnesia) 30 ml PO TID PRN PRN Reason: Constipation Stop: 02/14/17 14:07 Last Admin: 12/16/16 14:41 Dose: 30 ml Miscellaneous (Probiotic Screen) 1 ea MC PRN PRN PRN Reason: PROTOCOL Stop: 02/11/17 14:59 Morphine Sulfate (Morphine) 2 mg IVP Q4HR PRN PRN Reason: Severe Pain Stop: 02/14/17 14:52 Last Admin: 12/18/16 05:42 Dose: 2 mg Pantoprazole Sodium (Protonix) 40 mg GT QAM [facility] Stop: 02/11/17 08:59 Last Admin: 12/17/16 09:44 Dose: 40 mg Phenytoin (Dilantin) 100 mg GT BID [facility] Stop: 02/11/17 08:59 Last Admin: 12/17/16 16:27 Dose: Not Given General: Alert, Other (confused) HEENT: Atraumatic Cardiovascular: Regular rate Abdomen: Bowel sounds, Soft Extremities: Pulses Assessment/Plan - Assessment Assessment: sepsis poss sepsis syndrome anemia pneumonia myocardiac ischemia hyponatremia arthritis hx dysphagia hx gt status hx copd hx sleep apnea - Plan Plan: ivantibiotics iv fluid cpm Nutritional Asmnt/Malnutr-PDOC - Dietary Evaluation Malnutrition Findings (Please click <Entered> for more info): Nutritional Asmnt/Malnutrition Start: 12/13/16 15: 20 Text: Status: Complete Freq: Document 12/13/16 15:21 GSUN (Rec: 12/13/16 15:43 [email or web address] [email or web address]) Nutritional Asmnt/Malnutrition Patient General Information Nutritional Screening High Risk Screening Diagnosis ER report: [place], sepsis, PNA, dehydration, anemia, leykocytosis, weakness Pertinent Medical Hx/Surgical Hx ER report: HTN, DM, asthma/ COPD, dyslipidemia, PUD/GERD, arthritis Subjective Information 76 year old female from SNF. Pt followed medical writer with eyes, did not provide any nutrition hx, non-verbal during visit. Observed tube feeding infusing as ordered. Confirmed tube feeding order and on/off time with GREGORIO Lozano RN stated pt tolerating well since adm. Pt appeared mobidly obese. Unable to obtain CBW due to bedscale imporperly calibrated. Current Diet Order/ Nutrition Support Diabetisource 65ml/hr x 20hrs, providing 1560kcal, 78g protein Pertinent Medications D5-0.9%ns, Novolog, Levemir, Culturelle, Protonix, Dilatin Pertinent Labs 12/12: glucose 151H, triglycerides 215H, BUN 59H POC glucose 169H, 186H Nutritional Hx/Data Height 1.55 m Height (Calculated Centimeters) 154.9 Current Weight (lbs) 100.244 kg Weight (Calculated Kilograms) 100.2 Weight (Calculated Grams) 942152.9 [place] Body Weight 105 Weight Status Morbidly Obese GI Symptoms Food Allergies No Usual diet at home [facility] SNF: glucerna 1.2 at 60ml/hr x 20hrs Skin Integrity/Comment: [place] 13. Left and right buttocks reddened. Estimated Nutritional Goals BEE in Kcals: Adj wt of IBW Calories/Kcals/Kg AdjBW 131.5lb/59.8kg (to 211lb adm weight 12/12/16) Kcals Calculated 1794-2093kcal (30-35kcal/kg) Protein: Adj wt of IBW Protein Calculated 72-90g (1.2-1.5g/kg) Fluid: ml 1794-2093ml (1ml/kcal) Nutritional Problem 1. Problem Problem Increased kcal and prot needs related to Etiology hypermatbolic state aeb Signs/Symptoms: PNA and sepsis per ER report Malnutrition Related to Morbid Obesity Malnutrition related to morbid obesity BMI> or equal to 40 Query Text:(Any 1 Criteria met) Malnutrition related to morbid obesity Yes Intervention/Recommendation Comments 1. Recommend increasing Diabetisource to 75ml/hr x 20hrs, providing 1800kcal, 90g protein, 1500ml total volume. Increased kcal and prot needs due to hypermetabolic state - sepsis, PNA per ER report. Expected Outcomes/Goals Expected Outcomes/Goals 1. Pt to meet at least 100% of estimated nutritinoal needs on tube feeding with tolerance .
--- NOTE | 2016-12-18 16:05 | Operative Report ---
DATE OF SURGERY: 12/18/2016 PROCEDURE: Percutaneous endoscopic gastrostomy tube placement. INDICATION FOR PROCEDURE: The patient with a G-tube that has migrated to the subcutaneous tissue, might be hanging on the gastric wall. This was done to remove it and place a new one hopeful through the same hole. CONSENT: Informed consent was obtained from the patient's son after planning benefits and risks including infection, bleeding, perforation, . ANESTHESIA USED: Propofol. PREOPERATIVE DIAGNOSES: 1. Malfunctioning G-tube. 2. Dysphagia. POSTOPERATIVE DIAGNOSES: 1. Malfunctioning G-tube, status post removal. 2. Dysphagia, status post new percutaneous endoscopic gastrostomy tube placement. DESCRIPTION OF PROCEDURE: The patient was placed on her back with head tilted to the side and flexed forward. Upper Olympus endoscope was introduced into the mouth and advanced to the esophagus, which was intubated under direct visualization. Esophageal mucosa was examined on the way down to essentially normal. Scope was advanced to the stomach where the gastric mucosa was examined and showed gastritis. The site of the G-tube showed significant irritation. There was a bulge on the mucosa, but the tube was not into the stomach and there was some ooze from the tube to the stomach. Scope was advanced through the pylorus to the duodenum where the bulb and second part were examined. They were both normal. Scope was then withdrawn to the stomach and retroflexed to examine the cardia and fundus. It did not show any other abnormality. Scope was then straightened. The old G-tube was removed using traction method, then the wire was introduced to the hole and it went easily to the stomach, then it was surrounded by the snare and scope was then withdrawn with the snare holding the wire. A size 20 G-tube was connected to the wire, then the G-tube was pulled out of the abdomen using standard pull technique. There was no need for dilation or new cut. The old site was used because if we do not do this, then it would have been open for long time, it would have formed gastrocutaneous fistula. RECOMMENDATIONS: 1. Continue Rocephin. 2. Resume feeding. Thank you, Dr. Galvan for allowing me to participate in the care of the patient. If you have any further questions, please let me know. JOB# [id number]
[2016-12-18] MEDS: Acetaminophen 160 MG/5 ML UDC GT PRN (20:49)
--- NOTE | 2016-12-18 21:02 | Consultation ---
DATE OF CONSULTATION: 12/17/2016 REASON FOR CONSULTATION: Migrating G-tube. HISTORY OF PRESENT ILLNESS: Consult obtained to discuss with Dr. Galvan for this 76-year-old with history of COPD, dementia, hyperlipidemia, arthritis, diabetes, hypertension, and dysphagia, who was transferred here for sepsis, found to have UTI, found to have ____. Workup showed a G-tube that migrated to the subcutaneous tissue. GI consult was called in for further evaluation. Unfortunately, this morning, she communicated with the son, but she complained of abdominal pain. PAST MEDICAL HISTORY: Hypertension, diabetes, COPD, hyperlipidemia, and dysphagia. PAST SURGICAL HISTORY: Not known. SOCIAL HISTORY: Nonsmoker, nonalcoholic, no IV drug abuser. FAMILY HISTORY: Noncontributory. ALLERGIES: No known drug allergy. REVIEW OF SYSTEMS: Complains of abdominal pain. MEDICATIONS: Amlodipine, Catapres, carvedilol, insulin, ipratropium, lansoprazole, levetiracetam, melatonin, nitrofurantoin, omeprazole, Dilantin, Deltasone, Tylenol. PHYSICAL EXAMINATION: GENERAL: The patient is awake, oriented to self, responsive, [id number] distress. VITAL SIGNS: Blood pressure is 171/61, heart rate 76, respiratory rate 18, and temperature is 96.8. HEAD AND NECK: Pupils are reactive to light. Extraocular muscles could not be tested. Oral cavity, dry mucous membrane. NECK: Supple. No jugular venous distention. No carotid bruit or lymph nodes. CHEST: Good respiratory movements. LUNGS: Showed bilateral rhonchi. CARDIOVASCULAR SYSTEM: Regular rate and rhythm. No murmur or gallop. ABDOMEN: Obese, soft. Positive bowel sound. Mild epigastric tenderness. EXTREMITIES: Lower extremities, no edema. CENTRAL NERVOUS SYSTEM: Unable to evaluate. LABORATORY DATA: White count 11.9, H and H 8.6 and 25.6 with platelets of 197. CAT scan showed [id number] bilateral hydronephrosis, G-tube malpositioned over the distal aspect along the subcutaneous tissue of the anterior abdominal wall just adjacent to the wall of the stomach, fecal impaction, diverticulosis, perinephric inflammation. IMPRESSION: A 76-year-old with malfunctioning G-tube and fecal impaction. ASSESSMENT AND PLAN: 1. Malfunctioning G-tube. This needs to be changed, I am afraid if I pulled it out now and not able to put another one in, so discussed with the son. We will do an EGD tomorrow, remove it endoscopically under vision. Then at that time, we will put a wire, we can use it to use the same hole if possible. If not, then we will have to put a new hole, which will ____ at risk of gastrocutaneous fistula. So, meanwhile keep the patient n.p.o., no medication and nothing per G-tube and then endoscopy and change of G-tube in the morning. 2. Fecal impaction, this will be dealt with once the new tube is in place, then we can start giving medications, laxative, mag citrate, mineral oil, etc. and deal with the fecal impaction. Other medical problems such as diabetes, hypertension, COPD, dementia, etc., as per Dr. Galvan. Thank you, Dr. Galvan for allowing me to participate in the care of the patient. If you have any further questions, please let me know. JOB# [id number]
--- NOTE | 2016-12-18 23:36 | Infectious Disease Prog Note ---
Infectious Disease Subjective - Review of Systems Service Date: 12/18/16 Subjective: renal us showed b/l hydronephrosis. There is some left breast swelling extending ot the left abdominal wall. Infectious Disease Objective - Results Result Diagrams: 12/18/16 05:35 12/18/16 05:35 Recent Labs: Laboratory Last Values WBC 11.4 Th/cmm (4.8-10.8) H 12/18/16 05:35 RBC 3.27 Mil/cmm (3.80-5.20) L 12/18/16 05:35 Hgb 10.1 gm/dL (12-16) L 12/18/16 05:35 Hct 30.3 % (41.0-60) L D 12/18/16 05:35 MCV 92.6 fl (81-100) 12/18/16 05:35 MCH 31.0 pg (27.0-31.0) 12/18/16 05:35 MCHC Differential 33.4 pg (28.0-36.0) 12/18/16 05:35 RDW 15.5 % (11.5-20.0) 12/18/16 05:35 Plt Count 256 Th/cmm (150-400) D 12/18/16 05:35 MPV 9.3 fl 12/18/16 05:35 Neutrophils % 69.4 % (40.0-80.0) 12/18/16 05:35 Band Neutrophils % 4 % (0-10) 12/14/16 18:03 Lymphocytes % 17.5 % (20.0-50.0) L 12/18/16 05:35 Monocytes % 9.9 % (2.0-10.0) 12/18/16 05:35 Eosinophils % 2.9 % (0.0-5.0) 12/18/16 05:35 Basophils % 0.3 % (0.0-2.0) 12/18/16 05:35 Neutrophils (Manual) 80 % (40-80) 12/14/16 18:03 Lymphocytes 13 % (20-50) L 12/14/16 18:03 Monocytes 3 % (2-10) 12/14/16 18:03 Eosinophils 1 % (0-5) 12/14/16 05:20 Platelet Estimate ADEQUATE (NORMAL) 12/14/16 18:03 PT 10.3 SECONDS (9.5-11.5) 12/18/16 05:35 INR 0.99 (0.5-1.4) 12/18/16 05:35 PTT (Actin FS) 22.0 SECONDS (26.0-38.0) L 12/12/16 21:56 Sodium 144 mEq/L (136-145) 12/18/16 05:35 Potassium 3.4 mEq/L (3.5-5.1) L 12/18/16 05:35 Chloride 111 mEq/L (98-107) H 12/18/16 05:35 Carbon Dioxide 27.6 mEq/L (21.0-31.0) 12/18/16 05:35 Anion Gap 8.8 (7.0-16.0) 12/18/16 05:35 BUN 37 mg/dL (7-25) H 12/18/16 05:35 Creatinine 0.8 mg/dL (0.6-1.2) 12/18/16 05:35 Est GFR ( Amer) TNP 12/18/16 05:35 Est GFR (Non-Af Amer) TNP 12/18/16 05:35 BUN/Creatinine Ratio 46.3 12/18/16 05:35 Glucose 151 mg/dL (70-105) H 12/18/16 05:35 POC Glucose 209 MG/DL (70 - 105) H 12/18/16 20:55 Hemoglobin A1c % 7.3 % (4.0-6.0) H 12/14/16 05:20 Whole Bld Lactic Acid 1.82 mmol/L (0.60-1.99) 12/12/16 21:56 Calcium 8.1 mg/dL (8.6-10.3) L 12/18/16 05:35 Magnesium 2.1 mg/dL (1.9-2.7) 12/18/16 05:35 Total Bilirubin 0.4 mg/dL (0.3-1.0) 12/18/16 05:35 AST 19 U/L (13-39) 12/18/16 05:35 ALT 21 U/L (7-52) 12/18/16 05:35 Alkaline Phosphatase 57 U/L (34-104) 12/18/16 05:35 Creatine Kinase < 10 U/L (30-223) L 12/12/16 21:36 Troponin I 0.04 ng/mL (0.01-0.05) 12/12/16 21:56 B-Natriuretic Peptide 440.0 pg/mL (5.0-100.0) H 12/12/16 21:56 Total Protein 5.9 gm/dL (6.0-8.3) L 12/18/16 05:35 Albumin 2.2 gm/dL (3.7-5.3) L 12/18/16 05:35 Globulin 3.7 gm/dL 12/18/16 05:35 Albumin/Globulin Ratio 0.6 (1.0-1.8) L 12/18/16 05:35 Triglycerides 215 mg/dL (<150) H 12/12/16 21:36 Cholesterol 145 mg/dL (<200) 12/12/16 21:36 LDL Cholesterol Direct 87 mg/dL (75-193) 12/12/16 21:36 HDL Cholesterol 36 mg/dL (23-92) 12/12/16 21:36 Urine Source MIDSTREAM 12/12/16 23:15 Urine Color YELLOW 12/12/16 23:15 Urine Clarity CLOUDY (CLEAR) H 12/12/16 23:15 Urine pH 6.5 (4.6 - 8.0) 12/12/16 23:15 Ur Specific [place] 1.010 (1.005-1.030) 12/12/16 23:15 Urine Protein 100 mg/dL (NEGATIVE) H 12/12/16 23:15 Urine Glucose (UA) NEGATIVE mg/dL (NEGATIVE) 12/12/16 23:15 Urine Ketones NEGATIVE mg/dL (NEGATIVE) 12/12/16 23:15 Urine Blood TRACE (NEGATIVE) 12/12/16 23:15 Urine Nitrate POSITIVE (NEGATIVE) H 12/12/16 23:15 Urine Bilirubin NEGATIVE (NEGATIVE) 12/12/16 23:15 Urine Urobilinogen 0.2 E.U./dL (0.2 - 1.0) 12/12/16 23:15 Ur Leukocyte Esterase LARGE (NEGATIVE) H 12/12/16 23:15 Urine RBC 2-5 /hpf (0-5) 12/12/16 23:15 Urine WBC >100 /hpf (0-5) H 12/12/16 23:15 Ur Epithelial Cells MODERATE /lpf (FEW) 12/12/16 23:15 Urine Bacteria MANY /hpf (NONE SEEN) 12/12/16 23:15 Blood Type O POSITIVE 12/16/16 11:34 Antibody Screen NEGATIVE 12/16/16 11:34 Crossmatch See Detail 12/16/16 11:34 - Physical Exam Vitals and I&O: Vital Signs Temp 97.5 F 12/18/16 20:00 Pulse 84 12/18/16 22:30 Resp 20 12/18/16 22:30 BP 157/48 12/18/16 20:44 Pulse Ox 97 12/18/16 22:30 Intake & Output 12/18/16 12/18/16 12/19/16 06:59 18:59 06:59 Intake Total 511.667 850 Output Total 950 700 Balance -438.333 150 Weight (lbs) 110.813 kg 110.813 kg Intake: Intake, IV Amount 511.667 50 D5-0.9%Ns 1,000 ml @ 50 360 mls/hr IV .Q20H [facility] Rx#: [id number] Piperacillin Sodium/ 100 50 Tazobact 3.375 gm In Sodium Chloride 0.9% 50 ml @ 100 mls/hr IV Q8HRT [facility] Rx#:[id number] cefTRIAXone 1 gm In 51.667 Sodium Chloride 0.9% 50 ml @ 100 mls/hr IV Q24HR [facility] Rx#:[id number] Oral 0 Tube Feeding 600 Other 200 Output: Urine 950 700 Other: # Bowel Movements 1 0 Stool Characteristics Soft Formed Active Medications: Current Medications Acetaminophen (Tylenol Children) 320 mg GT Q4HR PRN PRN Reason: TEMP >100F Stop: 02/11/17 01:25 Last Admin: 12/18/16 20:49 Dose: 320 mg Acetaminophen (Tylenol Children) 320 mg PO Q4HR PRN PRN Reason: Pain (Mild) Stop: 02/11/17 01:25 Last Admin: 12/14/16 17:47 Dose: 320 mg Albuterol/Ipratropium (Duoneb Neb) 3 ml HHN Q2HR PRN PRN Reason: Shortness of Breath or Wheeze Stop: 02/11/17 01:25 Albuterol/Ipratropium (Duoneb Neb) 3 ml HHN Q4HRT [facility] Stop: 02/11/17 02:59 Last Admin: 12/18/16 22:36 Dose: 3 ml Amlodipine Besylate (Norvasc) 5 mg GT DAILY [facility] Stop: 02/11/17 08:59 Last Admin: 12/18/16 09:50 Dose: 5 mg Carvedilol (Coreg) 12.5 mg GT Q12HR [facility] Stop: 02/11/17 08:59 Last Admin: 12/18/16 20:44 Dose: 12.5 mg Hydralazine HCl (Apresoline 20 Mg/Ml) 10 mg IV Q6HR PRN PRN Reason: DBP ABOVE 90/SBP ABOBE 160 Stop: 02/15/17 16:42 Last Admin: 12/17/16 17:48 Dose: 10 mg Ceftriaxone Sodium 1 gm/ (Sodium Chloride) 50 mls @ 100 mls/hr IV Q24HR [facility] Stop: 02/11/17 02:59 Last Infusion: 12/18/16 06:28 Dose: Infused Dextrose/Sodium Chloride (D5-0.9%Ns) 1,000 mls @ 50 mls/hr IV .Q20H [facility] Stop: 02/12/17 21:44 Last Infusion: 12/18/16 06:27 Dose: 50 mls/hr Piperacillin Sod/Tazobactam (Sod 3.375 gm/ Sodium Chloride) 50 mls @ 100 mls/ hr IV Q8HRT [facility] Stop: 02/15/17 14:59 Last Admin: 12/18/16 22:54 Dose: 100 mls/hr Insulin Aspart (Novolog Insulin Sliding Scale) 0 units SUBQ Q6HR [facility] PRN Reason: Protocol Stop: 02/11/17 05:59 Last Admin: 12/18/16 18:02 Dose: 3 units Insulin Detemir (Levemir Insulin) 10 units SUBQ Q12HR [facility] Stop: 02/11/17 08:59 Last Admin: 12/18/16 20:57 Dose: 10 units Lactobacillus Rhamnosus (Culturelle) 1 each PO DAILY [facility] Stop: 02/12/17 08:59 Last Admin: 12/18/16 09:49 Dose: 1 each Levetiracetam (Keppra) 1,000 mg GT Q12HR [facility] Stop: 02/11/17 08:59 Last Admin: 12/18/16 20:44 Dose: 1,000 mg Magnesium Hydroxide (Milk Of Magnesia) 30 ml PO TID PRN PRN Reason: Constipation Stop: 02/14/17 14:07 Last Admin: 12/16/16 14:41 Dose: 30 ml Miscellaneous (Probiotic Screen) 1 ea MC PRN PRN PRN Reason: PROTOCOL Stop: 02/11/17 14:59 Morphine Sulfate (Morphine) 2 mg IVP Q4HR PRN PRN Reason: Severe Pain Stop: 02/14/17 14:52 Last Admin: 12/18/16 05:42 Dose: 2 mg Pantoprazole Sodium (Protonix) 40 mg GT QAM [facility] Stop: 02/11/17 08:59 Last Admin: 12/18/16 09:49 Dose: 40 mg Phenytoin (Dilantin) 100 mg GT BID [facility] Stop: 02/11/17 08:59 Last Admin: 12/18/16 18:01 Dose: 100 mg General: no acute distress, well developed, well nourished HEENT: atraumatic, normocephalic, PERRLA Neck: supple, no thyromegaly Cardiovascular: S1S2, regular Lungs: clear to auscultation bilaterally, clear to percussion Abdomen: soft, bowel sounds, other (g tube), no tender, no distended, no mass Extremities: edema, no cyanosis, no clubbing Neurological: awake, alert Skin: intact Infectious Disease Assmt/Plan - Assessment Assessment: 1. UTI, Providencia stuartii UTI. likely CRE. 2. DM2. 3. HTN. 4. COPD. 5. CHARLIE. 6. Hyperlipidemia 7. Dementia. - Plan Plan: Patient will need bactrim and urology eval. Nutritional Asmnt/Malnutr-PDOC - Dietary Evaluation Malnutrition Findings (Please click <Entered> for more info): Nutritional Asmnt/Malnutrition Start: 12/13/16 15: 20 Text: Status: Complete Freq: Document 12/13/16 15:21 GSUN (Rec: 12/13/16 15:43 [email or web address] [email or web address]) Nutritional Asmnt/Malnutrition Patient General Information Nutritional Screening High Risk Screening Diagnosis ER report: [place], sepsis, PNA, dehydration, anemia, leykocytosis, weakness Pertinent Medical Hx/Surgical Hx ER report: HTN, DM, asthma/ COPD, dyslipidemia, PUD/GERD, arthritis Subjective Information 76 year old female from SNF. Pt followed marketing writer with eyes, did not provide any nutrition hx, non-verbal during visit. Observed tube feeding infusing as ordered. Confirmed tube feeding order and on/off time with GREGORIO Lozano RN stated pt tolerating well since adm. Pt appeared mobidly obese. Unable to obtain CBW due to bedscale imporperly calibrated. Current Diet Order/ Nutrition Support Diabetisource 65ml/hr x 20hrs, providing 1560kcal, 78g protein Pertinent Medications D5-0.9%ns, Novolog, Levemir, Culturelle, Protonix, Dilatin Pertinent Labs 12/12: glucose 151H, triglycerides 215H, BUN 59H POC glucose 169H, 186H Nutritional Hx/Data Height 1.55 m Height (Calculated Centimeters) 154.9 Current Weight (lbs) 100.244 kg Weight (Calculated Kilograms) 100.2 Weight (Calculated Grams) 321446.9 [place] Body Weight 105 Weight Status Morbidly Obese GI Symptoms Food Allergies No Usual diet at home [facility] SN[facility]: glucerna 1.2 at 60ml/hr x 20hrs Skin Integrity/Comment: [place] 13. Left and right buttocks reddened. Estimated Nutritional Goals BEE in Kcals: Adj wt of IBW Calories/Kcals/Kg AdjBW 131.5lb/59.8kg (to 211lb adm weight 12/12/) Kcals Calculated 1794-2093kcal (30-35kcal/kg) Protein: Adj wt of IBW Protein Calculated 72-90g (1.2-1.5g/kg) Fluid: ml 1794-2093ml (1ml/kcal) Nutritional Problem 1. Problem Problem Increased kcal and prot needs related to Etiology hypermatbolic state aeb Signs/Symptoms: PNA and sepsis per ER report Malnutrition Related to Morbid Obesity Malnutrition related to morbid obesity BMI> or equal to 40 Query Text:(Any 1 Criteria met) Malnutrition related to morbid obesity Yes Intervention/Recommendation Comments 1. Recommend increasing Diabetisource to 75ml/hr x 20hrs, providing 1800kcal, 90g protein, 1500ml total volume. Increased kcal and prot needs due to hypermetabolic state - sepsis, PNA per ER report. Expected Outcomes/Goals Expected Outcomes/Goals 1. Pt to meet at least 100% of estimated nutritinoal needs on tube feeding with tolerance .
--- NOTE | 2016-12-18 23:36 | Infectious Disease Prog Note ---
Infectious Disease Subjective - Review of Systems Service Date: 12/18/16 Subjective: renal us showed b/l hydronephrosis. There is some left breast swelling extending ot the left abdominal wall. Infectious Disease Objective - Results Result Diagrams: 12/18/16 05:35 12/18/16 05:35 Recent Labs: Laboratory Last Values WBC 11.4 Th/cmm (4.8-10.8) H 12/18/16 05:35 RBC 3.27 Mil/cmm (3.80-5.20) L 12/18/16 05:35 Hgb 10.1 gm/dL (12-16) L 12/18/16 05:35 Hct 30.3 % (41.0-60) L D 12/18/16 05:35 MCV 92.6 fl (81-100) 12/18/16 05:35 MCH 31.0 pg (27.0-31.0) 12/18/16 05:35 MCHC Differential 33.4 pg (28.0-36.0) 12/18/16 05:35 RDW 15.5 % (11.5-20.0) 12/18/16 05:35 Plt Count 256 Th/cmm (150-400) D 12/18/16 05:35 MPV 9.3 fl 12/18/16 05:35 Neutrophils % 69.4 % (40.0-80.0) 12/18/16 05:35 Band Neutrophils % 4 % (0-10) 12/14/16 18:03 Lymphocytes % 17.5 % (20.0-50.0) L 12/18/16 05:35 Monocytes % 9.9 % (2.0-10.0) 12/18/16 05:35 Eosinophils % 2.9 % (0.0-5.0) 12/18/16 05:35 Basophils % 0.3 % (0.0-2.0) 12/18/16 05:35 Neutrophils (Manual) 80 % (40-80) 12/14/16 18:03 Lymphocytes 13 % (20-50) L 12/14/16 18:03 Monocytes 3 % (2-10) 12/14/16 18:03 Eosinophils 1 % (0-5) 12/14/16 05:20 Platelet Estimate ADEQUATE (NORMAL) 12/14/16 18:03 PT 10.3 SECONDS (9.5-11.5) 12/18/16 05:35 INR 0.99 (0.5-1.4) 12/18/16 05:35 PTT (Actin FS) 22.0 SECONDS (26.0-38.0) L 12/12/16 21:56 Sodium 144 mEq/L (136-145) 12/18/16 05:35 Potassium 3.4 mEq/L (3.5-5.1) L 12/18/16 05:35 Chloride 111 mEq/L (98-107) H 12/18/16 05:35 Carbon Dioxide 27.6 mEq/L (21.0-31.0) 12/18/16 05:35 Anion Gap 8.8 (7.0-16.0) 12/18/16 05:35 BUN 37 mg/dL (7-25) H 12/18/16 05:35 Creatinine 0.8 mg/dL (0.6-1.2) 12/18/16 05:35 Est GFR ( Amer) TNP 12/18/16 05:35 Est GFR (Non-Af Amer) TNP 12/18/16 05:35 BUN/Creatinine Ratio 46.3 12/18/16 05:35 Glucose 151 mg/dL (70-105) H 12/18/16 05:35 POC Glucose 209 MG/DL (70 - 105) H 12/18/16 20:55 Hemoglobin A1c % 7.3 % (4.0-6.0) H 12/14/16 05:20 Whole Bld Lactic Acid 1.82 mmol/L (0.60-1.99) 12/12/16 21:56 Calcium 8.1 mg/dL (8.6-10.3) L 12/18/16 05:35 Magnesium 2.1 mg/dL (1.9-2.7) 12/18/16 05:35 Total Bilirubin 0.4 mg/dL (0.3-1.0) 12/18/16 05:35 AST 19 U/L (13-39) 12/18/16 05:35 ALT 21 U/L (7-52) 12/18/16 05:35 Alkaline Phosphatase 57 U/L (34-104) 12/18/16 05:35 Creatine Kinase < 10 U/L (30-223) L 12/12/16 21:36 Troponin I 0.04 ng/mL (0.01-0.05) 12/12/16 21:56 B-Natriuretic Peptide 440.0 pg/mL (5.0-100.0) H 12/12/16 21:56 Total Protein 5.9 gm/dL (6.0-8.3) L 12/18/16 05:35 Albumin 2.2 gm/dL (3.7-5.3) L 12/18/16 05:35 Globulin 3.7 gm/dL 12/18/16 05:35 Albumin/Globulin Ratio 0.6 (1.0-1.8) L 12/18/16 05:35 Triglycerides 215 mg/dL (<150) H 12/12/16 21:36 Cholesterol 145 mg/dL (<200) 12/12/16 21:36 LDL Cholesterol Direct 87 mg/dL (75-193) 12/12/16 21:36 HDL Cholesterol 36 mg/dL (23-92) 12/12/16 21:36 Urine Source MIDSTREAM 12/12/16 23:15 Urine Color YELLOW 12/12/16 23:15 Urine Clarity CLOUDY (CLEAR) H 12/12/16 23:15 Urine pH 6.5 (4.6 - 8.0) 12/12/16 23:15 Ur Specific [place] 1.010 (1.005-1.030) 12/12/16 23:15 Urine Protein 100 mg/dL (NEGATIVE) H 12/12/16 23:15 Urine Glucose (UA) NEGATIVE mg/dL (NEGATIVE) 12/12/16 23:15 Urine Ketones NEGATIVE mg/dL (NEGATIVE) 12/12/16 23:15 Urine Blood TRACE (NEGATIVE) 12/12/16 23:15 Urine Nitrate POSITIVE (NEGATIVE) H 12/12/16 23:15 Urine Bilirubin NEGATIVE (NEGATIVE) 12/12/16 23:15 Urine Urobilinogen 0.2 E.U./dL (0.2 - 1.0) 12/12/16 23:15 Ur Leukocyte Esterase LARGE (NEGATIVE) H 12/12/16 23:15 Urine RBC 2-5 /hpf (0-5) 12/12/16 23:15 Urine WBC >100 /hpf (0-5) H 12/12/16 23:15 Ur Epithelial Cells MODERATE /lpf (FEW) 12/12/16 23:15 Urine Bacteria MANY /hpf (NONE SEEN) 12/12/16 23:15 Blood Type O POSITIVE 12/16/16 11:34 Antibody Screen NEGATIVE 12/16/16 11:34 Crossmatch See Detail 12/16/16 11:34 - Physical Exam Vitals and I&O: Vital Signs Temp 97.5 F 12/18/16 20:00 Pulse 84 12/18/16 22:30 Resp 20 12/18/16 22:30 BP 157/48 12/18/16 20:44 Pulse Ox 97 12/18/16 22:30 Intake & Output 12/18/16 12/18/16 12/19/16 06:59 18:59 06:59 Intake Total 511.667 850 Output Total 950 700 Balance -438.333 150 Weight (lbs) 110.813 kg 110.813 kg Intake: Intake, IV Amount 511.667 50 D5-0.9%Ns 1,000 ml @ 50 360 mls/hr IV .Q20H [facility] Rx#: [id number] Piperacillin Sodium/ 100 50 Tazobact 3.375 gm In Sodium Chloride 0.9% 50 ml @ 100 mls/hr IV Q8HRT [facility] Rx#:[id number] cefTRIAXone 1 gm In 51.667 Sodium Chloride 0.9% 50 ml @ 100 mls/hr IV Q24HR [facility] Rx#:[id number] Oral 0 Tube Feeding 600 Other 200 Output: Urine 950 700 Other: # Bowel Movements 1 0 Stool Characteristics Soft Formed Active Medications: Current Medications Acetaminophen (Tylenol Children) 320 mg GT Q4HR PRN PRN Reason: TEMP >100F Stop: 02/11/17 01:25 Last Admin: 12/18/16 20:49 Dose: 320 mg Acetaminophen (Tylenol Children) 320 mg PO Q4HR PRN PRN Reason: Pain (Mild) Stop: 02/11/17 01:25 Last Admin: 12/14/16 17:47 Dose: 320 mg Albuterol/Ipratropium (Duoneb Neb) 3 ml HHN Q2HR PRN PRN Reason: Shortness of Breath or Wheeze Stop: 02/11/17 01:25 Albuterol/Ipratropium (Duoneb Neb) 3 ml HHN Q4HRT [facility] Stop: 02/11/17 02:59 Last Admin: 12/18/16 22:36 Dose: 3 ml Amlodipine Besylate (Norvasc) 5 mg GT DAILY [facility] Stop: 02/11/17 08:59 Last Admin: 12/18/16 09:50 Dose: 5 mg Carvedilol (Coreg) 12.5 mg GT Q12HR [facility] Stop: 02/11/17 08:59 Last Admin: 12/18/16 20:44 Dose: 12.5 mg Hydralazine HCl (Apresoline 20 Mg/Ml) 10 mg IV Q6HR PRN PRN Reason: DBP ABOVE 90/SBP ABOBE 160 Stop: 02/15/17 16:42 Last Admin: 12/17/16 17:48 Dose: 10 mg Ceftriaxone Sodium 1 gm/ (Sodium Chloride) 50 mls @ 100 mls/hr IV Q24HR [facility] Stop: 02/11/17 02:59 Last Infusion: 12/18/16 06:28 Dose: Infused Dextrose/Sodium Chloride (D5-0.9%Ns) 1,000 mls @ 50 mls/hr IV .Q20H [facility] Stop: 02/12/17 21:44 Last Infusion: 12/18/16 06:27 Dose: 50 mls/hr Piperacillin Sod/Tazobactam (Sod 3.375 gm/ Sodium Chloride) 50 mls @ 100 mls/ hr IV Q8HRT [facility] Stop: 02/15/17 14:59 Last Admin: 12/18/16 22:54 Dose: 100 mls/hr Insulin Aspart (Novolog Insulin Sliding Scale) 0 units SUBQ Q6HR [facility] PRN Reason: Protocol Stop: 02/11/17 05:59 Last Admin: 12/18/16 18:02 Dose: 3 units Insulin Detemir (Levemir Insulin) 10 units SUBQ Q12HR [facility] Stop: 02/11/17 08:59 Last Admin: 12/18/16 20:57 Dose: 10 units Lactobacillus Rhamnosus (Culturelle) 1 each PO DAILY [facility] Stop: 02/12/17 08:59 Last Admin: 12/18/16 09:49 Dose: 1 each Levetiracetam (Keppra) 1,000 mg GT Q12HR [facility] Stop: 02/11/17 08:59 Last Admin: 12/18/16 20:44 Dose: 1,000 mg Magnesium Hydroxide (Milk Of Magnesia) 30 ml PO TID PRN PRN Reason: Constipation Stop: 02/14/17 14:07 Last Admin: 12/16/16 14:41 Dose: 30 ml Miscellaneous (Probiotic Screen) 1 ea MC PRN PRN PRN Reason: PROTOCOL Stop: 02/11/17 14:59 Morphine Sulfate (Morphine) 2 mg IVP Q4HR PRN PRN Reason: Severe Pain Stop: 02/14/17 14:52 Last Admin: 12/18/16 05:42 Dose: 2 mg Pantoprazole Sodium (Protonix) 40 mg GT QAM [facility] Stop: 02/11/17 08:59 Last Admin: 12/18/16 09:49 Dose: 40 mg Phenytoin (Dilantin) 100 mg GT BID [facility] Stop: 02/11/17 08:59 Last Admin: 12/18/16 18:01 Dose: 100 mg General: no acute distress, well developed, well nourished HEENT: atraumatic, normocephalic, PERRLA Neck: supple, no thyromegaly Cardiovascular: S1S2, regular Lungs: clear to auscultation bilaterally, clear to percussion Abdomen: soft, bowel sounds, other (g tube), no tender, no distended, no mass Extremities: edema, no cyanosis, no clubbing Neurological: awake, alert Skin: intact Infectious Disease Assmt/Plan - Assessment Assessment: 1. UTI, Providencia stuartii UTI. likely CRE. 2. DM2. 3. HTN. 4. COPD. 5. CHARLIE. 6. Hyperlipidemia 7. Dementia. - Plan Plan: Patient will need bactrim and urology eval. Nutritional Asmnt/Malnutr-PDOC - Dietary Evaluation Malnutrition Findings (Please click <Entered> for more info): Nutritional Asmnt/Malnutrition Start: 12/13/16 15: 20 Text: Status: Complete Freq: Document 12/13/16 15:21 GSUN (Rec: 12/13/16 15:43 GSUN [email or web address]) Nutritional Asmnt/Malnutrition Patient General Information Nutritional Screening High Risk Screening Diagnosis ER report: AR, sepsis, PNA, dehydration, anemia, leykocytosis, weakness Pertinent Medical Hx/Surgical Hx ER report: HTN, DM, asthma/ COPD, dyslipidemia, PUD/GERD, arthritis Subjective Information 76 year old female from SNF. Pt followed senior medical writer with eyes, did not provide any nutrition hx, non-verbal during visit. Observed tube feeding infusing as ordered. Confirmed tube feeding order and on/off time with GREGORIO Lozano RN stated pt tolerating well since adm. Pt appeared mobidly obese. Unable to obtain CBW due to bedscale imporperly calibrated. Current Diet Order/ Nutrition Support Diabetisource 65ml/hr x 20hrs, providing 1560kcal, 78g protein Pertinent Medications D5-0.9%ns, Novolog, Levemir, Culturelle, Protonix, Dilatin Pertinent Labs 12/12: glucose 151H, triglycerides 215H, BUN 59H POC glucose 169H, 186H Nutritional Hx/Data Height 1.55 m Height (Calculated Centimeters) 154.9 Current Weight (lbs) 100.244 kg Weight (Calculated Kilograms) 100.2 Weight (Calculated Grams) 825296.9 [place] Body Weight 105 Weight Status Morbidly Obese GI Symptoms Food Allergies No Usual diet at home [facility] SNF: glucerna 1.2 at 60ml/hr x 20hrs Skin Integrity/Comment: [place] 13. Left and right buttocks reddened. Estimated Nutritional Goals BEE in Kcals: Adj wt of IBW Calories/Kcals/Kg AdjBW 131.5lb/59.8kg (to 211lb adm weight 12/12/) Kcals Calculated 1794-2093kcal (30-35kcal/kg) Protein: Adj wt of IBW Protein Calculated 72-90g (1.2-1.5g/kg) Fluid: ml 1794-2093ml (1ml/kcal) Nutritional Problem 1. Problem Problem Increased kcal and prot needs related to Etiology hypermatbolic state aeb Signs/Symptoms: PNA and sepsis per ER report Malnutrition Related to Morbid Obesity Malnutrition related to morbid obesity BMI> or equal to 40 Query Text:(Any 1 Criteria met) Malnutrition related to morbid obesity Yes Intervention/Recommendation Comments 1. Recommend increasing Diabetisource to 75ml/hr x 20hrs, providing 1800kcal, 90g protein, 1500ml total volume. Increased kcal and prot needs due to hypermetabolic state - sepsis, PNA per ER report. Expected Outcomes/Goals Expected Outcomes/Goals 1. Pt to meet at least 100% of estimated nutritinoal needs on tube feeding with tolerance .
--- NOTE | 2016-12-18 23:36 | Infectious Disease Prog Note ---
Infectious Disease Subjective - Review of Systems Service Date: 12/18/16 Subjective: renal us showed b/l hydronephrosis. There is some left breast swelling extending ot the left abdominal wall. Infectious Disease Objective - Results Result Diagrams: 12/18/16 05:35 12/18/16 05:35 Recent Labs: Laboratory Last Values WBC 11.4 Th/cmm (4.8-10.8) H 12/18/16 05:35 RBC 3.27 Mil/cmm (3.80-5.20) L 12/18/16 05:35 Hgb 10.1 gm/dL (12-16) L 12/18/16 05:35 Hct 30.3 % (41.0-60) L D 12/18/16 05:35 MCV 92.6 fl (81-100) 12/18/16 05:35 MCH 31.0 pg (27.0-31.0) 12/18/16 05:35 MCHC Differential 33.4 pg (28.0-36.0) 12/18/16 05:35 RDW 15.5 % (11.5-20.0) 12/18/16 05:35 Plt Count 256 Th/cmm (150-400) D 12/18/16 05:35 MPV 9.3 fl 12/18/16 05:35 Neutrophils % 69.4 % (40.0-80.0) 12/18/16 05:35 Band Neutrophils % 4 % (0-10) 12/14/16 18:03 Lymphocytes % 17.5 % (20.0-50.0) L 12/18/16 05:35 Monocytes % 9.9 % (2.0-10.0) 12/18/16 05:35 Eosinophils % 2.9 % (0.0-5.0) 12/18/16 05:35 Basophils % 0.3 % (0.0-2.0) 12/18/16 05:35 Neutrophils (Manual) 80 % (40-80) 12/14/16 18:03 Lymphocytes 13 % (20-50) L 12/14/16 18:03 Monocytes 3 % (2-10) 12/14/16 18:03 Eosinophils 1 % (0-5) 12/14/16 05:20 Platelet Estimate ADEQUATE (NORMAL) 12/14/16 18:03 PT 10.3 SECONDS (9.5-11.5) 12/18/16 05:35 INR 0.99 (0.5-1.4) 12/18/16 05:35 PTT (Actin FS) 22.0 SECONDS (26.0-38.0) L 12/12/16 21:56 Sodium 144 mEq/L (136-145) 12/18/16 05:35 Potassium 3.4 mEq/L (3.5-5.1) L 12/18/16 05:35 Chloride 111 mEq/L (98-107) H 12/18/16 05:35 Carbon Dioxide 27.6 mEq/L (21.0-31.0) 12/18/16 05:35 Anion Gap 8.8 (7.0-16.0) 12/18/16 05:35 BUN 37 mg/dL (7-25) H 12/18/16 05:35 Creatinine 0.8 mg/dL (0.6-1.2) 12/18/16 05:35 Est GFR ( Amer) TNP 12/18/16 05:35 Est GFR (Non-Af Amer) TNP 12/18/16 05:35 BUN/Creatinine Ratio 46.3 12/18/16 05:35 Glucose 151 mg/dL (70-105) H 12/18/16 05:35 POC Glucose 209 MG/DL (70 - 105) H 12/18/16 20:55 Hemoglobin A1c % 7.3 % (4.0-6.0) H 12/14/16 05:20 Whole Bld Lactic Acid 1.82 mmol/L (0.60-1.99) 12/12/16 21:56 Calcium 8.1 mg/dL (8.6-10.3) L 12/18/16 05:35 Magnesium 2.1 mg/dL (1.9-2.7) 12/18/16 05:35 Total Bilirubin 0.4 mg/dL (0.3-1.0) 12/18/16 05:35 AST 19 U/L (13-39) 12/18/16 05:35 ALT 21 U/L (7-52) 12/18/16 05:35 Alkaline Phosphatase 57 U/L (34-104) 12/18/16 05:35 Creatine Kinase < 10 U/L (30-223) L 12/12/16 21:36 Troponin I 0.04 ng/mL (0.01-0.05) 12/12/16 21:56 B-Natriuretic Peptide 440.0 pg/mL (5.0-100.0) H 12/12/16 21:56 Total Protein 5.9 gm/dL (6.0-8.3) L 12/18/16 05:35 Albumin 2.2 gm/dL (3.7-5.3) L 12/18/16 05:35 Globulin 3.7 gm/dL 12/18/16 05:35 Albumin/Globulin Ratio 0.6 (1.0-1.8) L 12/18/16 05:35 Triglycerides 215 mg/dL (<150) H 12/12/16 21:36 Cholesterol 145 mg/dL (<200) 12/12/16 21:36 LDL Cholesterol Direct 87 mg/dL (75-193) 12/12/16 21:36 HDL Cholesterol 36 mg/dL (23-92) 12/12/16 21:36 Urine Source MIDSTREAM 12/12/16 23:15 Urine Color YELLOW 12/12/16 23:15 Urine Clarity CLOUDY (CLEAR) H 12/12/16 23:15 Urine pH 6.5 (4.6 - 8.0) 12/12/16 23:15 Ur Specific [place] 1.010 (1.005-1.030) 12/12/16 23:15 Urine Protein 100 mg/dL (NEGATIVE) H 12/12/16 23:15 Urine Glucose (UA) NEGATIVE mg/dL (NEGATIVE) 12/12/16 23:15 Urine Ketones NEGATIVE mg/dL (NEGATIVE) 12/12/16 23:15 Urine Blood TRACE (NEGATIVE) 12/12/16 23:15 Urine Nitrate POSITIVE (NEGATIVE) H 12/12/16 23:15 Urine Bilirubin NEGATIVE (NEGATIVE) 12/12/16 23:15 Urine Urobilinogen 0.2 E.U./dL (0.2 - 1.0) 12/12/16 23:15 Ur Leukocyte Esterase LARGE (NEGATIVE) H 12/12/16 23:15 Urine RBC 2-5 /hpf (0-5) 12/12/16 23:15 Urine WBC >100 /hpf (0-5) H 12/12/16 23:15 Ur Epithelial Cells MODERATE /lpf (FEW) 12/12/16 23:15 Urine Bacteria MANY /hpf (NONE SEEN) 12/12/16 23:15 Blood Type O POSITIVE 12/16/16 11:34 Antibody Screen NEGATIVE 12/16/16 11:34 Crossmatch See Detail 12/16/16 11:34 - Physical Exam Vitals and I&O: Vital Signs Temp 97.5 F 12/18/16 20:00 Pulse 84 12/18/16 22:30 Resp 20 12/18/16 22:30 BP 157/48 12/18/16 20:44 Pulse Ox 97 12/18/16 22:30 Intake & Output 12/18/16 12/18/16 12/19/16 06:59 18:59 06:59 Intake Total 511.667 850 Output Total 950 700 Balance -438.333 150 Weight (lbs) 110.813 kg 110.813 kg Intake: Intake, IV Amount 511.667 50 D5-0.9%Ns 1,000 ml @ 50 360 mls/hr IV .Q20H [facility] Rx#: [id number] Piperacillin Sodium/ 100 50 Tazobact 3.375 gm In Sodium Chloride 0.9% 50 ml @ 100 mls/hr IV Q8HRT [facility] Rx#:[id number] cefTRIAXone 1 gm In 51.667 Sodium Chloride 0.9% 50 ml @ 100 mls/hr IV Q24HR [facility] Rx#:[id number] Oral 0 Tube Feeding 600 Other 200 Output: Urine 950 700 Other: # Bowel Movements 1 0 Stool Characteristics Soft Formed Active Medications: Current Medications Acetaminophen (Tylenol Children) 320 mg GT Q4HR PRN PRN Reason: TEMP >100F Stop: 02/11/17 01:25 Last Admin: 12/18/16 20:49 Dose: 320 mg Acetaminophen (Tylenol Children) 320 mg PO Q4HR PRN PRN Reason: Pain (Mild) Stop: 02/11/17 01:25 Last Admin: 12/14/16 17:47 Dose: 320 mg Albuterol/Ipratropium (Duoneb Neb) 3 ml HHN Q2HR PRN PRN Reason: Shortness of Breath or Wheeze Stop: 02/11/17 01:25 Albuterol/Ipratropium (Duoneb Neb) 3 ml HHN Q4HRT [facility] Stop: 02/11/17 02:59 Last Admin: 12/18/16 22:36 Dose: 3 ml Amlodipine Besylate (Norvasc) 5 mg GT DAILY [facility] Stop: 02/11/17 08:59 Last Admin: 12/18/16 09:50 Dose: 5 mg Carvedilol (Coreg) 12.5 mg GT Q12HR PITO Stop: 02/11/17 08:59 Last Admin: 12/18/16 20:44 Dose: 12.5 mg Hydralazine HCl (Apresoline 20 Mg/Ml) 10 mg IV Q6HR PRN PRN Reason: DBP ABOVE 90/SBP ABOBE 160 Stop: 02/15/17 16:42 Last Admin: 12/17/16 17:48 Dose: 10 mg Ceftriaxone Sodium 1 gm/ (Sodium Chloride) 50 mls @ 100 mls/hr IV Q24HR [facility] Stop: 02/11/17 02:59 Last Infusion: 12/18/16 06:28 Dose: Infused Dextrose/Sodium Chloride (D5-0.9%Ns) 1,000 mls @ 50 mls/hr IV .Q20H [facility] Stop: 02/12/17 21:44 Last Infusion: 12/18/16 06:27 Dose: 50 mls/hr Piperacillin Sod/Tazobactam (Sod 3.375 gm/ Sodium Chloride) 50 mls @ 100 mls/ hr IV Q8HRT [facility] Stop: 02/15/17 14:59 Last Admin: 12/18/16 22:54 Dose: 100 mls/hr Insulin Aspart (Novolog Insulin Sliding Scale) 0 units SUBQ Q6HR PITO PRN Reason: Protocol Stop: 02/11/17 05:59 Last Admin: 12/18/16 18:02 Dose: 3 units Insulin Detemir (Levemir Insulin) 10 units SUBQ Q12HR [facility] Stop: 02/11/17 08:59 Last Admin: 12/18/16 20:57 Dose: 10 units Lactobacillus Rhamnosus (Culturelle) 1 each PO DAILY [facility] Stop: 02/12/17 08:59 Last Admin: 12/18/16 09:49 Dose: 1 each Levetiracetam (Keppra) 1,000 mg GT Q12HR [facility] Stop: 02/11/17 08:59 Last Admin: 12/18/16 20:44 Dose: 1,000 mg Magnesium Hydroxide (Milk Of Magnesia) 30 ml PO TID PRN PRN Reason: Constipation Stop: 02/14/17 14:07 Last Admin: 12/16/16 14:41 Dose: 30 ml Miscellaneous (Probiotic Screen) 1 ea MC PRN PRN PRN Reason: PROTOCOL Stop: 02/11/17 14:59 Morphine Sulfate (Morphine) 2 mg IVP Q4HR PRN PRN Reason: Severe Pain Stop: 02/14/17 14:52 Last Admin: 12/18/16 05:42 Dose: 2 mg Pantoprazole Sodium (Protonix) 40 mg GT QAM PITO Stop: 02/11/17 08:59 Last Admin: 12/18/16 09:49 Dose: 40 mg Phenytoin (Dilantin) 100 mg GT BID [facility] Stop: 02/11/17 08:59 Last Admin: 12/18/16 18:01 Dose: 100 mg General: no acute distress, well developed, well nourished HEENT: atraumatic, normocephalic, PERRLA Neck: supple, no thyromegaly Cardiovascular: S1S2, regular Lungs: clear to auscultation bilaterally, clear to percussion Abdomen: soft, bowel sounds, other (g tube), no tender, no distended, no mass Extremities: edema, no cyanosis, no clubbing Neurological: awake, alert Skin: intact Infectious Disease Assmt/Plan - Assessment Assessment: 1. UTI, Providencia stuartii UTI. 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 2. DM2. 3. HTN. 4. COPD. 5. CHARLIE. 6. Hyperlipidemia 7. Dementia. - Plan Plan: Patient will need bactrim and urology eval. Nutritional Asmnt/Malnutr-PDOC - Dietary Evaluation Malnutrition Findings (Please click <Entered> for more info): Nutritional Asmnt/Malnutrition Start: 12/13/16 15: 20 Text: Status: Complete Freq: Document 12/13/16 15:21 GSUN (Rec: 12/13/16 15:43 [email or web address] [email or web address]) Nutritional Asmnt/Malnutrition Patient General Information Nutritional Screening High Risk Screening Diagnosis ER report: [place], sepsis, PNA, dehydration, anemia, leykocytosis, weakness Pertinent Medical Hx/Surgical Hx ER report: HTN, DM, asthma/ COPD, dyslipidemia, PUD/GERD, arthritis Subjective Information 76 year old female from SNF. 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 Observed tube feeding infusing as ordered. Confirmed tube feeding order and on/off time with GREGORIO Lozano RN stated pt tolerating well since adm. Pt appeared mobidly obese. Unable to obtain CBW due to bedscale imporperly calibrated. Current Diet Order/ Nutrition Support Diabetisource 65ml/hr x 20hrs, providing 1560kcal, 78g protein Pertinent Medications D5-0.9%ns, Novolog, Levemir, Culturelle, Protonix, Dilatin Pertinent Labs 12/12: glucose 151H, triglycerides 215H, BUN 59H POC glucose 169H, 186H Nutritional Hx/Data Height 1.55 m Height (Calculated Centimeters) 154.9 Current Weight (lbs) 100.244 kg Weight (Calculated Kilograms) 100.2 Weight (Calculated Grams) 362452.9 [place] Body Weight 105 Weight Status Morbidly Obese GI Symptoms Food Allergies No Usual diet at home [facility] SNF: glucerna 1.2 at 60ml/hr x 20hrs Skin Integrity/Comment: [place] 13. Left and right buttocks reddened. Estimated Nutritional Goals BEE in Kcals: Adj wt of IBW Calories/Kcals/Kg AdjBW 131.5lb/59.8kg (to 211lb adm weight 12/12/) Kcals Calculated 1794-2093kcal (30-35kcal/kg) Protein: Adj wt of IBW Protein Calculated 72-90g (1.2-1.5g/kg) Fluid: ml 1794-2093ml (1ml/kcal) Nutritional Problem 1. Problem Problem Increased kcal and prot needs related to Etiology hypermatbolic state aeb Signs/Symptoms: PNA and sepsis per ER report Malnutrition Related to Morbid Obesity Malnutrition related to morbid obesity BMI> or equal to 40 Query Text:(Any 1 Criteria met) Malnutrition related to morbid obesity Yes Intervention/Recommendation Comments 1. Recommend increasing Diabetisource to 75ml/hr x 20hrs, providing 1800kcal, 90g protein, 1500ml total volume. Increased kcal and prot needs due to hypermetabolic state - sepsis, PNA per ER report. Expected Outcomes/Goals Expected Outcomes/Goals 1. Pt to meet at least 100% of estimated nutritinoal needs on tube feeding with tolerance .
[2016-12-19] MEDS: cefTRIAXone 1 GM in Sodium Chloride 0.9% 50 ML IV SCH (02:47)
[2016-12-19] MEDS: Albuterol/Ipratropium Neb 3 ML AERS HHN SCH ×4 (02:53→15:38)
[2016-12-19] MEDS: D5-0.9%NS 1,000 ML IV SCH (03:03)
[2016-12-19] MEDS: Morphine Sulfate 2 mg/mL 1mL Syr IVP PRN ×2 (03:05→13:11)
[2016-12-19 05:57] LABS: ALB/GLOB RATIO 0.6 (1.0-1.8); ALBUMIN 1.8 gm/dL (3.7-5.3); ALKALINE PHOSPHATASE 60 U/L (34-104); ANION GAP 9.2 (7.0-16.0); BILIRUBIN,TOTAL 0.2 mg/dL (0.3-1.0); BUN - UREA NITROGEN 36 mg/dL (7-25); CALCIUM SERUM 7.7 mg/dL (8.6-10.3); CARBON DIOXIDE 26.2 mEq/L (21.0-31.0); CHLORIDE 112 mEq/L (98-107); CREATININE - SERUM 0.9 mg/dL (0.6-1.2); GLUCOSE 186 mg/dL (70-105); POTASSIUM SERUM 3.4 mEq/L (3.5-5.1); SGOT 18 U/L (13-39); SGPT/ALT 18 U/L (7-52); SODIUM SERUM 144 mEq/L (136-145); TOTAL PROTEIN,SERUM 4.9 gm/dL (6.0-8.3)
[2016-12-19] MEDS: INSULIN ASPART SLIDING SCALE 100 UNITS/ML UNIT SUBQ SCH ×3 (06:19→17:59)
[2016-12-19 06:26] LABS: % BASOPHILS 0.4 % (0.0-2.0); % EOSINOPHILS 3.7 % (0.0-5.0); % LYMPHOCYTES 18.3 % (20.0-50.0); % MONOCYTES 10.8 % (2.0-10.0); % NEUTROPHILS 66.8 % (40.0-80.0); EOSINOPHILE ABSOLUTE 0.4 Th/cmm (0.1-0.4); HEMOGLOBIN 8.7 gm/dL (12-16); LYMPHOCYTE ABSOLUTE 1.9 Th/cmm (1.5-3.0); MEAN CELL VOLUME 92.8 fl (81-100); MEAN CORPUSCULAR HEMOGLOBIN 30.9 pg (27.0-31.0); MEAN CORPUSCULAR HGB CONC 33.3 pg (28.0-36.0); MONOCYTE ABSOLUTE 1.1 Th/cmm (0.3-1.0); PLATELET COUNT 232 Th/cmm (150-400); RED BLOOD COUNT 2.81 Mil/cmm (3.80-5.20); RED CELL DISTRIBUTION WIDTH 15.7 % (11.5-20.0); WHITE BLOOD COUNT 10.4 Th/cmm (4.8-10.8)
[2016-12-19 06:28] LABS: HEMATOCRIT 26.1 % (41.0-60)
--- NOTE | 2016-12-19 09:24 | General Progress Note ---
Subjective - Review of Systems Events since last encounter: no acute distress patient awake Subjective: awake confused nad Objective - Results Result Diagrams: 12/19/16 06:00 12/19/16 05:27 Recent Labs: Laboratory Last Values WBC 10.4 Th/cmm (4.8-10.8) 12/19/16 06:00 RBC 2.81 Mil/cmm (3.80-5.20) L 12/19/16 06:00 Hgb 8.7 gm/dL (12-16) L 12/19/16 06:00 Hct 26.1 % (41.0-60) L D 12/19/16 06:00 MCV 92.8 fl (81-100) 12/19/16 06:00 MCH 30.9 pg (27.0-31.0) 12/19/16 06:00 MCHC Differential 33.3 pg (28.0-36.0) 12/19/16 06:00 RDW 15.7 % (11.5-20.0) 12/19/16 06:00 Plt Count 232 Th/cmm (150-400) 12/19/16 06:00 MPV 9.0 fl 12/19/16 06:00 Neutrophils % 66.8 % (40.0-80.0) 12/19/16 06:00 Band Neutrophils % 4 % (0-10) 12/14/16 18:03 Lymphocytes % 18.3 % (20.0-50.0) L 12/19/16 06:00 Monocytes % 10.8 % (2.0-10.0) H 12/19/16 06:00 Eosinophils % 3.7 % (0.0-5.0) 12/19/16 06:00 Basophils % 0.4 % (0.0-2.0) 12/19/16 06:00 Neutrophils (Manual) 80 % (40-80) 12/14/16 18:03 Lymphocytes 13 % (20-50) L 12/14/16 18:03 Monocytes 3 % (2-10) 12/14/16 18:03 Eosinophils 1 % (0-5) 12/14/16 05:20 Platelet Estimate ADEQUATE (NORMAL) 12/14/16 18:03 PT 10.3 SECONDS (9.5-11.5) 12/18/16 05:35 INR 0.99 (0.5-1.4) 12/18/16 05:35 PTT (Actin FS) 22.0 SECONDS (26.0-38.0) L 12/12/16 21:56 Sodium 144 mEq/L (136-145) 12/19/16 05:27 Potassium 3.4 mEq/L (3.5-5.1) L 12/19/16 05:27 Chloride 112 mEq/L (98-107) H 12/19/16 05:27 Carbon Dioxide 26.2 mEq/L (21.0-31.0) 12/19/16 05:27 Anion Gap 9.2 (7.0-16.0) 12/19/16 05:27 BUN 36 mg/dL (7-25) H 12/19/16 05:27 Creatinine 0.9 mg/dL (0.6-1.2) 12/19/16 05:27 Est GFR ( Amer) TNP 12/19/16 05:27 Est GFR (Non-Af Amer) TNP 12/19/16 05:27 BUN/Creatinine Ratio 40.0 12/19/16 05:27 Glucose 186 mg/dL (70-105) H 12/19/16 05:27 POC Glucose 134 MG/DL (70 - 105) H 12/19/16 09:14 Hemoglobin A1c % 7.3 % (4.0-6.0) H 12/14/16 05:20 Whole Bld Lactic Acid 1.82 mmol/L (0.60-1.99) 12/12/16 21:56 Calcium 7.7 mg/dL (8.6-10.3) L 12/19/16 05:27 Magnesium 2.0 mg/dL (1.9-2.7) 12/19/16 05:27 Total Bilirubin 0.2 mg/dL (0.3-1.0) L 12/19/16 05:27 AST 18 U/L (13-39) 12/19/16 05:27 ALT 18 U/L (7-52) 12/19/16 05:27 Alkaline Phosphatase 60 U/L (34-104) 12/19/16 05:27 Creatine Kinase < 10 U/L (30-223) L 12/12/16 21:36 Troponin I 0.04 ng/mL (0.01-0.05) 12/12/16 21:56 B-Natriuretic Peptide 440.0 pg/mL (5.0-100.0) H 12/12/16 21:56 Total Protein 4.9 gm/dL (6.0-8.3) L 12/19/16 05:27 Albumin 1.8 gm/dL (3.7-5.3) L 12/19/16 05:27 Globulin 3.1 gm/dL 12/19/16 05:27 Albumin/Globulin Ratio 0.6 (1.0-1.8) L 12/19/16 05:27 Triglycerides 215 mg/dL (<150) H 12/12/16 21:36 Cholesterol 145 mg/dL (<200) 12/12/16 21:36 LDL Cholesterol Direct 87 mg/dL (75-193) 12/12/16 21:36 HDL Cholesterol 36 mg/dL (23-92) 12/12/16 21:36 Urine Source MIDSTREAM 12/12/16 23:15 Urine Color YELLOW 12/12/16 23:15 Urine Clarity CLOUDY (CLEAR) H 12/12/16 23:15 Urine pH 6.5 (4.6 - 8.0) 12/12/16 23:15 Ur Specific [place] 1.010 (1.005-1.030) 12/12/16 23:15 Urine Protein 100 mg/dL (NEGATIVE) H 12/12/16 23:15 Urine Glucose (UA) NEGATIVE mg/dL (NEGATIVE) 12/12/16 23:15 Urine Ketones NEGATIVE mg/dL (NEGATIVE) 12/12/16 23:15 Urine Blood TRACE (NEGATIVE) 12/12/16 23:15 Urine Nitrate POSITIVE (NEGATIVE) H 12/12/16 23:15 Urine Bilirubin NEGATIVE (NEGATIVE) 12/12/16 23:15 Urine Urobilinogen 0.2 E.U./dL (0.2 - 1.0) 12/12/16 23:15 Ur Leukocyte Esterase LARGE (NEGATIVE) H 12/12/16 23:15 Urine RBC 2-5 /hpf (0-5) 12/12/16 23:15 Urine WBC >100 /hpf (0-5) H 12/12/16 23:15 Ur Epithelial Cells MODERATE /lpf (FEW) 12/12/16 23:15 Urine Bacteria MANY /hpf (NONE SEEN) 12/12/16 23:15 Blood Type O POSITIVE 12/16/16 11:34 Antibody Screen NEGATIVE 12/16/16 11:34 Crossmatch See Detail 12/16/16 11:34 - Physical Exam Vitals and I&O: Vital Signs Temp 97.2 F 12/19/16 08:00 Pulse 68 12/19/16 08:00 Resp 18 12/19/16 08:00 BP 122/53 12/19/16 08:00 Pulse Ox 100 12/19/16 08:00 Intake & Output 12/18/16 12/19/16 12/19/16 18:59 06:59 18:59 Intake Total 850 690 Output Total 700 Balance 150 690 Weight (lbs) 110.813 kg Intake: Intake, IV Amount 50 690 D5-0.9%Ns 1,000 ml @ 50 640 mls/hr IV .Q20H [facility] Rx#: [id number] Piperacillin Sodium/ 50 50 Tazobact 3.375 gm In Sodium Chloride 0.9% 50 ml @ 100 mls/hr IV Q8HRT [facility] Rx#:[id number] Oral 0 Tube Feeding 600 Other 200 Output: Urine 700 Other: # Bowel Movements 0 Stool Characteristics Formed Soft Active Medications: Current Medications Acetaminophen (Tylenol Children) 320 mg GT Q4HR PRN PRN Reason: TEMP >100F Stop: 02/11/17 01:25 Last Admin: 12/18/16 20:49 Dose: 320 mg Acetaminophen (Tylenol Children) 320 mg PO Q4HR PRN PRN Reason: Pain (Mild) Stop: 02/11/17 01:25 Last Admin: 12/14/16 17:47 Dose: 320 mg Albuterol/Ipratropium (Duoneb Neb) 3 ml HHN Q2HR PRN PRN Reason: Shortness of Breath or Wheeze Stop: 02/11/17 01:25 Albuterol/Ipratropium (Duoneb Neb) 3 ml HHN Q4HRT [facility] Stop: 02/11/17 02:59 Last Admin: 12/19/16 07:05 Dose: 3 ml Amlodipine Besylate (Norvasc) 5 mg GT DAILY [facility] Stop: 02/11/17 08:59 Last Admin: 12/18/16 09:50 Dose: 5 mg Carvedilol (Coreg) 12.5 mg GT Q12HR [facility] Stop: 02/11/17 08:59 Last Admin: 12/18/16 20:44 Dose: 12.5 mg Hydralazine HCl (Apresoline 20 Mg/Ml) 10 mg IV Q6HR PRN PRN Reason: DBP ABOVE 90/SBP ABOBE 160 Stop: 02/15/17 16:42 Last Admin: 12/17/16 17:48 Dose: 10 mg Ceftriaxone Sodium 1 gm/ (Sodium Chloride) 50 mls @ 100 mls/hr IV Q24HR P[facility] Stop: 02/11/17 02:59 Last Admin: 12/19/16 02:47 Dose: 100 mls/hr Dextrose/Sodium Chloride (D5-0.9%Ns) 1,000 mls @ 50 mls/hr IV .Q20H [facility] Stop: 02/12/17 21:44 Last Admin: 12/19/16 03:03 Dose: 50 mls/hr Piperacillin Sod/Tazobactam (Sod 3.375 gm/ Sodium Chloride) 50 mls @ 100 mls/ hr IV Q8HRT [facility] Stop: 02/15/17 14:59 Last Admin: 12/19/16 06:23 Dose: 100 mls/hr Insulin Aspart (Novolog Insulin Sliding Scale) 0 units SUBQ Q6HR PITO PRN Reason: Protocol Stop: 02/11/17 05:59 Last Admin: 12/19/16 06:19 Dose: 3 units Insulin Detemir (Levemir Insulin) 10 units SUBQ Q12HR [facility] Stop: 02/11/17 08:59 Last Admin: 12/18/16 20:57 Dose: 10 units Lactobacillus Rhamnosus (Culturelle) 1 each PO DAILY [facility] Stop: 02/12/17 08:59 Last Admin: 12/18/16 09:49 Dose: 1 each Levetiracetam (Keppra) 1,000 mg GT Q12HR [facility] Stop: 02/11/17 08:59 Last Admin: 12/18/16 20:44 Dose: 1,000 mg Magnesium Hydroxide (Milk Of Magnesia) 30 ml PO TID PRN PRN Reason: Constipation Stop: 02/14/17 14:07 Last Admin: 12/16/16 14:41 Dose: 30 ml Miscellaneous (Probiotic Screen) 1 ea MC PRN PRN PRN Reason: PROTOCOL Stop: 02/11/17 14:59 Morphine Sulfate (Morphine) 2 mg IVP Q4HR PRN PRN Reason: Severe Pain Stop: 02/14/17 14:52 Last Admin: 12/19/16 03:05 Dose: 2 mg Pantoprazole Sodium (Protonix) 40 mg GT QAM PIT[facility] Stop: 02/11/17 08:59 Last Admin: 12/18/16 09:49 Dose: 40 mg Phenytoin (Dilantin) 100 mg GT BID [facility] Stop: 02/11/17 08:59 Last Admin: 12/18/16 18:01 Dose: 100 mg General: Alert, Other (confused) HEENT: Atraumatic Cardiovascular: Regular rate Abdomen: Bowel sounds, Soft Extremities: Pulses Assessment/Plan - Assessment Assessment: sepsis poss sepsis syndrome anemia pneumonia myocardiac ischemia hyponatremia arthritis hx dysphagia hx gt status hx copd hx sleep apnea - Plan Plan: ivantibiotics iv fluid cpm Nutritional Asmnt/Malnutr-PDOC - Dietary Evaluation Malnutrition Findings (Please click <Entered> for more info): Nutritional Asmnt/Malnutrition Start: 12/13/16 15: 20 Text: Status: Complete Freq: Document 12/13/16 15:21 GSUN (Rec: 12/13/16 15:43 [email or web address] [email or web address]) Nutritional Asmnt/Malnutrition Patient General Information Nutritional Screening High Risk Screening Diagnosis ER report: [place], sepsis, PNA, dehydration, anemia, leykocytosis, weakness Pertinent Medical Hx/Surgical Hx ER report: HTN, DM, asthma/ COPD, dyslipidemia, PUD/GERD, arthritis Subjective Information 76 year old female from SNF. 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 Observed tube feeding infusing as ordered. Confirmed tube feeding order and on/off time with GREGORIO Lozano RN stated pt tolerating well since adm. Pt appeared mobidly obese. Unable to obtain CBW due to bedscale imporperly calibrated. Current Diet Order/ Nutrition Support Diabetisource 65ml/hr x 20hrs, providing 1560kcal, 78g protein Pertinent Medications D5-0.9%ns, Novolog, Levemir, Culturelle, Protonix, Dilatin Pertinent Labs 12/12: glucose 151H, triglycerides 215H, BUN 59H POC glucose 169H, 186H Nutritional Hx/Data Height 1.55 m Height (Calculated Centimeters) 154.9 Current Weight (lbs) 100.244 kg Weight (Calculated Kilograms) 100.2 Weight (Calculated Grams) 121726.9 [place] Body Weight 105 Weight Status Morbidly Obese GI Symptoms Food Allergies No Usual diet at home [facility]: glucerna 1.2 at 60ml/hr x 20hrs Skin Integrity/Comment: [place] 13. Left and right buttocks reddened. Estimated Nutritional Goals BEE in Kcals: Adj wt of IBW Calories/Kcals/Kg AdjBW 131.5lb/59.8kg (to 211lb adm weight 12/12/16) Kcals Calculated 1794-2093kcal (30-35kcal/kg) Protein: Adj wt of IBW Protein Calculated 72-90g (1.2-1.5g/kg) Fluid: ml 1794-2093ml (1ml/kcal) Nutritional Problem 1. Problem Problem Increased kcal and prot needs related to Etiology hypermatbolic state aeb Signs/Symptoms: PNA and sepsis per ER report Malnutrition Related to Morbid Obesity Malnutrition related to morbid obesity BMI> or equal to 40 Query Text:(Any 1 Criteria met) Malnutrition related to morbid obesity Yes Intervention/Recommendation Comments 1. Recommend increasing Diabetisource to 75ml/hr x 20hrs, providing 1800kcal, 90g protein, 1500ml total volume. Increased kcal and prot needs due to hypermetabolic state - sepsis, PNA per ER report. Expected Outcomes/Goals Expected Outcomes/Goals 1. Pt to meet at least 100% of estimated nutritinoal needs on tube feeding with tolerance .
--- NOTE | 2016-12-19 09:24 | General Progress Note ---
Subjective - Review of Systems Events since last encounter: no acute distress patient awake Subjective: awake confused nad Objective - Results Result Diagrams: 12/19/16 06:00 12/19/16 05:27 Recent Labs: Laboratory Last Values WBC 10.4 Th/cmm (4.8-10.8) 12/19/16 06:00 RBC 2.81 Mil/cmm (3.80-5.20) L 12/19/16 06:00 Hgb 8.7 gm/dL (12-16) L 12/19/16 06:00 Hct 26.1 % (41.0-60) L D 12/19/16 06:00 MCV 92.8 fl (81-100) 12/19/16 06:00 MCH 30.9 pg (27.0-31.0) 12/19/16 06:00 MCHC Differential 33.3 pg (28.0-36.0) 12/19/16 06:00 RDW 15.7 % (11.5-20.0) 12/19/16 06:00 Plt Count 232 Th/cmm (150-400) 12/19/16 06:00 MPV 9.0 fl 12/19/16 06:00 Neutrophils % 66.8 % (40.0-80.0) 12/19/16 06:00 Band Neutrophils % 4 % (0-10) 12/14/16 18:03 Lymphocytes % 18.3 % (20.0-50.0) L 12/19/16 06:00 Monocytes % 10.8 % (2.0-10.0) H 12/19/16 06:00 Eosinophils % 3.7 % (0.0-5.0) 12/19/16 06:00 Basophils % 0.4 % (0.0-2.0) 12/19/16 06:00 Neutrophils (Manual) 80 % (40-80) 12/14/16 18:03 Lymphocytes 13 % (20-50) L 12/14/16 18:03 Monocytes 3 % (2-10) 12/14/16 18:03 Eosinophils 1 % (0-5) 12/14/16 05:20 Platelet Estimate ADEQUATE (NORMAL) 12/14/16 18:03 PT 10.3 SECONDS (9.5-11.5) 12/18/16 05:35 INR 0.99 (0.5-1.4) 12/18/16 05:35 PTT (Actin FS) 22.0 SECONDS (26.0-38.0) L 12/12/16 21:56 Sodium 144 mEq/L (136-145) 12/19/16 05:27 Potassium 3.4 mEq/L (3.5-5.1) L 12/19/16 05:27 Chloride 112 mEq/L (98-107) H 12/19/16 05:27 Carbon Dioxide 26.2 mEq/L (21.0-31.0) 12/19/16 05:27 Anion Gap 9.2 (7.0-16.0) 12/19/16 05:27 BUN 36 mg/dL (7-25) H 12/19/16 05:27 Creatinine 0.9 mg/dL (0.6-1.2) 12/19/16 05:27 Est GFR ( Amer) TNP 12/19/16 05:27 Est GFR (Non-Af Amer) TNP 12/19/16 05:27 BUN/Creatinine Ratio 40.0 12/19/16 05:27 Glucose 186 mg/dL (70-105) H 12/19/16 05:27 POC Glucose 134 MG/DL (70 - 105) H 12/19/16 09:14 Hemoglobin A1c % 7.3 % (4.0-6.0) H 12/14/16 05:20 Whole Bld Lactic Acid 1.82 mmol/L (0.60-1.99) 12/12/16 21:56 Calcium 7.7 mg/dL (8.6-10.3) L 12/19/16 05:27 Magnesium 2.0 mg/dL (1.9-2.7) 12/19/16 05:27 Total Bilirubin 0.2 mg/dL (0.3-1.0) L 12/19/16 05:27 AST 18 U/L (13-39) 12/19/16 05:27 ALT 18 U/L (7-52) 12/19/16 05:27 Alkaline Phosphatase 60 U/L (34-104) 12/19/16 05:27 Creatine Kinase < 10 U/L (30-223) L 12/12/16 21:36 Troponin I 0.04 ng/mL (0.01-0.05) 12/12/16 21:56 B-Natriuretic Peptide 440.0 pg/mL (5.0-100.0) H 12/12/16 21:56 Total Protein 4.9 gm/dL (6.0-8.3) L 12/19/16 05:27 Albumin 1.8 gm/dL (3.7-5.3) L 12/19/16 05:27 Globulin 3.1 gm/dL 12/19/16 05:27 Albumin/Globulin Ratio 0.6 (1.0-1.8) L 12/19/16 05:27 Triglycerides 215 mg/dL (<150) H 12/12/16 21:36 Cholesterol 145 mg/dL (<200) 12/12/16 21:36 LDL Cholesterol Direct 87 mg/dL (75-193) 12/12/16 21:36 HDL Cholesterol 36 mg/dL (23-92) 12/12/16 21:36 Urine Source MIDSTREAM 12/12/16 23:15 Urine Color YELLOW 12/12/16 23:15 Urine Clarity CLOUDY (CLEAR) H 12/12/16 23:15 Urine pH 6.5 (4.6 - 8.0) 12/12/16 23:15 Ur Specific [place] 1.010 (1.005-1.030) 12/12/16 23:15 Urine Protein 100 mg/dL (NEGATIVE) H 12/12/16 23:15 Urine Glucose (UA) NEGATIVE mg/dL (NEGATIVE) 12/12/16 23:15 Urine Ketones NEGATIVE mg/dL (NEGATIVE) 12/12/16 23:15 Urine Blood TRACE (NEGATIVE) 12/12/16 23:15 Urine Nitrate POSITIVE (NEGATIVE) H 12/12/16 23:15 Urine Bilirubin NEGATIVE (NEGATIVE) 12/12/16 23:15 Urine Urobilinogen 0.2 E.U./dL (0.2 - 1.0) 12/12/16 23:15 Ur Leukocyte Esterase LARGE (NEGATIVE) H 12/12/16 23:15 Urine RBC 2-5 /hpf (0-5) 12/12/16 23:15 Urine WBC >100 /hpf (0-5) H 12/12/16 23:15 Ur Epithelial Cells MODERATE /lpf (FEW) 12/12/16 23:15 Urine Bacteria MANY /hpf (NONE SEEN) 12/12/16 23:15 Blood Type O POSITIVE 12/16/16 11:34 Antibody Screen NEGATIVE 12/16/16 11:34 Crossmatch See Detail 12/16/16 11:34 - Physical Exam Vitals and I&O: Vital Signs Temp 97.2 F 12/19/16 08:00 Pulse 68 12/19/16 08:00 Resp 18 12/19/16 08:00 BP 122/53 12/19/16 08:00 Pulse Ox 100 12/19/16 08:00 Intake & Output 12/18/16 12/19/16 12/19/16 18:59 06:59 18:59 Intake Total 850 690 Output Total 700 Balance 150 690 Weight (lbs) 110.813 kg Intake: Intake, IV Amount 50 690 D5-0.9%Ns 1,000 ml @ 50 640 mls/hr IV .Q20H [facility] Rx#: [id number] Piperacillin Sodium/ 50 50 Tazobact 3.375 gm In Sodium Chloride 0.9% 50 ml @ 100 mls/hr IV Q8HRT [facility] Rx#:[id number] Oral 0 Tube Feeding 600 Other 200 Output: Urine 700 Other: # Bowel Movements 0 Stool Characteristics Formed Soft Active Medications: Current Medications Acetaminophen (Tylenol Children) 320 mg GT Q4HR PRN PRN Reason: TEMP >100F Stop: 02/11/17 01:25 Last Admin: 12/18/16 20:49 Dose: 320 mg Acetaminophen (Tylenol Children) 320 mg PO Q4HR PRN PRN Reason: Pain (Mild) Stop: 02/11/17 01:25 Last Admin: 12/14/16 17:47 Dose: 320 mg Albuterol/Ipratropium (Duoneb Neb) 3 ml HHN Q2HR PRN PRN Reason: Shortness of Breath or Wheeze Stop: 02/11/17 01:25 Albuterol/Ipratropium (Duoneb Neb) 3 ml HHN Q4HRT [facility] Stop: 02/11/17 02:59 Last Admin: 12/19/16 07:05 Dose: 3 ml Amlodipine Besylate (Norvasc) 5 mg GT DAILY [facility] Stop: 02/11/17 08:59 Last Admin: 12/18/16 09:50 Dose: 5 mg Carvedilol (Coreg) 12.5 mg GT Q12HR PITO Stop: 02/11/17 08:59 Last Admin: 12/18/16 20:44 Dose: 12.5 mg Hydralazine HCl (Apresoline 20 Mg/Ml) 10 mg IV Q6HR PRN PRN Reason: DBP ABOVE 90/SBP ABOBE 160 Stop: 02/15/17 16:42 Last Admin: 12/17/16 17:48 Dose: 10 mg Ceftriaxone Sodium 1 gm/ (Sodium Chloride) 50 mls @ 100 mls/hr IV Q24HR PITO Stop: 02/11/17 02:59 Last Admin: 12/19/16 02:47 Dose: 100 mls/hr Dextrose/Sodium Chloride (D5-0.9%Ns) 1,000 mls @ 50 mls/hr IV .Q20H [facility] Stop: 02/12/17 21:44 Last Admin: 12/19/16 03:03 Dose: 50 mls/hr Piperacillin Sod/Tazobactam (Sod 3.375 gm/ Sodium Chloride) 50 mls @ 100 mls/ hr IV Q8HRT [facility] Stop: 02/15/17 14:59 Last Admin: 12/19/16 06:23 Dose: 100 mls/hr Insulin Aspart (Novolog Insulin Sliding Scale) 0 units SUBQ Q6HR PITO PRN Reason: Protocol Stop: 02/11/17 05:59 Last Admin: 12/19/16 06:19 Dose: 3 units Insulin Detemir (Levemir Insulin) 10 units SUBQ Q12HR PIOT Stop: 02/11/17 08:59 Last Admin: 12/18/16 20:57 Dose: 10 units Lactobacillus Rhamnosus (Culturelle) 1 each PO DAILY [facility] Stop: 02/12/17 08:59 Last Admin: 12/18/16 09:49 Dose: 1 each Levetiracetam (Keppra) 1,000 mg GT Q12HR PITO Stop: 02/11/17 08:59 Last Admin: 12/18/16 20:44 Dose: 1,000 mg Magnesium Hydroxide (Milk Of Magnesia) 30 ml PO TID PRN PRN Reason: Constipation Stop: 02/14/17 14:07 Last Admin: 12/16/16 14:41 Dose: 30 ml Miscellaneous (Probiotic Screen) 1 ea MC PRN PRN PRN Reason: PROTOCOL Stop: 02/11/17 14:59 Morphine Sulfate (Morphine) 2 mg IVP Q4HR PRN PRN Reason: Severe Pain Stop: 02/14/17 14:52 Last Admin: 12/19/16 03:05 Dose: 2 mg Pantoprazole Sodium (Protonix) 40 mg GT QAM PITO Stop: 02/11/17 08:59 Last Admin: 12/18/16 09:49 Dose: 40 mg Phenytoin (Dilantin) 100 mg GT BID PITO Stop: 02/11/17 08:59 Last Admin: 12/18/16 18:01 Dose: 100 mg General: Alert, Other (confused) HEENT: Atraumatic Cardiovascular: Regular rate Abdomen: Bowel sounds, Soft Extremities: Pulses Assessment/Plan - Assessment Assessment: sepsis poss sepsis syndrome anemia pneumonia myocardiac ischemia hyponatremia arthritis hx dysphagia hx gt status hx copd hx sleep apnea - Plan Plan: ivantibiotics iv fluid cpm Nutritional Asmnt/Malnutr-PDOC - Dietary Evaluation Malnutrition Findings (Please click <Entered> for more info): Nutritional Asmnt/Malnutrition Start: 12/13/16 15: 20 Text: Status: Complete Freq: Document 12/13/16 15:21 GSUN (Rec: 12/13/16 15:43 [email or web address] [email or web address]) Nutritional Asmnt/Malnutrition Patient General Information Nutritional Screening High Risk Screening Diagnosis ER report: RI, sepsis, PNA, dehydration, anemia, leykocytosis, weakness Pertinent Medical Hx/Surgical Hx ER report: HTN, DM, asthma/ COPD, dyslipidemia, PUD/GERD, arthritis Subjective Information 76 year old female from SNF. 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 Observed tube feeding infusing as ordered. Confirmed tube feeding order and on/off time with GREGORIO Lozano RN stated pt tolerating well since adm. Pt appeared mobidly obese. Unable to obtain CBW due to bedscale imporperly calibrated. Current Diet Order/ Nutrition Support Diabetisource 65ml/hr x 20hrs, providing 1560kcal, 78g protein Pertinent Medications D5-0.9%ns, Novolog, Levemir, Culturelle, Protonix, Dilatin Pertinent Labs 12/12: glucose 151H, triglycerides 215H, BUN 59H POC glucose 169H, 186H Nutritional Hx/Data Height 1.55 m Height (Calculated Centimeters) 154.9 Current Weight (lbs) 100.244 kg Weight (Calculated Kilograms) 100.2 Weight (Calculated Grams) 328308.9 [place] Body Weight 105 Weight Status Morbidly Obese GI Symptoms Food Allergies No Usual diet at home [facility]: glucerna 1.2 at 60ml/hr x 20hrs Skin Integrity/Comment: [place] 13. Left and right buttocks reddened. Estimated Nutritional Goals BEE in Kcals: Adj wt of IBW Calories/Kcals/Kg AdjBW 131.5lb/59.8kg (to 211lb adm weight 12/12/16) Kcals Calculated 1794-2093kcal (30-35kcal/kg) Protein: Adj wt of IBW Protein Calculated 72-90g (1.2-1.5g/kg) Fluid: ml 1794-2093ml (1ml/kcal) Nutritional Problem 1. Problem Problem Increased kcal and prot needs related to Etiology hypermatbolic state aeb Signs/Symptoms: PNA and sepsis per ER report Malnutrition Related to Morbid Obesity Malnutrition related to morbid obesity BMI> or equal to 40 Query Text:(Any 1 Criteria met) Malnutrition related to morbid obesity Yes Intervention/Recommendation Comments 1. Recommend increasing Diabetisource to 75ml/hr x 20hrs, providing 1800kcal, 90g protein, 1500ml total volume. Increased kcal and prot needs due to hypermetabolic state - sepsis, PNA per ER report. Expected Outcomes/Goals Expected Outcomes/Goals 1. Pt to meet at least 100% of estimated nutritinoal needs on tube feeding with tolerance .
--- NOTE | 2016-12-19 09:24 | General Progress Note ---
Subjective - Review of Systems Events since last encounter: no acute distress patient awake Subjective: awake confused nad Objective - Results Result Diagrams: 12/19/16 06:00 12/19/16 05:27 Recent Labs: Laboratory Last Values WBC 10.4 Th/cmm (4.8-10.8) 12/19/16 06:00 RBC 2.81 Mil/cmm (3.80-5.20) L 12/19/16 06:00 Hgb 8.7 gm/dL (12-16) L 12/19/16 06:00 Hct 26.1 % (41.0-60) L D 12/19/16 06:00 MCV 92.8 fl (81-100) 12/19/16 06:00 MCH 30.9 pg (27.0-31.0) 12/19/16 06:00 MCHC Differential 33.3 pg (28.0-36.0) 12/19/16 06:00 RDW 15.7 % (11.5-20.0) 12/19/16 06:00 Plt Count 232 Th/cmm (150-400) 12/19/16 06:00 MPV 9.0 fl 12/19/16 06:00 Neutrophils % 66.8 % (40.0-80.0) 12/19/16 06:00 Band Neutrophils % 4 % (0-10) 12/14/16 18:03 Lymphocytes % 18.3 % (20.0-50.0) L 12/19/16 06:00 Monocytes % 10.8 % (2.0-10.0) H 12/19/16 06:00 Eosinophils % 3.7 % (0.0-5.0) 12/19/16 06:00 Basophils % 0.4 % (0.0-2.0) 12/19/16 06:00 Neutrophils (Manual) 80 % (40-80) 12/14/16 18:03 Lymphocytes 13 % (20-50) L 12/14/16 18:03 Monocytes 3 % (2-10) 12/14/16 18:03 Eosinophils 1 % (0-5) 12/14/16 05:20 Platelet Estimate ADEQUATE (NORMAL) 12/14/16 18:03 PT 10.3 SECONDS (9.5-11.5) 12/18/16 05:35 INR 0.99 (0.5-1.4) 12/18/16 05:35 PTT (Actin FS) 22.0 SECONDS (26.0-38.0) L 12/12/16 21:56 Sodium 144 mEq/L (136-145) 12/19/16 05:27 Potassium 3.4 mEq/L (3.5-5.1) L 12/19/16 05:27 Chloride 112 mEq/L (98-107) H 12/19/16 05:27 Carbon Dioxide 26.2 mEq/L (21.0-31.0) 12/19/16 05:27 Anion Gap 9.2 (7.0-16.0) 12/19/16 05:27 BUN 36 mg/dL (7-25) H 12/19/16 05:27 Creatinine 0.9 mg/dL (0.6-1.2) 12/19/16 05:27 Est GFR ( Amer) TNP 12/19/16 05:27 Est GFR (Non-Af Amer) TNP 12/19/16 05:27 BUN/Creatinine Ratio 40.0 12/19/16 05:27 Glucose 186 mg/dL (70-105) H 12/19/16 05:27 POC Glucose 134 MG/DL (70 - 105) H 12/19/16 09:14 Hemoglobin A1c % 7.3 % (4.0-6.0) H 12/14/16 05:20 Whole Bld Lactic Acid 1.82 mmol/L (0.60-1.99) 12/12/16 21:56 Calcium 7.7 mg/dL (8.6-10.3) L 12/19/16 05:27 Magnesium 2.0 mg/dL (1.9-2.7) 12/19/16 05:27 Total Bilirubin 0.2 mg/dL (0.3-1.0) L 12/19/16 05:27 AST 18 U/L (13-39) 12/19/16 05:27 ALT 18 U/L (7-52) 12/19/16 05:27 Alkaline Phosphatase 60 U/L (34-104) 12/19/16 05:27 Creatine Kinase < 10 U/L (30-223) L 12/12/16 21:36 Troponin I 0.04 ng/mL (0.01-0.05) 12/12/16 21:56 B-Natriuretic Peptide 440.0 pg/mL (5.0-100.0) H 12/12/16 21:56 Total Protein 4.9 gm/dL (6.0-8.3) L 12/19/16 05:27 Albumin 1.8 gm/dL (3.7-5.3) L 12/19/16 05:27 Globulin 3.1 gm/dL 12/19/16 05:27 Albumin/Globulin Ratio 0.6 (1.0-1.8) L 12/19/16 05:27 Triglycerides 215 mg/dL (<150) H 12/12/16 21:36 Cholesterol 145 mg/dL (<200) 12/12/16 21:36 LDL Cholesterol Direct 87 mg/dL (75-193) 12/12/16 21:36 HDL Cholesterol 36 mg/dL (23-92) 12/12/16 21:36 Urine Source MIDSTREAM 12/12/16 23:15 Urine Color YELLOW 12/12/16 23:15 Urine Clarity CLOUDY (CLEAR) H 12/12/16 23:15 Urine pH 6.5 (4.6 - 8.0) 12/12/16 23:15 Ur Specific [place] 1.010 (1.005-1.030) 12/12/16 23:15 Urine Protein 100 mg/dL (NEGATIVE) H 12/12/16 23:15 Urine Glucose (UA) NEGATIVE mg/dL (NEGATIVE) 12/12/16 23:15 Urine Ketones NEGATIVE mg/dL (NEGATIVE) 12/12/16 23:15 Urine Blood TRACE (NEGATIVE) 12/12/16 23:15 Urine Nitrate POSITIVE (NEGATIVE) H 12/12/16 23:15 Urine Bilirubin NEGATIVE (NEGATIVE) 12/12/16 23:15 Urine Urobilinogen 0.2 E.U./dL (0.2 - 1.0) 12/12/16 23:15 Ur Leukocyte Esterase LARGE (NEGATIVE) H 12/12/16 23:15 Urine RBC 2-5 /hpf (0-5) 12/12/16 23:15 Urine WBC >100 /hpf (0-5) H 12/12/16 23:15 Ur Epithelial Cells MODERATE /lpf (FEW) 12/12/16 23:15 Urine Bacteria MANY /hpf (NONE SEEN) 12/12/16 23:15 Blood Type O POSITIVE 12/16/16 11:34 Antibody Screen NEGATIVE 12/16/16 11:34 Crossmatch See Detail 12/16/16 11:34 - Physical Exam Vitals and I&O: Vital Signs Temp 97.2 F 12/19/16 08:00 Pulse 68 12/19/16 08:00 Resp 18 12/19/16 08:00 BP 122/53 12/19/16 08:00 Pulse Ox 100 12/19/16 08:00 Intake & Output 12/18/16 12/19/16 12/19/16 18:59 06:59 18:59 Intake Total 850 690 Output Total 700 Balance 150 690 Weight (lbs) 110.813 kg Intake: Intake, IV Amount 50 690 D5-0.9%Ns 1,000 ml @ 50 640 mls/hr IV .Q20H [facility] Rx#: [id number] Piperacillin Sodium/ 50 50 Tazobact 3.375 gm In Sodium Chloride 0.9% 50 ml @ 100 mls/hr IV Q8HRT [facility] Rx#:[id number] Oral 0 Tube Feeding 600 Other 200 Output: Urine 700 Other: # Bowel Movements 0 Stool Characteristics Formed Soft Active Medications: Current Medications Acetaminophen (Tylenol Children) 320 mg GT Q4HR PRN PRN Reason: TEMP >100F Stop: 02/11/17 01:25 Last Admin: 12/18/16 20:49 Dose: 320 mg Acetaminophen (Tylenol Children) 320 mg PO Q4HR PRN PRN Reason: Pain (Mild) Stop: 02/11/17 01:25 Last Admin: 12/14/16 17:47 Dose: 320 mg Albuterol/Ipratropium (Duoneb Neb) 3 ml HHN Q2HR PRN PRN Reason: Shortness of Breath or Wheeze Stop: 02/11/17 01:25 Albuterol/Ipratropium (Duoneb Neb) 3 ml HHN Q4HRT [facility] Stop: 02/11/17 02:59 Last Admin: 12/19/16 07:05 Dose: 3 ml Amlodipine Besylate (Norvasc) 5 mg GT DAILY [facility] Stop: 02/11/17 08:59 Last Admin: 12/18/16 09:50 Dose: 5 mg Carvedilol (Coreg) 12.5 mg GT Q12HR PITO Stop: 02/11/17 08:59 Last Admin: 12/18/16 20:44 Dose: 12.5 mg Hydralazine HCl (Apresoline 20 Mg/Ml) 10 mg IV Q6HR PRN PRN Reason: DBP ABOVE 90/SBP ABOBE 160 Stop: 02/15/17 16:42 Last Admin: 12/17/16 17:48 Dose: 10 mg Ceftriaxone Sodium 1 gm/ (Sodium Chloride) 50 mls @ 100 mls/hr IV Q24HR PITO Stop: 02/11/17 02:59 Last Admin: 12/19/16 02:47 Dose: 100 mls/hr Dextrose/Sodium Chloride (D5-0.9%Ns) 1,000 mls @ 50 mls/hr IV .Q20H [facility] Stop: 02/12/17 21:44 Last Admin: 12/19/16 03:03 Dose: 50 mls/hr Piperacillin Sod/Tazobactam (Sod 3.375 gm/ Sodium Chloride) 50 mls @ 100 mls/ hr IV Q8HRT [facility] Stop: 02/15/17 14:59 Last Admin: 12/19/16 06:23 Dose: 100 mls/hr Insulin Aspart (Novolog Insulin Sliding Scale) 0 units SUBQ Q6HR PITO PRN Reason: Protocol Stop: 02/11/17 05:59 Last Admin: 12/19/16 06:19 Dose: 3 units Insulin Detemir (Levemir Insulin) 10 units SUBQ Q12HR P[facility] Stop: 02/11/17 08:59 Last Admin: 12/18/16 20:57 Dose: 10 units Lactobacillus Rhamnosus (Culturelle) 1 each PO DAILY [facility] Stop: 02/12/17 08:59 Last Admin: 12/18/16 09:49 Dose: 1 each Levetiracetam (Keppra) 1,000 mg GT Q12HR [facility] Stop: 02/11/17 08:59 Last Admin: 12/18/16 20:44 Dose: 1,000 mg Magnesium Hydroxide (Milk Of Magnesia) 30 ml PO TID PRN PRN Reason: Constipation Stop: 02/14/17 14:07 Last Admin: 12/16/16 14:41 Dose: 30 ml Miscellaneous (Probiotic Screen) 1 ea MC PRN PRN PRN Reason: PROTOCOL Stop: 02/11/17 14:59 Morphine Sulfate (Morphine) 2 mg IVP Q4HR PRN PRN Reason: Severe Pain Stop: 02/14/17 14:52 Last Admin: 12/19/16 03:05 Dose: 2 mg Pantoprazole Sodium (Protonix) 40 mg GT QAM PITO Stop: 02/11/17 08:59 Last Admin: 12/18/16 09:49 Dose: 40 mg Phenytoin (Dilantin) 100 mg GT BID PITO Stop: 02/11/17 08:59 Last Admin: 12/18/16 18:01 Dose: 100 mg General: Alert, Other (confused) HEENT: Atraumatic Cardiovascular: Regular rate Abdomen: Bowel sounds, Soft Extremities: Pulses Assessment/Plan - Assessment Assessment: sepsis poss sepsis syndrome anemia pneumonia myocardiac ischemia hyponatremia arthritis hx dysphagia hx gt status hx copd hx sleep apnea - Plan Plan: ivantibiotics iv fluid cpm Nutritional Asmnt/Malnutr-PDOC - Dietary Evaluation Malnutrition Findings (Please click <Entered> for more info): Nutritional Asmnt/Malnutrition Start: 12/13/16 15: 20 Text: Status: Complete Freq: Document 12/13/16 15:21 GSUN (Rec: 12/13/16 15:43 [email or web address] [email or web address]) Nutritional Asmnt/Malnutrition Patient General Information Nutritional Screening High Risk Screening Diagnosis ER report: RI, sepsis, PNA, dehydration, anemia, leykocytosis, weakness Pertinent Medical Hx/Surgical Hx ER report: HTN, DM, asthma/ COPD, dyslipidemia, PUD/GERD, arthritis Subjective Information 76 year old female from SNF. 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 Observed tube feeding infusing as ordered. Confirmed tube feeding order and on/off time with GREGORIO Lozano RN stated pt tolerating well since adm. Pt appeared mobidly obese. Unable to obtain CBW due to bedscale imporperly calibrated. Current Diet Order/ Nutrition Support Diabetisource 65ml/hr x 20hrs, providing 1560kcal, 78g protein Pertinent Medications D5-0.9%ns, Novolog, Levemir, Culturelle, Protonix, Dilatin Pertinent Labs 12/12: glucose 151H, triglycerides 215H, BUN 59H POC glucose 169H, 186H Nutritional Hx/Data Height 1.55 m Height (Calculated Centimeters) 154.9 Current Weight (lbs) 100.244 kg Weight (Calculated Kilograms) 100.2 Weight (Calculated Grams) 178371.9 [place] Body Weight 105 Weight Status Morbidly Obese GI Symptoms Food Allergies No Usual diet at home [facility]: glucerna 1.2 at 60ml/hr x 20hrs Skin Integrity/Comment: [place] 13. Left and right buttocks reddened. Estimated Nutritional Goals BEE in Kcals: Adj wt of IBW Calories/Kcals/Kg AdjBW 131.5lb/59.8kg (to 211lb adm weight 12/12/16) Kcals Calculated 1794-2093kcal (30-35kcal/kg) Protein: Adj wt of IBW Protein Calculated 72-90g (1.2-1.5g/kg) Fluid: ml 1794-2093ml (1ml/kcal) Nutritional Problem 1. Problem Problem Increased kcal and prot needs related to Etiology hypermatbolic state aeb Signs/Symptoms: PNA and sepsis per ER report Malnutrition Related to Morbid Obesity Malnutrition related to morbid obesity BMI> or equal to 40 Query Text:(Any 1 Criteria met) Malnutrition related to morbid obesity Yes Intervention/Recommendation Comments 1. Recommend increasing Diabetisource to 75ml/hr x 20hrs, providing 1800kcal, 90g protein, 1500ml total volume. Increased kcal and prot needs due to hypermetabolic state - sepsis, PNA per ER report. Expected Outcomes/Goals Expected Outcomes/Goals 1. Pt to meet at least 100% of estimated nutritinoal needs on tube feeding with tolerance .
[2016-12-19] MEDS: Levetiracetam 500 mg/5mL 5mL UDC GT SCH (09:32)
[2016-12-19] MEDS: Pantoprazole 40 mg/Packet GT SCH (09:33)
[2016-12-19] MEDS: Lactobacillus Rhamnosus 10 Billion CFU Capsule PO SCH (09:33)
[2016-12-19] MEDS: Insulin Detemir 100 units/mL 10mL Vial SUBQ SCH (12:24)
--- NOTE | 2016-12-19 15:35 | GI Progress Note ---
Subjective - Review of Systems Service Date: 12/19/16 Events since last encounter: US showed hydronephrosis, G tube feeds tolerated well Objective - Results Result Diagrams: 12/19/16 06:00 12/19/16 05:27 Recent Labs: Laboratory Last Values WBC 10.4 Th/cmm (4.8-10.8) 12/19/16 06:00 RBC 2.81 Mil/cmm (3.80-5.20) L 12/19/16 06:00 Hgb 8.7 gm/dL (12-16) L 12/19/16 06:00 Hct 26.1 % (41.0-60) L D 12/19/16 06:00 MCV 92.8 fl (81-100) 12/19/16 06:00 MCH 30.9 pg (27.0-31.0) 12/19/16 06:00 MCHC Differential 33.3 pg (28.0-36.0) 12/19/16 06:00 RDW 15.7 % (11.5-20.0) 12/19/16 06:00 Plt Count 232 Th/cmm (150-400) 12/19/16 06:00 MPV 9.0 fl 12/19/16 06:00 Neutrophils % 66.8 % (40.0-80.0) 12/19/16 06:00 Band Neutrophils % 4 % (0-10) 12/14/16 18:03 Lymphocytes % 18.3 % (20.0-50.0) L 12/19/16 06:00 Monocytes % 10.8 % (2.0-10.0) H 12/19/16 06:00 Eosinophils % 3.7 % (0.0-5.0) 12/19/16 06:00 Basophils % 0.4 % (0.0-2.0) 12/19/16 06:00 Neutrophils (Manual) 80 % (40-80) 12/14/16 18:03 Lymphocytes 13 % (20-50) L 12/14/16 18:03 Monocytes 3 % (2-10) 12/14/16 18:03 Eosinophils 1 % (0-5) 12/14/16 05:20 Platelet Estimate ADEQUATE (NORMAL) 12/14/16 18:03 PT 10.3 SECONDS (9.5-11.5) 12/18/16 05:35 INR 0.99 (0.5-1.4) 12/18/16 05:35 PTT (Actin FS) 22.0 SECONDS (26.0-38.0) L 12/12/16 21:56 Sodium 144 mEq/L (136-145) 12/19/16 05:27 Potassium 3.4 mEq/L (3.5-5.1) L 12/19/16 05:27 Chloride 112 mEq/L (98-107) H 12/19/16 05:27 Carbon Dioxide 26.2 mEq/L (21.0-31.0) 12/19/16 05:27 Anion Gap 9.2 (7.0-16.0) 12/19/16 05:27 BUN 36 mg/dL (7-25) H 12/19/16 05:27 Creatinine 0.9 mg/dL (0.6-1.2) 12/19/16 05:27 Est GFR ( Amer) TNP 12/19/16 05:27 Est GFR (Non-Af Amer) TNP 12/19/16 05:27 BUN/Creatinine Ratio 40.0 12/19/16 05:27 Glucose 186 mg/dL (70-105) H 12/19/16 05:27 POC Glucose 118 MG/DL (70 - 105) H 12/19/16 12:16 Hemoglobin A1c % 7.3 % (4.0-6.0) H 12/14/16 05:20 Whole Bld Lactic Acid 1.82 mmol/L (0.60-1.99) 12/12/16 21:56 Calcium 7.7 mg/dL (8.6-10.3) L 12/19/16 05:27 Magnesium 2.0 mg/dL (1.9-2.7) 12/19/16 05:27 Total Bilirubin 0.2 mg/dL (0.3-1.0) L 12/19/16 05:27 AST 18 U/L (13-39) 12/19/16 05:27 ALT 18 U/L (7-52) 12/19/16 05:27 Alkaline Phosphatase 60 U/L (34-104) 12/19/16 05:27 Creatine Kinase < 10 U/L (30-223) L 12/12/16 21:36 Troponin I 0.04 ng/mL (0.01-0.05) 12/12/16 21:56 B-Natriuretic Peptide 440.0 pg/mL (5.0-100.0) H 12/12/16 21:56 Total Protein 4.9 gm/dL (6.0-8.3) L 12/19/16 05:27 Albumin 1.8 gm/dL (3.7-5.3) L 12/19/16 05:27 Globulin 3.1 gm/dL 12/19/16 05:27 Albumin/Globulin Ratio 0.6 (1.0-1.8) L 12/19/16 05:27 Triglycerides 215 mg/dL (<150) H 12/12/16 21:36 Cholesterol 145 mg/dL (<200) 12/12/16 21:36 LDL Cholesterol Direct 87 mg/dL (75-193) 12/12/16 21:36 HDL Cholesterol 36 mg/dL (23-92) 12/12/16 21:36 Urine Source MIDSTREAM 12/12/16 23:15 Urine Color YELLOW 12/12/16 23:15 Urine Clarity CLOUDY (CLEAR) H 12/12/16 23:15 Urine pH 6.5 (4.6 - 8.0) 12/12/16 23:15 Ur Specific [place] 1.010 (1.005-1.030) 12/12/16 23:15 Urine Protein 100 mg/dL (NEGATIVE) H 12/12/16 23:15 Urine Glucose (UA) NEGATIVE mg/dL (NEGATIVE) 12/12/16 23:15 Urine Ketones NEGATIVE mg/dL (NEGATIVE) 12/12/16 23:15 Urine Blood TRACE (NEGATIVE) 12/12/16 23:15 Urine Nitrate POSITIVE (NEGATIVE) H 12/12/16 23:15 Urine Bilirubin NEGATIVE (NEGATIVE) 12/12/16 23:15 Urine Urobilinogen 0.2 E.U./dL (0.2 - 1.0) 12/12/16 23:15 Ur Leukocyte Esterase LARGE (NEGATIVE) H 12/12/16 23:15 Urine RBC 2-5 /hpf (0-5) 12/12/16 23:15 Urine WBC >100 /hpf (0-5) H 12/12/16 23:15 Ur Epithelial Cells MODERATE /lpf (FEW) 12/12/16 23:15 Urine Bacteria MANY /hpf (NONE SEEN) 12/12/16 23:15 Blood Type O POSITIVE 12/16/16 11:34 Antibody Screen NEGATIVE 12/16/16 11:34 Crossmatch See Detail 12/16/16 11:34 - Physical Exam Vitals and I&O: Vital Signs Temp 97.3 F 12/19/16 12:00 Pulse 69 12/19/16 12:00 Resp 18 12/19/16 12:00 BP 138/59 12/19/16 12:00 Pulse Ox 100 12/19/16 12:00 Intake & Output 12/18/16 12/19/16 12/19/16 18:59 06:59 18:59 Intake Total 850 740 Output Total 700 Balance 150 740 Weight (lbs) 110.813 kg Intake: Intake, IV Amount 50 740 D5-0.9%Ns 1,000 ml @ 50 640 mls/hr IV .Q20H [facility] Rx#: [id number] Piperacillin Sodium/ 50 100 Tazobact 3.375 gm In Sodium Chloride 0.9% 50 ml @ 100 mls/hr IV Q8HRT [facility] Rx#:[id number] Oral 0 Tube Feeding 600 Other 200 Output: Urine 700 Other: # Bowel Movements 0 Stool Characteristics Formed Soft Active Medications: Current Medications Acetaminophen (Tylenol Children) 320 mg GT Q4HR PRN PRN Reason: TEMP >100F Stop: 02/11/17 01:25 Last Admin: 12/18/16 20:49 Dose: 320 mg Acetaminophen (Tylenol Children) 320 mg PO Q4HR PRN PRN Reason: Pain (Mild) Stop: 02/11/17 01:25 Last Admin: 12/14/16 17:47 Dose: 320 mg Albuterol/Ipratropium (Duoneb Neb) 3 ml HHN Q2HR PRN PRN Reason: Shortness of Breath or Wheeze Stop: 02/11/17 01:25 Albuterol/Ipratropium (Duoneb Neb) 3 ml HHN Q4HRT [facility] Stop: 02/11/17 02:59 Last Admin: 12/19/16 11:18 Dose: 3 ml Amlodipine Besylate (Norvasc) 5 mg GT DAILY [facility] Stop: 02/11/17 08:59 Last Admin: 12/19/16 09:33 Dose: 5 mg Carvedilol (Coreg) 12.5 mg GT Q12HR PITO Stop: 02/11/17 08:59 Last Admin: 12/19/16 09:33 Dose: 12.5 mg Hydralazine HCl (Apresoline 20 Mg/Ml) 10 mg IV Q6HR PRN PRN Reason: DBP ABOVE 90/SBP ABOBE 160 Stop: 02/15/17 16:42 Last Admin: 12/17/16 17:48 Dose: 10 mg Ceftriaxone Sodium 1 gm/ (Sodium Chloride) 50 mls @ 100 mls/hr IV Q24HR PITO Stop: 02/11/17 02:59 Last Admin: 12/19/16 02:47 Dose: 100 mls/hr Dextrose/Sodium Chloride (D5-0.9%Ns) 1,000 mls @ 50 mls/hr IV .Q20H PITO Stop: 02/12/17 21:44 Last Admin: 12/19/16 03:03 Dose: 50 mls/hr Piperacillin Sod/Tazobactam (Sod 3.375 gm/ Sodium Chloride) 50 mls @ 100 mls/ hr IV Q8HRT PITO Stop: 02/15/17 14:59 Last Admin: 12/19/16 15:29 Dose: 100 mls/hr Insulin Aspart (Novolog Insulin Sliding Scale) 0 units SUBQ Q6HR PITO PRN Reason: Protocol Stop: 02/11/17 05:59 Last Admin: 12/19/16 12:21 Dose: Not Given Insulin Detemir (Levemir Insulin) 10 units SUBQ Q12HR PITO Stop: 02/11/17 08:59 Last Admin: 12/19/16 12:24 Dose: 10 units Lactobacillus Rhamnosus (Culturelle) 1 each PO DAILY PITO Stop: 02/12/17 08:59 Last Admin: 12/19/16 09:33 Dose: 1 each Levetiracetam (Keppra) 1,000 mg GT Q12HR PITO Stop: 02/11/17 08:59 Last Admin: 12/19/16 09:32 Dose: 1,000 mg Magnesium Hydroxide (Milk Of Magnesia) 30 ml PO TID PRN PRN Reason: Constipation Stop: 02/14/17 14:07 Last Admin: 12/16/16 14:41 Dose: 30 ml Miscellaneous (Probiotic Screen) 1 ea MC PRN PRN PRN Reason: PROTOCOL Stop: 02/11/17 14:59 Morphine Sulfate (Morphine) 2 mg IVP Q4HR PRN PRN Reason: Severe Pain Stop: 02/14/17 14:52 Last Admin: 12/19/16 13:11 Dose: 2 mg Pantoprazole Sodium (Protonix) 40 mg GT QAM PITO Stop: 02/11/17 08:59 Last Admin: 12/19/16 09:33 Dose: 40 mg Phenytoin (Dilantin) 100 mg GT BID [facility] Stop: 02/11/17 08:59 Last Admin: 12/19/16 09:33 Dose: 100 mg General: Alert, Other (confused) HEENT: Atraumatic Cardiovascular: Regular rate Abdomen: Bowel sounds, Soft, Other (G tube site c/d/i) - Procedures Procedures: Procedures Procedure Code Date CHANGE FEEDING DEVICE IN UP INTEST TRACT, 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 Tolerating feeds well at this time Hold for residual greater than 200 100cc water flushes every 6 hours # Hydronephrosis Pt reportedly transferring to [facility] for [facility]rology evaluation
--- NOTE | 2016-12-19 15:35 | GI Progress Note ---
Subjective - Review of Systems Service Date: 12/19/16 Events since last encounter: US showed hydronephrosis, G tube feeds tolerated well Objective - Results Result Diagrams: 12/19/16 06:00 12/19/16 05:27 Recent Labs: Laboratory Last Values WBC 10.4 Th/cmm (4.8-10.8) 12/19/16 06:00 RBC 2.81 Mil/cmm (3.80-5.20) L 12/19/16 06:00 Hgb 8.7 gm/dL (12-16) L 12/19/16 06:00 Hct 26.1 % (41.0-60) L D 12/19/16 06:00 MCV 92.8 fl (81-100) 12/19/16 06:00 MCH 30.9 pg (27.0-31.0) 12/19/16 06:00 MCHC Differential 33.3 pg (28.0-36.0) 12/19/16 06:00 RDW 15.7 % (11.5-20.0) 12/19/16 06:00 Plt Count 232 Th/cmm (150-400) 12/19/16 06:00 MPV 9.0 fl 12/19/16 06:00 Neutrophils % 66.8 % (40.0-80.0) 12/19/16 06:00 Band Neutrophils % 4 % (0-10) 12/14/16 18:03 Lymphocytes % 18.3 % (20.0-50.0) L 12/19/16 06:00 Monocytes % 10.8 % (2.0-10.0) H 12/19/16 06:00 Eosinophils % 3.7 % (0.0-5.0) 12/19/16 06:00 Basophils % 0.4 % (0.0-2.0) 12/19/16 06:00 Neutrophils (Manual) 80 % (40-80) 12/14/16 18:03 Lymphocytes 13 % (20-50) L 12/14/16 18:03 Monocytes 3 % (2-10) 12/14/16 18:03 Eosinophils 1 % (0-5) 12/14/16 05:20 Platelet Estimate ADEQUATE (NORMAL) 12/14/16 18:03 PT 10.3 SECONDS (9.5-11.5) 12/18/16 05:35 INR 0.99 (0.5-1.4) 12/18/16 05:35 PTT (Actin FS) 22.0 SECONDS (26.0-38.0) L 12/12/16 21:56 Sodium 144 mEq/L (136-145) 12/19/16 05:27 Potassium 3.4 mEq/L (3.5-5.1) L 12/19/16 05:27 Chloride 112 mEq/L (98-107) H 12/19/16 05:27 Carbon Dioxide 26.2 mEq/L (21.0-31.0) 12/19/16 05:27 Anion Gap 9.2 (7.0-16.0) 12/19/16 05:27 BUN 36 mg/dL (7-25) H 12/19/16 05:27 Creatinine 0.9 mg/dL (0.6-1.2) 12/19/16 05:27 Est GFR ( Amer) TNP 12/19/16 05:27 Est GFR (Non-Af Amer) TNP 12/19/16 05:27 BUN/Creatinine Ratio 40.0 12/19/16 05:27 Glucose 186 mg/dL (70-105) H 12/19/16 05:27 POC Glucose 118 MG/DL (70 - 105) H 12/19/16 12:16 Hemoglobin A1c % 7.3 % (4.0-6.0) H 12/14/16 05:20 Whole Bld Lactic Acid 1.82 mmol/L (0.60-1.99) 12/12/16 21:56 Calcium 7.7 mg/dL (8.6-10.3) L 12/19/16 05:27 Magnesium 2.0 mg/dL (1.9-2.7) 12/19/16 05:27 Total Bilirubin 0.2 mg/dL (0.3-1.0) L 12/19/16 05:27 AST 18 U/L (13-39) 12/19/16 05:27 ALT 18 U/L (7-52) 12/19/16 05:27 Alkaline Phosphatase 60 U/L (34-104) 12/19/16 05:27 Creatine Kinase < 10 U/L (30-223) L 12/12/16 21:36 Troponin I 0.04 ng/mL (0.01-0.05) 12/12/16 21:56 B-Natriuretic Peptide 440.0 pg/mL (5.0-100.0) H 12/12/16 21:56 Total Protein 4.9 gm/dL (6.0-8.3) L 12/19/16 05:27 Albumin 1.8 gm/dL (3.7-5.3) L 12/19/16 05:27 Globulin 3.1 gm/dL 12/19/16 05:27 Albumin/Globulin Ratio 0.6 (1.0-1.8) L 12/19/16 05:27 Triglycerides 215 mg/dL (<150) H 12/12/16 21:36 Cholesterol 145 mg/dL (<200) 12/12/16 21:36 LDL Cholesterol Direct 87 mg/dL (75-193) 12/12/16 21:36 HDL Cholesterol 36 mg/dL (23-92) 12/12/16 21:36 Urine Source MIDSTREAM 12/12/16 23:15 Urine Color YELLOW 12/12/16 23:15 Urine Clarity CLOUDY (CLEAR) H 12/12/16 23:15 Urine pH 6.5 (4.6 - 8.0) 12/12/16 23:15 Ur Specific [place] 1.010 (1.005-1.030) 12/12/16 23:15 Urine Protein 100 mg/dL (NEGATIVE) H 12/12/16 23:15 Urine Glucose (UA) NEGATIVE mg/dL (NEGATIVE) 12/12/16 23:15 Urine Ketones NEGATIVE mg/dL (NEGATIVE) 12/12/16 23:15 Urine Blood TRACE (NEGATIVE) 12/12/16 23:15 Urine Nitrate POSITIVE (NEGATIVE) H 12/12/16 23:15 Urine Bilirubin NEGATIVE (NEGATIVE) 12/12/16 23:15 Urine Urobilinogen 0.2 E.U./dL (0.2 - 1.0) 12/12/16 23:15 Ur Leukocyte Esterase LARGE (NEGATIVE) H 12/12/16 23:15 Urine RBC 2-5 /hpf (0-5) 12/12/16 23:15 Urine WBC >100 /hpf (0-5) H 12/12/16 23:15 Ur Epithelial Cells MODERATE /lpf (FEW) 12/12/16 23:15 Urine Bacteria MANY /hpf (NONE SEEN) 12/12/16 23:15 Blood Type O POSITIVE 12/16/16 11:34 Antibody Screen NEGATIVE 12/16/16 11:34 Crossmatch See Detail 12/16/16 11:34 - Physical Exam Vitals and I&O: Vital Signs Temp 97.3 F 12/19/16 12:00 Pulse 69 12/19/16 12:00 Resp 18 12/19/16 12:00 BP 138/59 12/19/16 12:00 Pulse Ox 100 12/19/16 12:00 Intake & Output 12/18/16 12/19/16 12/19/16 18:59 06:59 18:59 Intake Total 850 740 Output Total 700 Balance 150 740 Weight (lbs) 110.813 kg Intake: Intake, IV Amount 50 740 D5-0.9%Ns 1,000 ml @ 50 640 mls/hr IV .Q20H [facility] Rx#: [id number] Piperacillin Sodium/ 50 100 Tazobact 3.375 gm In Sodium Chloride 0.9% 50 ml @ 100 mls/hr IV Q8HRT [facility] Rx#:[id number] Oral 0 Tube Feeding 600 Other 200 Output: Urine 700 Other: # Bowel Movements 0 Stool Characteristics Formed Soft Active Medications: Current Medications Acetaminophen (Tylenol Children) 320 mg GT Q4HR PRN PRN Reason: TEMP >100F Stop: 02/11/17 01:25 Last Admin: 12/18/16 20:49 Dose: 320 mg Acetaminophen (Tylenol Children) 320 mg PO Q4HR PRN PRN Reason: Pain (Mild) Stop: 02/11/17 01:25 Last Admin: 12/14/16 17:47 Dose: 320 mg Albuterol/Ipratropium (Duoneb Neb) 3 ml HHN Q2HR PRN PRN Reason: Shortness of Breath or Wheeze Stop: 02/11/17 01:25 Albuterol/Ipratropium (Duoneb Neb) 3 ml HHN Q4HRT [facility] Stop: 02/11/17 02:59 Last Admin: 12/19/16 11:18 Dose: 3 ml Amlodipine Besylate (Norvasc) 5 mg GT DAILY [facility] Stop: 02/11/17 08:59 Last Admin: 12/19/16 09:33 Dose: 5 mg Carvedilol (Coreg) 12.5 mg GT Q12HR PITO Stop: 02/11/17 08:59 Last Admin: 12/19/16 09:33 Dose: 12.5 mg Hydralazine HCl (Apresoline 20 Mg/Ml) 10 mg IV Q6HR PRN PRN Reason: DBP ABOVE 90/SBP ABOBE 160 Stop: 02/15/17 16:42 Last Admin: 12/17/16 17:48 Dose: 10 mg Ceftriaxone Sodium 1 gm/ (Sodium Chloride) 50 mls @ 100 mls/hr IV Q24HR PITO Stop: 02/11/17 02:59 Last Admin: 12/19/16 02:47 Dose: 100 mls/hr Dextrose/Sodium Chloride (D5-0.9%Ns) 1,000 mls @ 50 mls/hr IV .Q20H PITO Stop: 02/12/17 21:44 Last Admin: 12/19/16 03:03 Dose: 50 mls/hr Piperacillin Sod/Tazobactam (Sod 3.375 gm/ Sodium Chloride) 50 mls @ 100 mls/ hr IV Q8HRT PITO Stop: 02/15/17 14:59 Last Admin: 12/19/16 15:29 Dose: 100 mls/hr Insulin Aspart (Novolog Insulin Sliding Scale) 0 units SUBQ Q6HR PITO PRN Reason: Protocol Stop: 02/11/17 05:59 Last Admin: 12/19/16 12:21 Dose: Not Given Insulin Detemir (Levemir Insulin) 10 units SUBQ Q12HR PITO Stop: 02/11/17 08:59 Last Admin: 12/19/16 12:24 Dose: 10 units Lactobacillus Rhamnosus (Culturelle) 1 each PO DAILY PITO Stop: 02/12/17 08:59 Last Admin: 12/19/16 09:33 Dose: 1 each Levetiracetam (Keppra) 1,000 mg GT Q12HR PITO Stop: 02/11/17 08:59 Last Admin: 12/19/16 09:32 Dose: 1,000 mg Magnesium Hydroxide (Milk Of Magnesia) 30 ml PO TID PRN PRN Reason: Constipation Stop: 02/14/17 14:07 Last Admin: 12/16/16 14:41 Dose: 30 ml Miscellaneous (Probiotic Screen) 1 ea MC PRN PRN PRN Reason: PROTOCOL Stop: 02/11/17 14:59 Morphine Sulfate (Morphine) 2 mg IVP Q4HR PRN PRN Reason: Severe Pain Stop: 02/14/17 14:52 Last Admin: 12/19/16 13:11 Dose: 2 mg Pantoprazole Sodium (Protonix) 40 mg GT QAM PITO Stop: 02/11/17 08:59 Last Admin: 12/19/16 09:33 Dose: 40 mg Phenytoin (Dilantin) 100 mg GT BID [facility] Stop: 02/11/17 08:59 Last Admin: 12/19/16 09:33 Dose: 100 mg General: Alert, Other (confused) HEENT: Atraumatic Cardiovascular: Regular rate Abdomen: Bowel sounds, Soft, Other (G tube site c/d/i) - Procedures Procedures: Procedures Procedure Code Date CHANGE FEEDING DEVICE IN UP INTEST TRACT, [employer] APPROACH [id number] 12/12/[address] GASTROSTOMY TUBE 75250 12/12/16 Assessment/Plan - Assessment Assessment: # G tube malfunction Now replaced with 20F G tube at endoscopy on 12/18. Tolerating feeds well at this time Hold for residual greater than 200 100cc water flushes every 6 hours # Hydronephrosis Pt reportedly transferring to [facility] for [facility]rology evaluation
--- NOTE | 2016-12-19 15:35 | GI Progress Note ---
Subjective - Review of Systems Service Date: 12/19/16 Events since last encounter: US showed hydronephrosis, G tube feeds tolerated well Objective - Results Result Diagrams: 12/19/16 06:00 12/19/16 05:27 Recent Labs: Laboratory Last Values WBC 10.4 Th/cmm (4.8-10.8) 12/19/16 06:00 RBC 2.81 Mil/cmm (3.80-5.20) L 12/19/16 06:00 Hgb 8.7 gm/dL (12-16) L 12/19/16 06:00 Hct 26.1 % (41.0-60) L D 12/19/16 06:00 MCV 92.8 fl (81-100) 12/19/16 06:00 MCH 30.9 pg (27.0-31.0) 12/19/16 06:00 MCHC Differential 33.3 pg (28.0-36.0) 12/19/16 06:00 RDW 15.7 % (11.5-20.0) 12/19/16 06:00 Plt Count 232 Th/cmm (150-400) 12/19/16 06:00 MPV 9.0 fl 12/19/16 06:00 Neutrophils % 66.8 % (40.0-80.0) 12/19/16 06:00 Band Neutrophils % 4 % (0-10) 12/14/16 18:03 Lymphocytes % 18.3 % (20.0-50.0) L 12/19/16 06:00 Monocytes % 10.8 % (2.0-10.0) H 12/19/16 06:00 Eosinophils % 3.7 % (0.0-5.0) 12/19/16 06:00 Basophils % 0.4 % (0.0-2.0) 12/19/16 06:00 Neutrophils (Manual) 80 % (40-80) 12/14/16 18:03 Lymphocytes 13 % (20-50) L 12/14/16 18:03 Monocytes 3 % (2-10) 12/14/16 18:03 Eosinophils 1 % (0-5) 12/14/16 05:20 Platelet Estimate ADEQUATE (NORMAL) 12/14/16 18:03 PT 10.3 SECONDS (9.5-11.5) 12/18/16 05:35 INR 0.99 (0.5-1.4) 12/18/16 05:35 PTT (Actin FS) 22.0 SECONDS (26.0-38.0) L 12/12/16 21:56 Sodium 144 mEq/L (136-145) 12/19/16 05:27 Potassium 3.4 mEq/L (3.5-5.1) L 12/19/16 05:27 Chloride 112 mEq/L (98-107) H 12/19/16 05:27 Carbon Dioxide 26.2 mEq/L (21.0-31.0) 12/19/16 05:27 Anion Gap 9.2 (7.0-16.0) 12/19/16 05:27 BUN 36 mg/dL (7-25) H 12/19/16 05:27 Creatinine 0.9 mg/dL (0.6-1.2) 12/19/16 05:27 Est GFR ( Amer) TNP 12/19/16 05:27 Est GFR (Non-Af Amer) TNP 12/19/16 05:27 BUN/Creatinine Ratio 40.0 12/19/16 05:27 Glucose 186 mg/dL (70-105) H 12/19/16 05:27 POC Glucose 118 MG/DL (70 - 105) H 12/19/16 12:16 Hemoglobin A1c % 7.3 % (4.0-6.0) H 12/14/16 05:20 Whole Bld Lactic Acid 1.82 mmol/L (0.60-1.99) 12/12/16 21:56 Calcium 7.7 mg/dL (8.6-10.3) L 12/19/16 05:27 Magnesium 2.0 mg/dL (1.9-2.7) 12/19/16 05:27 Total Bilirubin 0.2 mg/dL (0.3-1.0) L 12/19/16 05:27 AST 18 U/L (13-39) 12/19/16 05:27 ALT 18 U/L (7-52) 12/19/16 05:27 Alkaline Phosphatase 60 U/L (34-104) 12/19/16 05:27 Creatine Kinase < 10 U/L (30-223) L 12/12/16 21:36 Troponin I 0.04 ng/mL (0.01-0.05) 12/12/16 21:56 B-Natriuretic Peptide 440.0 pg/mL (5.0-100.0) H 12/12/16 21:56 Total Protein 4.9 gm/dL (6.0-8.3) L 12/19/16 05:27 Albumin 1.8 gm/dL (3.7-5.3) L 12/19/16 05:27 Globulin 3.1 gm/dL 12/19/16 05:27 Albumin/Globulin Ratio 0.6 (1.0-1.8) L 12/19/16 05:27 Triglycerides 215 mg/dL (<150) H 12/12/16 21:36 Cholesterol 145 mg/dL (<200) 12/12/16 21:36 LDL Cholesterol Direct 87 mg/dL (75-193) 12/12/16 21:36 HDL Cholesterol 36 mg/dL (23-92) 12/12/16 21:36 Urine Source MIDSTREAM 12/12/16 23:15 Urine Color YELLOW 12/12/16 23:15 Urine Clarity CLOUDY (CLEAR) H 12/12/16 23:15 Urine pH 6.5 (4.6 - 8.0) 12/12/16 23:15 Ur Specific [place] 1.010 (1.005-1.030) 12/12/16 23:15 Urine Protein 100 mg/dL (NEGATIVE) H 12/12/16 23:15 Urine Glucose (UA) NEGATIVE mg/dL (NEGATIVE) 12/12/16 23:15 Urine Ketones NEGATIVE mg/dL (NEGATIVE) 12/12/16 23:15 Urine Blood TRACE (NEGATIVE) 12/12/16 23:15 Urine Nitrate POSITIVE (NEGATIVE) H 12/12/16 23:15 Urine Bilirubin NEGATIVE (NEGATIVE) 12/12/16 23:15 Urine Urobilinogen 0.2 E.U./dL (0.2 - 1.0) 12/12/16 23:15 Ur Leukocyte Esterase LARGE (NEGATIVE) H 12/12/16 23:15 Urine RBC 2-5 /hpf (0-5) 12/12/16 23:15 Urine WBC >100 /hpf (0-5) H 12/12/16 23:15 Ur Epithelial Cells MODERATE /lpf (FEW) 12/12/16 23:15 Urine Bacteria MANY /hpf (NONE SEEN) 12/12/16 23:15 Blood Type O POSITIVE 12/16/16 11:34 Antibody Screen NEGATIVE 12/16/16 11:34 Crossmatch See Detail 12/16/16 11:34 - Physical Exam Vitals and I&O: Vital Signs Temp 97.3 F 12/19/16 12:00 Pulse 69 12/19/16 12:00 Resp 18 12/19/16 12:00 BP 138/59 12/19/16 12:00 Pulse Ox 100 12/19/16 12:00 Intake & Output 12/18/16 12/19/16 12/19/16 18:59 06:59 18:59 Intake Total 850 740 Output Total 700 Balance 150 740 Weight (lbs) 110.813 kg Intake: Intake, IV Amount 50 740 D5-0.9%Ns 1,000 ml @ 50 640 mls/hr IV .Q20H [facility] Rx#: [id number] Piperacillin Sodium/ 50 100 Tazobact 3.375 gm In Sodium Chloride 0.9% 50 ml @ 100 mls/hr IV Q8HRT [facility] Rx#:[id number] Oral 0 Tube Feeding 600 Other 200 Output: Urine 700 Other: # Bowel Movements 0 Stool Characteristics Formed Soft Active Medications: Current Medications Acetaminophen (Tylenol Children) 320 mg GT Q4HR PRN PRN Reason: TEMP >100F Stop: 02/11/17 01:25 Last Admin: 12/18/16 20:49 Dose: 320 mg Acetaminophen (Tylenol Children) 320 mg PO Q4HR PRN PRN Reason: Pain (Mild) Stop: 02/11/17 01:25 Last Admin: 12/14/16 17:47 Dose: 320 mg Albuterol/Ipratropium (Duoneb Neb) 3 ml HHN Q2HR PRN PRN Reason: Shortness of Breath or Wheeze Stop: 02/11/17 01:25 Albuterol/Ipratropium (Duoneb Neb) 3 ml HHN Q4HRT [facility] Stop: 02/11/17 02:59 Last Admin: 12/19/16 11:18 Dose: 3 ml Amlodipine Besylate (Norvasc) 5 mg GT DAILY [facility] Stop: 02/11/17 08:59 Last Admin: 12/19/16 09:33 Dose: 5 mg Carvedilol (Coreg) 12.5 mg GT Q12HR [facility] Stop: 02/11/17 08:59 Last Admin: 12/19/16 09:33 Dose: 12.5 mg Hydralazine HCl (Apresoline 20 Mg/Ml) 10 mg IV Q6HR PRN PRN Reason: DBP ABOVE 90/SBP ABOBE 160 Stop: 02/15/17 16:42 Last Admin: 12/17/16 17:48 Dose: 10 mg Ceftriaxone Sodium 1 gm/ (Sodium Chloride) 50 mls @ 100 mls/hr IV Q24HR [facility] Stop: 02/11/17 02:59 Last Admin: 12/19/16 02:47 Dose: 100 mls/hr Dextrose/Sodium Chloride (D5-0.9%Ns) 1,000 mls @ 50 mls/hr IV .Q20H [facility] Stop: 02/12/17 21:44 Last Admin: 12/19/16 03:03 Dose: 50 mls/hr Piperacillin Sod/Tazobactam (Sod 3.375 gm/ Sodium Chloride) 50 mls @ 100 mls/ hr IV Q8HRT [facility] Stop: 02/15/17 14:59 Last Admin: 12/19/16 15:29 Dose: 100 mls/hr Insulin Aspart (Novolog Insulin Sliding Scale) 0 units SUBQ Q6HR [facility] PRN Reason: Protocol Stop: 02/11/17 05:59 Last Admin: 12/19/16 12:21 Dose: Not Given Insulin Detemir (Levemir Insulin) 10 units SUBQ Q12HR [facility] Stop: 02/11/17 08:59 Last Admin: 12/19/16 12:24 Dose: 10 units Lactobacillus Rhamnosus (Culturelle) 1 each PO DAILY [facility] Stop: 02/12/17 08:59 Last Admin: 12/19/16 09:33 Dose: 1 each Levetiracetam (Keppra) 1,000 mg GT Q12HR [facility] Stop: 02/11/17 08:59 Last Admin: 12/19/16 09:32 Dose: 1,000 mg Magnesium Hydroxide (Milk Of Magnesia) 30 ml PO TID PRN PRN Reason: Constipation Stop: 02/14/17 14:07 Last Admin: 12/16/16 14:41 Dose: 30 ml Miscellaneous (Probiotic Screen) 1 ea MC PRN PRN PRN Reason: PROTOCOL Stop: 02/11/17 14:59 Morphine Sulfate (Morphine) 2 mg IVP Q4HR PRN PRN Reason: Severe Pain Stop: 02/14/17 14:52 Last Admin: 12/19/16 13:11 Dose: 2 mg Pantoprazole Sodium (Protonix) 40 mg GT QAM [facility] Stop: 02/11/17 08:59 Last Admin: 12/19/16 09:33 Dose: 40 mg Phenytoin (Dilantin) 100 mg GT BID [facility] Stop: 02/11/17 08:59 Last Admin: 12/19/16 09:33 Dose: 100 mg General: Alert, Other (confused) HEENT: Atraumatic Cardiovascular: Regular rate Abdomen: Bowel sounds, Soft, Other (G tube site c/d/i) - Procedures Procedures: Procedures Procedure Code Date CHANGE FEEDING DEVICE IN UP INTEST TRACT, SEWER TAPPER APPROACH [id number] 12/12/[address] GASTROSTOMY TUBE 51709 12/12/16 Assessment/Plan - Assessment Assessment: # G tube malfunction Now replaced with 20F G tube at endoscopy on 12/18. Tolerating feeds well at this time Hold for residual greater than 200 100cc water flushes every 6 hours # Hydronephrosis Pt reportedly transferring to [facility] for [facility]rology evaluation
[2016-12-19] MEDS ORDERED: Influenza Vaccine 0.5 mL Syr IM ONE (17:15)
[2016-12-19] MEDS ORDERED: Pneumococcal Vaccine 0.5 mL Vial IM ONE (17:15)
--- NOTE | 2016-12-22 21:33 | Discharge Summary ---
DATE OF DISCHARGE: 12/19/2016 COURSE OF TREATMENT: This is a 76-year-old female who was admitted to the Emergency Room from a alf facility due to weakness. Workup was done in the Emergency Room on to which the patient was diagnosed with weakness, dehydration, pneumonia, sepsis, and myocardial ischemia. The patient was then admitted to telemetry unit in which the patient received a series of IV antibiotics, IV hydration, and also breathing treatment and was stable. The patient was discharged to long-term acute care for antibiotic management. The patient was discharged to [facility] on to which Dr. Galvan to follow. Medication reconciliation was done accordingly. JOB# [id number]
--- NOTE | 2016-12-22 21:33 | Discharge Summary ---
DATE OF DISCHARGE: 12/19/2016 COURSE OF TREATMENT: This is a 76-year-old female who was admitted to the Emergency Room from a nursing home facility due to weakness. Workup was done in the Emergency Room on to which the patient was diagnosed with weakness, dehydration, pneumonia, sepsis, and myocardial ischemia. The patient was then admitted to telemetry unit in which the patient received a series of IV antibiotics, IV hydration, and also breathing treatment and was stable. The patient was discharged to long-term acute care for antibiotic management. The patient was discharged to [facility] on to which Dr. Galvan to follow. Medication reconciliation was done accordingly. JOB# [id number]
--- NOTE | 2016-12-22 21:33 | Discharge Summary ---
DATE OF DISCHARGE: 12/19/2016 COURSE OF TREATMENT: This is a 76-year-old female who was admitted to the Emergency Room from a senior care facility due to weakness. Workup was done in the Emergency Room on to which the patient was diagnosed with weakness, dehydration, pneumonia, sepsis, and myocardial ischemia. The patient was then admitted to telemetry unit in which the patient received a series of IV antibiotics, IV hydration, and also breathing treatment and was stable. The patient was discharged to long-term acute care for antibiotic management. The patient was discharged to [facility] on to which Dr. Galvan to follow. Medication reconciliation was done accordingly. JOB# [id number]
--- NOTE | 2016-12-24 09:32 | Discharge Summary ---
DATE OF DISCHARGE: 12/19/2016 HOSPITAL COURSE: The patient was admitted on 12/12/2016 and discharged on 12/19/2016 to [facility]. The patient has been [facility] and went to [facility]. From there, the patient became septic ____ [place] and initial diagnosis sepsis, anemia, pneumonia, and the patient had myocardial ischemia, hyponatremia, arthritis, status post gastrotomy, COPD, sleep apnea. The patient had problem with her ____ G-tube displacement and replacement. The patient improved and Dr. Meyer saw the patient. The patient was in stable condition ____ sepsis. On 12/19/2016, [facility] where I will follow the patient. FINAL DIAGNOSES: Sepsis, ____ to be treated, status post G-tube, history of dysphagia, history of severe ____. JOB# [id number]
--- NOTE | 2016-12-24 09:32 | Discharge Summary ---
DATE OF DISCHARGE: 12/19/2016 HOSPITAL COURSE: The patient was admitted on 12/12/2016 and discharged on 12/19/2016 to [facility]. The patient has been [facility] and went to [facility]. From there, the patient became septic ____ [place] and initial diagnosis sepsis, anemia, pneumonia, and the patient had myocardial ischemia, hyponatremia, arthritis, status post gastrotomy, COPD, sleep apnea. The patient had problem with her ____ G-tube displacement and replacement. The patient improved and Dr. Meyer saw the patient. The patient was in stable condition ____ sepsis. On 12/19/2016, the patient discharged to senior care where I will follow the patient. FINAL DIAGNOSES: Sepsis, ____ to be treated, status post G-tube, history of dysphagia, history of severe ____. JOB# [id number]
--- NOTE | 2016-12-24 09:32 | Discharge Summary ---
DATE OF DISCHARGE: 12/19/2016 HOSPITAL COURSE: The patient was admitted on 12/12/2016 and discharged on 12/19/2016 to [facility]. The patient has been [facility] and went to [facility]. From there, the patient became septic ____ [place] and initial diagnosis sepsis, anemia, pneumonia, and the patient had myocardial ischemia, hyponatremia, arthritis, status post gastrotomy, COPD, sleep apnea. The patient had problem with her ____ G-tube displacement and replacement. The patient improved and Dr. Meyer saw the patient. The patient was in stable condition ____ sepsis. On 12/19/2016, the patient discharged to [facility] where I will follow the patient. FINAL DIAGNOSES: Sepsis, ____ to be treated, status post G-tube, history of dysphagia, history of severe ____. JOB# [id number]
== END 2016-12-19 19:00 | disposition short-term general hospital (02) | DRG 393 ==
LOC: ER 20:53 → TELE 23:45 → MSI 12-15 11:14
PROVIDERS: ADMIT Internal Medicine; ATTEND Internal Medicine
PROC: 0D20XUZ Change Feeding Device in Upper Intestinal Tract, External Approach (ICD-10-PCS; principal; 2016-12-18)
DX: K94.23 Gastrostomy malfunction (principal); A41.9 Sepsis, unspecified organism; J18.9 Pneumonia, unspecified organism; N13.30 Unspecified hydronephrosis; R56.9 Unspecified convulsions; D64.9 Anemia, unspecified; E87.1 Hypo-osmolality and hyponatremia; E86.0 Dehydration; J44.0 Chronic obstructive pulmonary disease with (acute) lower respiratory infection; R13.10 Dysphagia, unspecified; N39.0 Urinary tract infection, site not specified; E11.9 Type 2 diabetes mellitus without complications; F03.90 Unspecified dementia, unspecified severity, without behavioral disturbance, psychotic disturbance, mood disturbance, and anxiety; I10 Essential (primary) hypertension; M19.90 Unspecified osteoarthritis, unspecified site; K29.70 Gastritis, unspecified, without bleeding; Y83.8 Other surgical procedures as the cause of abnormal reaction of the patient, or of later complication, without mention of misadventure at the time of the procedure; E78.5 Hyperlipidemia, unspecified; K56.41 Fecal impaction; B96.89 Other specified bacterial agents as the cause of diseases classified elsewhere; G47.33 Obstructive sleep apnea (adult) (pediatric); I25.9 Chronic ischemic heart disease, unspecified; K21.9 Gastro-esophageal reflux disease without esophagitis; Z83.3 Family history of diabetes mellitus; Z82.49 Family history of ischemic heart disease and other diseases of the circulatory system; Z79.4 Long term (current) use of insulin; Y92.89 Other specified places as the place of occurrence of the external cause
CPT/HCPCS: 36415-UA; 71010-TC; 76770-TC; 80048-TC; 80053-TC; 80061-TC; 81001-TC; 82550-TC; 82948-90; 83036-90; 83605; 83735-TC; 83880-TC; 84484-TC; 85007-TC; 85025-TC; 85027-TC; 85610-TC; 85730-TC; 86850-TC; 86900-TC; 86901-TC; 86922-TC; 87086-90; 93005; 94640; 94760; J0360; J0696; J1815; J1956; J2270; J2543; J2704; J7042; P9016; Z7506; Z7610